=== PATIENT | female | born 1955 | race Caucasian/White ===

== ENCOUNTER → 2018-06-25 | Day surgery (SDC) | payer OTHER ==
--- NOTE | 2018-07-01 14:29 | PATH ---
Cytology Non-Gynecological Report Patient Name: MOHAMUD HYLTON [facility]. Rec. #: [id number] /Age/Gender: 1955 (Age: 62) / F Account: [id number] Location: RADIOLOGY INTER Taken: 06/25/2018 Received: 06/25/2018 Reported: 06/26/2018 Physicians: Casi Bobo M.D. Specimen(s) Received RIGHT THYROID FNA Clinical History Right thyroid nodule, 2.47 x 2.01 x 1.47 cm Final Diagnosis THYROID, RIGHT, FINE NEEDLE ASPIRATION: SATISFACTORY FOR EVALUATION. BETHESDA CLASS II: BENIGN. CYTOLOGIC FINDINGS ARE CONSISTENT WITH A BENIGN FOLLICULAR NODULE. SMALL FOLLICULAR CELLS, COLLOID, RARE MACROPHAGES, AND FEW LYMPHOCYTES PRESENT. Electronically Signed Becky Bone M.D. Gross Description Received are eight direct smears, four of which are air-dried and Diff-Quik stained, and four of which are alcohol fixed and Pap stained. Also received is 20 ml of bloody formalin from which one cellblock is prepared.
== END | disposition home or self-care (01) ==
LOC: JRADIR 08:25
PROVIDERS: ATTEND Internal Medicine
PROC: 0G9H3ZX Drainage of Right Thyroid Gland Lobe, Percutaneous Approach, Diagnostic (ICD-10-PCS; principal; 2018-06-25)
DX: E04.1 Nontoxic single thyroid nodule (principal)
CPT/HCPCS: 76942; 88173; 88305-TC

== ENCOUNTER 2019-02-24 20:39 | Inpatient (IN) | payer OTHER | END 2019-02-27 14:46 | disposition home or self-care (01) | LOC: JERBED 02-25 03:49 → JER 20:39 → J4W 02-25 18:06 ==

== ENCOUNTER 2019-03-01 03:10 | Inpatient (IN) | payer OTHER ==
[2019-03-01] MEDS ORDERED: MAGNESIUM SULF 50% (8.12 MEQ/2 ML-1 GM VIAL) IVPB ONE (03:44)
[2019-03-01] MEDS ORDERED: ALBUTEROL SO4 2.5/IPRATROPIUM 0.5 INH SOL 3 ML VIAL.NEB. NEB ONE ×3 (03:44→08:42)
[2019-03-01] MEDS ORDERED: SODIUM CHLORIDE 1,000 ML IV STA (03:44)
[2019-03-01] MEDS ORDERED: methylPREDNISolone NA SUCC 125 MG/2 ML VIAL IVPB ONE (03:44)
[2019-03-01 03:46] VITALS: BMI 35.5
[2019-03-01] MEDS ORDERED: MAGNESIUM 1GM/D5W - 2 GM/200 ML IVPB IVPB ONE (04:03)
[2019-03-01] MEDS ORDERED: methylPREDNISolone NA SUCC 125 MG/2 ML VIAL ONE (04:03)
--- NOTE | 2019-03-01 04:08 | PDOC ---
History of Present Illness - General Chief Complaint: Shortness of Breath Stated Complaint: SHORTNESS OF BREATH Time Seen by Provider: 03/01/19 03:37 History Source: Patient Exam Limitations: No Limitations - History of Present Illness Initial Comments: 63 yo F w a hx of asthma, bronchitis, thyroid disease presents with SOB stating she believes she is having an asthma attack. The patient was recently discharged from the hospital but says she has not felt right ever since going home. She was initially able to go about her daily activities but she became progressively short of breath to the point where her nebulizers were not working and she was extremely tired, short of breath and started feeling like she is having a bad asthma exacerbation again. She felt like she needed to come back into the hospital because she could not breathe well on her own. The patient also endorses nausea associated with occasional vomiting. She states that when she coughs alot she feels like some blood comes up at the same time. PCP: Dr. Berrios PSH: b/l knee replacements, cardiac cath without stents Social Hx: Former smoker. Denies current toxic habits. Allergies: NKA, NKDA Past History - Past Medical History Allergies/Adverse Reactions: Allergies Allergy/AdvReac Type Severity Reaction Status Date / Time No Known Drug Allergies Allergy Verified 03/01/19 03:44 Home Medications: Ambulatory Orders Albuterol 0.083% Nebulizer Kristyn [Ventolin 0.083% Nebulizer Soln -] 1 neb NEB QID 02/25/19 Budesonide/Formeterol Fumarate [SYMBICORT 80/4.5mcg -] 2 puff IH BID #1 inhaler 02/27/19 Lisinopril [Prinivil] 20 mg PO DAILY #60 tablet 02/27/19 predniSONE [Deltasone -] 20 mg PO ASDIR #17 tablet 02/27/19 Anemia: Yes Asthma: Yes Cancer: No Cardiac Disorders: No CVA: No COPD: No CHF: Yes Dementia: No Diabetes: No GI Disorders: No Disorders: No HTN: Yes Hypercholesterolemia: No Liver Disease: No Seizures: No Thyroid Disease: Yes - Surgical History Abdominal Surgery: No Appendectomy: No Cardiac Surgery: No Cholecystectomy: No Lung Surgery: No Neurologic Surgery: No Orthopedic Surgery: Yes (BILATERAL KNEE ARTHROSCOPY) - Suicide/Smoking/Psychosocial Hx Smoking History: Unknown if ever smoked Have you smoked in the past 12 months: No Number of Cigarettes Smoked Daily: 0 If you are a former smoker, when did you quit?: 40 Information on smoking cessation initiated: No Hx Alcohol Use: No Drug/Substance Use Hx: No Substance Use Type: None, Alcohol Hx Substance Use Treatment: No Review of Systems - Review of Systems Able to Perform ROS?: Yes Comments:: CONSTITUTIONAL: No fever, no chills, + fatigue EYES: No visual changes ENT: No ear pain, no sore throat CARDIOVASCULAR: + chest pain, no palpitations RESPIRATORY: + cough, + SOB GI: No abdominal pain, no nausea, no vomiting, no constipation, no diarrhea GENITOURINARY: No dysuria, no frequency, no hematuria MUSKULOSKELETAL: No backpain, no joint pain, no myalgias SKIN: No rash NEURO: No headache *Physical Exam - Vital Signs Last Vital Signs Temp Pulse Resp BP Pulse Ox 99.7 F H 102 H 22 H 159/80 89 L 03/01/19 03:20 03/01/19 03:20 03/01/19 03:20 03/01/19 03:20 03/01/19 03:20 - Physical Exam Comments: CONSTITUTIONAL: Patient is sitting up in bed struggling to breathe. Moderate distress. HEAD: Normocephalic; atraumatic EYES: PERRL; EOM intact ENMT: External appears normal; normal oropharynx NECK: Supple; non-tender; no cervical lymphadenopathy CARD: Tachycardic rate. Normal S1, S2; no murmurs, rubs, or gallops RESP: The patient is having a hard time getting air in. She has diffuse bilateral wheezes and rhonchi on the right side of her chest. ABD: Soft, non-distended; non-tender; no palpable organomegaly, no palpable hernias EXT: Normal ROM in all four extremities; non-tender to palpation; distal pulses intact SKIN: Warm, dry, no rash NEURO: No focal neurological deficiencies. ED Treatment Course - LABORATORY CBC & Chemistry Diagram: 03/01/19 03:56 03/01/19 03:56 - RADIOLOGY Radiology Studies Ordered: Category Date Time Status CHEST X-RAY PORTABLE* [RAD] Stat Radiology 03/01/19 03:45 Ordered Medical Decision Making - Medical Decision Making 63 yo F w a hx of asthma, bronchitis, thyroid disease presents with SOB stating she believes she is having an asthma attack. The patient was recently discharged from the hospital but says she has not felt right ever since going home. She was initially able to go about her daily activities but she became progressively short of breath to the point where her nebulizers were not working and she was extremely tired, short of breath and started feeling like she is having a bad asthma exacerbation again. She felt like she needed to come back into the hospital because she could not breathe well on her own. The patient also endorses nausea associated with occasional vomiting. She states that when she coughs alot she feels like some blood comes up at the same time. Vital Signs Temp Pulse Resp BP Pulse Ox 99.7 F H 102 H 22 H 159/80 89 L 03/01/19 03:20 03/01/19 03:20 03/01/19 03:20 03/01/19 03:20 03/01/19 03:20 DDx IBNLT: Asthma exacerbation, bronchitis, PNA, electrolyte/metabolic disturbance, CHF, ACS/NV Plan: Labs, ekg, cxr, breathing treatments, steroids, mag, Abx, probable admit. CXR shows right sided infiltrate - Will cover patient with Abx and then admit to the hospital *DC/Admit/Observation/Transfer Diagnosis at time of Disposition: PNA (pneumonia), Asthma exacerbation, Elevated troponin, CHF (congestive heart failure), Bronchitis, Ground glass opacity present on imaging of lung, Obesity, Shortness of breath, Dyspnea - Discharge Dispostion Condition at time of disposition: Stable Decision to Admit order: Yes - Referrals - Patient Instructions - Post Discharge Activity
[2019-03-01 04:11] LABS: VENOUS PC02 44.3 mmHg (41-51); VENOUS PH 7.44 (7.31-7.41)
[2019-03-01 04:12] LABS: BASO % 0.2 % (0-2.0); EOS % 0.1 % (0-4.5); HEMATOCRIT 33.2 % (32.4-45.2); HEMOGLOBIN 10.3 GM/dL (10.7-15.3); LYMPH % 8.4 % (8-40); MCH 23.3 pg (25.7-33.7); MCHC 31.1 g/dl (32.0-36.0); MEAN CELL VOLUME 74.7 fl (80-96); MEAN PLT VOLUME 8.6 fl (7.5-11.1); MONO % 10.2 % (3.8-10.2); NEUT % 81.1 % (42.8-82.8); PLATELET COUNT 286 K/MM3 (134-434); RBC 4.45 M/mm3 (3.60-5.2); RDW 19.1 % (11.6-15.6); WHITE BLOOD COUNT 18.5 K/mm3 (4.0-10.0)
[2019-03-01] MEDS ORDERED: AZITHROMYCIN IVPB 500 MG in DEXTROSE 5%-WATER - 250 ML IVPB ONE (04:42)
[2019-03-01] MEDS ORDERED: CEFTRIAXONE 1 GM in DEXTROSE 5%-WATER - 50 ML IVPB ONE (04:42)
[2019-03-01] MEDS ORDERED: ONDANSETRON 4 MG/2 ML VIAL IVPUSH ONE (04:47)
[2019-03-01 04:51] LABS: N-TERMINAL BNP 5782.2 pg/ml (5-125)
[2019-03-01 04:52] LABS: BILIRUBIN,TOTAL 0.8 mg/dL (0.2-1); BLOOD UREA NITROGEN 18.5 mg/dL (7-18); CALCIUM 8.8 mg/dL (8.5-10.1); CREATININE 0.7 mg/dL (0.55-1.3); POTASSIUM 4.2 mmol/L (3.5-5.1); TOT PROT 7.8 g/dl (6.4-8.2)
[2019-03-01] MEDS ORDERED: AZITHROMYCIN IVPB 500 MG/250 ML BAG IVPB ONE (05:00)
[2019-03-01] MEDS ORDERED: ONDANSETRON 4 MG/2 ML VIAL ONE (05:00)
[2019-03-01] MEDS ORDERED: CEFTRIAXONE 1 GM/50 ML BAG ONE (05:01)
--- NOTE | 2019-03-01 05:01 | PDOC ---
Attending Attestation - Resident Resident Name: Gerson Templeton - ED Attending Attestation I have performed the following: I have examined & evaluated the patient, The case was reviewed & discussed with the resident, I agree w/resident's findings & plan - HPI HPI: 03/01/19 05:43 Pt comes with increased difficulty breathing. - Physicial Exam PE: 03/01/19 05:43 Agree with resident exam. Coarse breath sounds bilat. Right side worse than left - Medical Decision Making 03/01/19 05:36 Right sided consolidation/ large pneumonia forming; not previously seen on the CT scan of the mavis done on Feb 25. 03/01/19 19:33 Pt admitted, as she looks bad, low pulsox, incessant cough and she needs blood cultures, as she never was cultured before, and we need to make sure she improves on current abx regimen before discharging. She returned from a 10 day fabiana in [place], and was in airports, etc, and may have complicated bacterial infection.
[2019-03-01] MEDS ORDERED: FUROSEMIDE 40 MG/4 ML INJECTABLE VIAL IVPUSH ONE (05:45)
[2019-03-01] MEDS ORDERED: FUROSEMIDE 40 MG/4 ML INJECTABLE VIAL ONE ×2 (06:14→08:05)
--- NOTE | 2019-03-01 06:47 | PN ---
Teaching Attending Note Name of Resident: Manasa Alston ATTENDING PHYSICIAN STATEMENT I saw and evaluated the patient. Chart, data, imaging reviewed. I reviewed the resident's note and discussed the case with the resident. I agree with the resident's findings and plan as documented. SUBJECTIVE: 63 yo F w a hx of asthma, bronchitis, cad, thyroid disease discharged on 02/27 after treated for pna, returned c/o shortness of breath right back sharp pain with cough, productive cough with some scanty bloody streaks for the past 2 days. She was sent home on steroid taper. Recent travel to [place]. OBJECTIVE: Last Vital Signs Temp Pulse Resp BP Pulse Ox 98.7 F 97 H 18 129/79 97 03/01/19 06:24 03/01/19 06:24 03/01/19 06:24 03/01/19 06:24 03/01/19 06:24 general- speaks in full sentences, appears ill but nontoxic heent -atraumatic, normocephalic chest - b/l rhonhi and scant expiratory wheezing cor-s1+s2+tachycardia abdomen- soft , nt ext -no pedal edema Abnormal Lab Results 03/01/19 03/01/19 03/01/19 03:56 03:56 03:56 WBC 18.5 H Hgb 10.3 L MCV 74.7 L MCH 23.3 L MCHC 31.1 L RDW 19.1 H Absolute Neuts (auto) 15.0 H VBG pH POC VBG pO2 VBG HCO3 VBG O2 Sat (Jeff) VBG Base Excess Anion Gap 7 L BUN 18.5 H Random Glucose 123 H Troponin I 0.08 H B-Natriuretic Peptide 5782.2 H 03/01/19 03:56 WBC Hgb MCV MCH MCHC RDW Absolute Neuts (auto) VBG pH 7.44 H POC VBG pO2 28.0 L VBG HCO3 29.5 H VBG O2 Sat (Jeff) 46.2 L VBG Base Excess 5.2 H Anion Gap BUN Random Glucose Troponin I B-Natriuretic Peptide cxr reviewed appears to b/l infiltrates r>L ekg -old lbbb ASSESSMENT AND PLAN: #Sepsis secondary to community acquired pneumonia -admit to med/surg -blood cultures -urine legionella ag -sputum cx -pulm f/u -ceftriaxone -azithromycin -supplemental 02 -abg #Asthma exacerbation -methylprednisone 40mg IV q12hrs -duonebs q6hrs -pulm f/u -avoid second hand smoke -home med compliance enforcement #Trop+- may be from demand ischemia. ekg with no acute ischemic changes -trend trop dvt prophylaxis
[2019-03-01] MEDS ORDERED: ALBUTEROL SO4 0.083% IH SOL 2.5 MG/3 ML VIAL.NEB. NEB PRN ×2 (06:50→12:35)
--- NOTE | 2019-03-01 06:53 | HP ---
CHIEF COMPLAINT: SOB x 2-3 days PCP: Dr. Cuenca HISTORY OF PRESENT ILLNESS: 63 y/o F with PMH asthma, bronchitis, thyroid dz (benign nodules previously), hx cath nonobstructive CAD, HTN, who presents to the ED c/o SOB over the past 2- 3 days. As per pt, she was d/c on 02/27/19 and was initially feeling well; was ambulating with ease, breathing well. States that the following day, at 10AM she was getting into her car and noticed that she had increased wheezing , SOB, and a sharp pain in her R side. States that it worsened at noon while she was seated, watching TV and her wheezing continued. Was not relieved by ventolin nebs PRN or symbicort. At this time, she was also nauseated. At 2AM today, pt decided to come in as she could not take the SOB any longer. Endorses subjective fever and chills, and blood-tinged sputum. Does not smoke currently. Exposed to second hand smoke from her job. Recently traveled from [place] on Sunday. On past admission, pt was managed with medrol and d/c on prednisone taper. States she took 20mg day prior to admission without relief. Had a Chest CT done which revealed chronic lung dz, groundglass opacities, atelectasis and nodularity. Denies ever needing home 02. 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 does not smoke actively. +second hand smoke at job. used to smoke "few cigarettes" a day for "many years" Alcohol: social Drugs: denies Family History: denies Allergies No Known Drug Allergies Allergy (Verified 03/01/19 03:44) HOME MEDICATIONS: Home Medications Medication Instructions Recorded Albuterol 0.083% Nebulizer Kristyn 1 neb NEB QID 02/25/19 [Ventolin 0.083% Nebulizer Soln -] Budesonide/Formeterol Fumarate 2 puff IH BID #1 inhaler 02/27/19 [SYMBICORT 80/4.5mcg -] Lisinopril [Prinivil] 20 mg PO DAILY #60 tablet 02/27/19 predniSONE [Deltasone -] 20 mg PO ASDIR #17 tablet 02/27/19 from past admission REVIEW OF SYSTEMS CONSTITUTIONAL: Absent: fever, chills, diaphoresis, generalized weakness, malaise, loss of appetite, weight change HEENT: Absent: rhinorrhea, nasal congestion, throat pain, throat swelling, difficulty swallowing, mouth swelling, ear pain, eye pain, visual changes CARDIOVASCULAR: Absent: chest pain, syncope, palpitations, irregular heart rate, lightheadedness , peripheral edema RESPIRATORY: +cough, SOB, wheezing Absent: cough, shortness of breath, dyspnea with exertion, orthopnea, wheezing, stridor, hemoptysis GASTROINTESTINAL: Absent: abdominal pain, abdominal distension, nausea, vomiting, diarrhea, constipation, melena, hematochezia GENITOURINARY: Absent: dysuria, frequency, urgency, hesitancy, hematuria, flank pain, genital pain MUSCULOSKELETAL: Absent: myalgia, arthralgia, joint swelling, back pain, neck pain SKIN: Absent: rash, itching, pallor HEMATOLOGIC/IMMUNOLOGIC: Absent: easy bleeding, easy bruising, lymphadenopathy, frequent infections ENDOCRINE: Absent: unexplained weight gain, unexplained weight loss, heat intolerance, cold intolerance NEUROLOGIC: Absent: headache, focal weakness or paresthesias, dizziness, unsteady gait, seizure, mental status changes, bladder or bowel incontinence PSYCHIATRIC: Absent: anxiety, depression, suicidal or homicidal ideation, hallucinations. PHYSICAL EXAMINATION Vital Signs - 24 hr 03/01/19 03/01/19 03:20 06:24 Temperature 99.7 F H 98.7 F Pulse Rate 102 H Pulse Rate [ 97 H Radial] Respiratory 22 H 18 Rate Blood Pressure 159/80 Blood Pressure 129/79 [Right Arm] O2 Sat by Pulse 89 L 97 Oximetry (%) GENERAL: Awake, alert, and fully oriented, in no acute distress. on 2L 02 sat 98 HEAD: Normal with no signs of trauma. EYES: Pupils equal, round and reactive to light, extraocular movements intact, sclera anicteric, conjunctiva clear. EARS, NOSE, THROAT: Ears normal, nares patent, oropharynx clear without exudates. Moist mucous membranes. NECK: Normal range of motion, supple LUNGS: +scattered rhonchi. poor air entry. +wheezing HEART: Regular rate and rhythm, normal S1 and S2 without murmur, rub or gallop. ABDOMEN: Soft, obese nontender, not distended, normoactive bowel sounds LOWER EXTREMITIES: 2+ pt pulses, warm, well-perfused. No calf tenderness. No peripheral edema. NEUROLOGICAL: Cranial nerves II-XII intact. PSYCHIATRIC: Cooperative. Good eye contact. . Laboratory Results - last 24 hr 03/01/19 03/01/19 03/01/19 03:56 03:56 03:56 WBC 18.5 H RBC 4.45 Hgb 10.3 L Hct 33.2 MCV 74.7 L MCH 23.3 L MCHC 31.1 L RDW 19.1 H Plt Count 286 D MPV 8.6 Absolute Neuts (auto) 15.0 H Neutrophils % 81.1 Lymphocytes % 8.4 Monocytes % 10.2 Eosinophils % 0.1 D Basophils % 0.2 Nucleated RBC % 0 VBG pH POC VBG pCO2 POC VBG pO2 VBG HCO3 VBG O2 Sat (Jeff) VBG Base Excess Sodium 136 Potassium 4.2 Chloride 100 Carbon Dioxide 29 Anion Gap 7 L BUN 18.5 H Creatinine 0.7 Est GFR (CKD-EPI)AfAm 107.62 Est GFR (CKD-EPI)NonAf 92.86 Random Glucose 123 H Calcium 8.8 Total Bilirubin 0.8 AST 20 ALT 50 Alkaline Phosphatase 90 Troponin I 0.08 H B-Natriuretic Peptide 5782.2 H Total Protein 7.8 Albumin 4.0 VBG 03/01/19 03:56 VBG pH 7.44 H POC VBG pCO2 44.3 POC VBG pO2 28.0 L VBG HCO3 29.5 H VBG O2 Sat (Jeff) 46.2 L VBG Base Excess 5.2 H CXR: +possible RML, RLL infiltrate. await official read EKG: LBBB (has had prevoiously) qtc 469ms ASSESSMENT/PLAN: 63 y/o F with PMH asthma, bronchitis, thyroid dz (benign nodules previously), hx cath nonobstructive CAD, HTN, who presents to the ED c/o SOB over the past 2- 3 days. #SOB likely 2/2 asthma exacerbation w/ CAP #acute bronchitis -recent admission, however from community will tx empirically for CAP -requiring 02 to improve sat. with possible ILD, poor lung compliance and possible obesity hypoventilation synd d/t excess wt -will tx with rocephin, zithro -f/u blood cx, sputum cx, legionella -c/w medrol 40mg IVP BID can adjust accordingly. as on steroids can be immunosuppressed -f/u ABG, peakflow -duonebs RQID, ventolin nebs PRN -for outpt PFTs, sleep study, chest CT f/u, igE testing. avoid second hand smoke -pulm consult: Dr. Moreno; saw previously #tropinemia -likely 2/2 demand; will trend -on past admission, flat trend (~0.12) #HTN -c/w lisinopril; was started on past admission -avoid BB in setting of asthma #F/E/N no IVF req at this time continue to follow lytes na controlled diet #PPX DVT: hep sq GI: protonix as on steroids #Dispo admit to med-surg. # Visit type - Emergency Visit Emergency Visit: Yes ED Registration Date: 03/01/19 Care time: The patient presented to the Emergency Department on the above date and was hospitalized for further evaluation of their emergent condition. - New Patient This patient is new to me today: Yes Date on this admission: 03/01/19 - Critical Care Critical Care patient: No
[2019-03-01] MEDS: HEPARIN NA (PORCINE) 5,000 UNITS/ML 1ML VIAL SQ SCH ×3 (08:00→21:48)
[2019-03-01 08:08] LABS: ARTERIAL BLD GAS O2 SATURATION 90.6 % (95-98); ARTERIAL BLOOD GAS BASE EXCESS 3.5 meq/l (-2-2); ARTERIAL BLOOD GAS PCO2 43.9 mmHg (35-45); ARTERIAL BLOOD GAS PO2 61.3 mmHg (80-105); ARTERIAL BLOOD GAS pH 7.42 (7.35-7.45)
[2019-03-01 08:19] LABS: ALLENS TEST POSITIVE
[2019-03-01] MEDS ORDERED: HEPARIN NA (PORCINE) 5,000 UNITS/ML 1ML VIAL ONE (08:42)
--- NOTE | 2019-03-01 08:50 | PN ---
Progress Note, Physician Chief Complaint: Ms Trevino says she is wheezing and short of breath again. she states she is coughing up a small amount of blood. Pleuritic chest pain and nausea with coughing. - Current Medication List Current Medications: Active Medications Albuterol Sulfate (Ventolin 0.083% Nebulizer Soln -) 1 amp NEB Q4H PRN PRN Reason: SHORT OF BREATH/WHEEZING Albuterol/Ipratropium (Duoneb -) 1 amp NEB RQID IDALIA Heparin Sodium (Porcine) (Heparin -) 5,000 unit SQ TID IDALIA Ceftriaxone Sodium 1 gm/ (Dextrose) 50 mls @ 100 mls/hr IVPB DAILY@0400 IDALIA Azithromycin 500 mg/ Dextrose 250 mls @ 250 mls/hr IVPB DAILY@0400 IDALIA Lisinopril (Prinivil) 20 mg PO DAILY IDALIA Methylprednisolone Sodium Succinate (Solu-Medrol -) 40 mg IVPUSH BID IDALIA Pantoprazole Sodium (Protonix -) 40 mg PO DAILY IDALIA - Objective Vital Signs: Vital Signs Temperature 37.1 C 03/01/19 06:24 Pulse Rate 97 H 03/01/19 06:24 Respiratory Rate 18 03/01/19 06:24 Blood Pressure 129/79 03/01/19 06:24 O2 Sat by Pulse Oximetry (%) 97 03/01/19 06:24 Constitutional: Yes: No Distress, Calm, Obese Cardiovascular: Yes: Regular Rate and Rhythm. No: Gallop, Murmur, Rub Respiratory: Yes: Regular, On Nasal O2, Rhonchi (in all pandey), SOB, Wheezes. No: CTA Bilaterally, Rales Gastrointestinal: Yes: Normal Bowel Sounds, Soft. No: Distention, Tenderness Extremities: Yes: WNL Edema: No Labs: CBC, BMP 03/01/19 03:56 03/01/19 03:56 Problem List - Problems (1) PNA (pneumonia) Assessment/Plan: -chest x-ray read as infiltrative/congestive changes -recent CT scan shows no infiltrate -possible pneumonia -awaiting chest x-ray to be uploaded to review -continue rocephin and zithromax Code(s): J18.9 - PNEUMONIA, UNSPECIFIED ORGANISM (2) Asthma exacerbation Assessment/Plan: -patient with recurrence of exacerbation -continue IV solumedrol -continue bronchodilators -pulmonary consulted -also with minimal hemoptysis, suspect secondary to coughing with abrasion but will d/w pulmonary Code(s): J45.901 - UNSPECIFIED ASTHMA WITH (ACUTE) EXACERBATION Qualifiers: Asthma severity: moderate Asthma persistence: persistent Qualified Code(s ): J45.41 - Moderate persistent asthma with (acute) exacerbation (3) CHF (congestive heart failure) Assessment/Plan: -patient's lung exam more ronchorous than wheezing -suspect aspect of CHF exacerbation this hospital stay -received lasix 40mg IV x1 in the ED -consult cardiology to evaluate Code(s): I50.9 - HEART FAILURE, UNSPECIFIED Qualifiers: (4) Obesity Assessment/Plan: -outpatient weight loss plan Code(s): E66.9 - OBESITY, UNSPECIFIED Qualifiers: (5) HTN (hypertension) Assessment/Plan: -needs improved control -however unsure if running hypertensive acutely because in hospital/steroids/ beta agonist or is poorly controlled -continue to monitor -will d/w cardiology as well Code(s): I10 - ESSENTIAL (PRIMARY) HYPERTENSION
[2019-03-01] MEDS: ALBUTEROL SO4 2.5/IPRATROPIUM 0.5 INH SOL 3 ML VIAL.NEB. NEB SCH ×4 (09:00→19:35)
[2019-03-01 09:42] LABS: BASO % 0.1 % (0-2.0); HEMATOCRIT 33.7 % (32.4-45.2); HEMOGLOBIN 10.9 GM/dL (10.7-15.3); LYMPH % 2.6 % (8-40); MCH 24.4 pg (25.7-33.7); MCHC 32.5 g/dl (32.0-36.0); MEAN CELL VOLUME 75.1 fl (80-96); MEAN PLT VOLUME 8.6 fl (7.5-11.1); MONO % 5.6 % (3.8-10.2); NEUT % 91.7 % (42.8-82.8); RBC 4.48 M/mm3 (3.60-5.2); RDW 18.8 % (11.6-15.6); WHITE BLOOD COUNT 17.1 K/mm3 (4.0-10.0)
[2019-03-01 09:57] LABS: PLATELET COUNT 207 K/MM3 (134-434)
[2019-03-01] MEDS ORDERED: methylPREDNISolone NA SUCC 40 MG/1 ML VIAL IVPUSH SCH (10:00)
[2019-03-01 10:13] LABS: BLOOD UREA NITROGEN 17.3 mg/dL (7-18); CALCIUM 8.6 mg/dL (8.5-10.1); CREATININE 0.9 mg/dL (0.55-1.3); POTASSIUM 3.8 mmol/L (3.5-5.1)
[2019-03-01 10:14] LABS: MAGNESIUM 2.8 mg/dL (1.8-2.4)
[2019-03-01] MEDS: PANTOPRAZOLE 40 MG TABLET (FP) PO SCH (12:02)
[2019-03-01] MEDS: LISINOPRIL 20 MG TABLET (FP) PO SCH (12:03)
--- NOTE | 2019-03-01 12:11 | CON.CARD ---
Cardiology Consult (text) - Consultation Consultation Note: cc: sob hpi: 63 f hx lbbb, systolic chf (NICM), MR, asthma, htn, here with sob. Recently discharged, was treated for asthma exacerbation. After being discharged, felt okay then had worsening dyspnea, pain in R side and R chest. Feels better after getting nebs, lasix. Sees me for cardio. pmh: per hpi psh: knee surgery social: ex tob fam: no premature cad, scd ros: per hpi; all others normal meds: Home Medications Medication Instructions Recorded Albuterol 0.083% Nebulizer Kristyn 1 neb NEB QID 02/25/19 [Ventolin 0.083% Nebulizer Soln -] Budesonide/Formeterol Fumarate 2 puff IH BID #1 inhaler 02/27/19 [SYMBICORT 80/4.5mcg -] Lisinopril [Prinivil] 20 mg PO DAILY #60 tablet 02/27/19 predniSONE [Deltasone -] 20 mg PO ASDIR #17 tablet 02/27/19 pe: Vital Signs Period Temp Pulse Resp BP Sys/Gatica Pulse Ox Last 24 Hr 98.7 F-99.7 F 82-102 18-22 129-159/62-80 89-97 nad + jvd rrr s1s2 no mrg diff bl exp wheeze, rhonchi, nl eff aao3 no le e/c/c abd nt nd pos bs no jaundice diaphoresis pos dp pt no carotid bruits Laboratory Last Values Laboratory Last Values WBC 17.1 K/mm3 (4.0-10.0) H 03/01/19 09:16 RBC 4.48 M/mm3 (3.60-5.2) 03/01/19 09:16 Hgb 10.9 GM/dL (10.7-15.3) 03/01/19 09:16 Hct 33.7 % (32.4-45.2) 03/01/19 09:16 MCV 75.1 fl (80-96) L 03/01/19 09:16 MCH 24.4 pg (25.7-33.7) L 03/01/19 09:16 MCHC 32.5 g/dl (32.0-36.0) 03/01/19 09:16 RDW 18.8 % (11.6-15.6) H 03/01/19 09:16 Plt Count 207 K/MM3 (134-434) D 03/01/19 09:16 MPV 8.6 fl (7.5-11.1) 03/01/19 09:16 Absolute Neuts (auto) 15.7 K/mm3 (1.5-8.0) H 03/01/19 09:16 Neutrophils % 91.7 % (42.8-82.8) H 03/01/19 09:16 Lymphocytes % 2.6 % (8-40) L D 03/01/19 09:16 Monocytes % 5.6 % (3.8-10.2) 03/01/19 09:16 Eosinophils % 0.0 % (0-4.5) D 03/01/19 09:16 Basophils % 0.1 % (0-2.0) 03/01/19 09:16 Nucleated RBC % 0 % (0-0) 03/01/19 09:16 Anticoagulation Therapy No Result Required. 03/01/19 08:00 Puncture Site Right radial 03/01/19 08:00 ABG pH 7.42 (7.35-7.45) 03/01/19 08:00 ABG pCO2 at Pt Temp 43.9 mmHg (35-45) 03/01/19 08:00 ABG pO2 at Pt Temp 61.3 mmHg (80-105) L 03/01/19 08:00 ABG HCO3 27.9 mmol/L (22-27) H 03/01/19 08:00 ABG O2 Sat (Measured) 90.6 % (95-98) L 03/01/19 08:00 ABG O2 Content 12.9 % vol (15-22) L 03/01/19 08:00 ABG Base Excess 3.5 meq/l (-2-2) H 03/01/19 08:00 Cholo Test Positive 03/01/19 08:00 VBG pH 7.44 (7.31-7.41) H 03/01/19 03:56 POC VBG pCO2 44.3 mmHg (41-51) 03/01/19 03:56 POC VBG pO2 28.0 mmHg (30-40) L 03/01/19 03:56 VBG HCO3 29.5 mmol/L (23-29) H 03/01/19 03:56 VBG O2 Sat (Jeff) 46.2 % (70-80) L 03/01/19 03:56 VBG Base Excess 5.2 meq/l (-2-2) H 03/01/19 03:56 O2 Delivery Device No Result Required. 03/01/19 08:00 Oxygen Flow Rate No 03/01/19 08:00 Vent Mode No Result Required. 03/01/19 08:00 Vent Rate No Result Required. 03/01/19 08:00 Mechanical Rate No Result Required. 03/01/19 08:00 Pressure Support Vent No Result Required. 03/01/19 08:00 Sodium 137 mmol/L (136-145) 03/01/19 09:16 Potassium 3.8 mmol/L (3.5-5.1) 03/01/19 09:16 Chloride 99 mmol/L (98-107) 03/01/19 09:16 Carbon Dioxide 31 mmol/L (21-32) 03/01/19 09:16 Anion Gap 7 MMOL/L (8-16) L 03/01/19 09:16 BUN 17.3 mg/dL (7-18) 03/01/19 09:16 Creatinine 0.9 mg/dL (0.55-1.3) 03/01/19 09:16 Est GFR (CKD-EPI)AfAm 79.42 03/01/19 09:16 Est GFR (CKD-EPI)NonAf 68.53 03/01/19 09:16 Random Glucose 243 mg/dL (74-106) H 03/01/19 09:16 Calcium 8.6 mg/dL (8.5-10.1) 03/01/19 09:16 Phosphorus 4.0 mg/dL (2.5-4.9) 03/01/19 09:16 Magnesium 2.8 mg/dL (1.8-2.4) H 03/01/19 09:16 Total Bilirubin 0.8 mg/dL (0.2-1) 03/01/19 03:56 AST 20 U/L (15-37) 03/01/19 03:56 ALT 50 U/L (13-61) 03/01/19 03:56 Alkaline Phosphatase 90 U/L (45-117) 03/01/19 03:56 Troponin I 0.07 ng/ml (0.00-0.05) H 03/01/19 09:16 B-Natriuretic Peptide 5782.2 pg/ml (5-125) H 03/01/19 03:56 Total Protein 7.8 g/dl (6.4-8.2) 03/01/19 03:56 Albumin 4.0 g/dl (3.4-5.0) 03/01/19 03:56 echo 02/2019: mild lve, sev dec lvef, global hk, g2dd, lae, nl rv, mod-sev mr, mild tr CXR: congestive and infiltrative findings ecg: sr, old lbbb a/p: 63 f hx lbbb, systolic chf (NICM), MR, asthma, htn, here with sob. sob, asthma: -current sxs seem related to asthma primarily; congestive findings on CXR and elevated JVD suggest component of CHF - cont lasix 40 mg IV daily, monitor daily weights, Cr, lytes -cont tx per pulm abnl ecg: -pt with chronic lbbb -recent cath with non obs cad chronic syst chf, MR: -pt with known sev dec lvef, NICM thought to be from MR. Had cath 08/2017 showing non obs cad. -vol stable off diuretics -has been noncompliant with cardiac f/u and treatment -cont lisinopril elevated trops: -borderline trop elevation with flat trend and nl ck, not c/w acs htn: -cont lisinopril
[2019-03-01 12:48] LABS: ANISOCYTOSIS 1+; MACROCYTOSIS 0; OVALOCYTE 1+; PLATELET ESTIMATE NORMAL
--- NOTE | 2019-03-01 13:16 | CON.PULM ---
Consult Consult Specialty:: PULMONARY Referred by:: TAVARES Reason for Consultation:: SOB/COUGH/WHEEZE - History of Present Illness Chief Complaint: SOB/COUGH/WHEEZE History of Present Illness: 63 y/o F with PMH asthma, bronchitis, thyroid dz (benign nodules previously), hx cath nonobstructive CAD, HTN, who presents to the ED c/o SOB over the past 2- 3 days. As per pt, she was d/c on 02/27/19 and was initially feeling well; was ambulating with ease, breathing well. States that the following day, at 10AM she was getting into her car and noticed that she had increased wheezing , SOB, and a sharp pain in her R side. Subjective fever and chills, and blood- tinged sputum. Does not smoke currently. Exposed to second hand smoke from her job. Recently traveled from [place] on Sunday. Had recent cta to r/o PE which was negative for PE. - History Source History Provided By: Patient, Friend, Medical Record Limitations to Obtaining History: No Limitations - Past Medical History PARK GUIDE: No: Alzheimer's Cardio/Vascular: Yes: CHF, HTN, Mitral Insufficiency, Other (LVD) Pulmonary: Yes: Asthma, Bronchitis, Pneumonia. No: Cancer, COPD, O2 Dependent, Previously Intubated, Pulmonary Embolus, Pulmonary Fibrosis Gastrointestinal: No: Ascites, Cancer Hepatobiliary: No: Cirrhosis Renal/: No: Renal Failure Reproductive: Yes: Postmenopausal ...: No Heme/Onc: Yes: Anemia Psych: No: Addictions - Past Surgical History Past Surgical History: Yes: Joint Replacement - Alcohol/Substance Use Hx Alcohol Use: No - Smoking History Smoking history: Never smoked Have you smoked in the past 12 months: No Aproximately how many cigarettes per day: 0 If you are a former smoker, when did you quit?: 40 - Social History ADL: Independent History of Recent Travel: Yes Home Medications - Allergies Allergies/Adverse Reactions: Allergies Allergy/AdvReac Type Severity Reaction Status Date / Time No Known Drug Allergies Allergy Verified 03/01/19 03:44 - Home Medications Home Medications: Ambulatory Orders Albuterol 0.083% Nebulizer Kristyn [Ventolin 0.083% Nebulizer Soln -] 1 neb NEB QID 02/25/19 Budesonide/Formeterol Fumarate [SYMBICORT 80/4.5mcg -] 2 puff IH BID #1 inhaler 02/27/19 Lisinopril [Prinivil] 20 mg PO DAILY #60 tablet 02/27/19 predniSONE [Deltasone -] 20 mg PO ASDIR #17 tablet 02/27/19 Family Disease History - Family Disease History Family History: Unremarkable Review of Systems - Review of Systems Constitutional: reports: Fever Eyes: denies: Blurred Vision HENT: denies: Difficult Swallowing Neck: denies: Decreased ROM Cardiovascular: reports: Shortness of Breath. denies: Chest Pain Respiratory: reports: Cough, Exercise Intolerance, Hemoptysis, SOB, SOB on Exertion, Wheezing Gastrointestinal: denies: Abdominal Pain Genitourinary: denies: Burning Physical Exam Vital Sings: Vital Signs Temperature 99 F 03/01/19 12:51 Pulse Rate 80 03/01/19 12:51 Respiratory Rate 20 03/01/19 12:51 Blood Pressure 124/59 L 03/01/19 12:51 O2 Sat by Pulse Oximetry (%) 97 03/01/19 10:16 Constitutional: Yes: Calm Eyes: Yes: EOM Intact HENT: Yes: Normocephalic Neck: Yes: Trachea Midline Cardiovascular: Yes: Tachycardia, S1, S2 Respiratory: Yes: Diminished, Rales, Rhonchi Gastrointestinal: Yes: Soft, Abdomen, Obese Renal/: Yes: WNL Musculoskeletal: Yes: WNL Extremities: Yes: WNL Edema: LLE: Trace, RLE: Trace Neurological: Yes: Alert ...Motor Strength: WNL Psychiatric: Yes: WNL Labs: 03/01/19 09:16 03/01/19 09:16 ABG Results ABG pH 7.42 (7.35-7.45) 03/01/19 08:00 ABG pCO2 at Pt Temp 43.9 mmHg (35-45) 03/01/19 08:00 ABG pO2 at Pt Temp 61.3 mmHg (80-105) L 03/01/19 08:00 ABG HCO3 27.9 mmol/L (22-27) H 03/01/19 08:00 ABG O2 Sat (Measured) 90.6 % (95-98) L 03/01/19 08:00 ABG O2 Content 12.9 % vol (15-22) L 03/01/19 08:00 ABG Base Excess 3.5 meq/l (-2-2) H 03/01/19 08:00 REST REVIEWED Imaging - Results Chest X-ray: Report Reviewed, Image Reviewed Cat Scan: Report Reviewed, Image Reviewed EKG: Report Reviewed, Image Reviewed Problem List - Problems (1) Asthma exacerbation Code(s): J45.901 - UNSPECIFIED ASTHMA WITH (ACUTE) EXACERBATION Qualifiers: Asthma severity: moderate Asthma persistence: persistent Qualified Code(s ): J45.41 - Moderate persistent asthma with (acute) exacerbation (2) CHF (congestive heart failure) Code(s): I50.9 - HEART FAILURE, UNSPECIFIED Qualifiers: (3) Dyspnea Code(s): R06.00 - DYSPNEA, UNSPECIFIED (4) Ground glass opacity present on imaging of lung Code(s): R91.8 - OTHER NONSPECIFIC ABNORMAL FINDING OF LUNG FIELD (5) Obesity Code(s): E66.9 - OBESITY, UNSPECIFIED Qualifiers: (6) HTN (hypertension) Code(s): I10 - ESSENTIAL (PRIMARY) HYPERTENSION Assessment/Plan ACUTE HYPOXEMIC RESP FAILURE LIKELY ON THE BASIS OF ACUTE CHF SUPERIMPOSED UPON COPD AGREE WITH TRIAL OF DIURETICS WILL CONTINUE O2 SUPPLEMENTATION/BRONCHODILATORS/ABS/STEROIDS DAILY WGTS/VTE PROPHYLAXSIS WILL FOLLOW Ross REIS MD
[2019-03-01] MEDS: methylPREDNISolone NA SUCC 40 MG/1 ML VIAL IVPUSH SCH ×2 (17:20→21:49)
[2019-03-02] MEDS ORDERED: ACETAMINOPHEN 325 MG TABLET (FP) PO ONE (01:38)
[2019-03-02] MEDS ORDERED: PT OWN MED DRAWER 7, Y5N ONE ×2 (03:01→03:07)
[2019-03-02] MEDS ORDERED: cefTRIAXone SODIUM 1 GM VIAL ONE (03:01)
[2019-03-02] MEDS ORDERED: DEXTROSE 5%-WATER - 50 ML IVPB ONE (03:01)
[2019-03-02] MEDS: methylPREDNISolone NA SUCC 40 MG/1 ML VIAL IVPUSH SCH ×4 (03:03→21:17)
[2019-03-02] MEDS: CEFTRIAXONE 1 GM in DEXTROSE 5%-WATER - 50 ML IVPB SCH (03:03)
[2019-03-02] MEDS ORDERED: AZITHROMYCIN IVPB 500 MG in DEXTROSE 5%-WATER - 250 ML IVPB SCH (04:00)
[2019-03-02] MEDS: AZITHROMYCIN IVPB 500 MG/250 ML BAG IVPB SCH (04:46)
[2019-03-02] MEDS: HEPARIN NA (PORCINE) 5,000 UNITS/ML 1ML VIAL SQ SCH ×3 (06:14→21:17)
[2019-03-02 07:28] LABS: BLOOD UREA NITROGEN 22.4 mg/dL (7-18); CALCIUM 8.9 mg/dL (8.5-10.1); CREATININE 0.8 mg/dL (0.55-1.3); MAGNESIUM 2.9 mg/dL (1.8-2.4); PHOSPHOROUS 4.2 mg/dL (2.5-4.9); POTASSIUM 4.4 mmol/L (3.5-5.1)
[2019-03-02] MEDS: ALBUTEROL SO4 2.5/IPRATROPIUM 0.5 INH SOL 3 ML VIAL.NEB. NEB SCH ×4 (07:30→19:40)
[2019-03-02 07:38] LABS: HEMATOCRIT 33.1 % (32.4-45.2); HEMOGLOBIN 10.2 GM/dL (10.7-15.3); MCH 23.2 pg (25.7-33.7); MCHC 30.8 g/dl (32.0-36.0); MEAN CELL VOLUME 75.1 fl (80-96); MEAN PLT VOLUME 8.9 fl (7.5-11.1); RDW 19.1 % (11.6-15.6); WHITE BLOOD COUNT 16.4 K/mm3 (4.0-10.0)
[2019-03-02 08:37] LABS: PLATELET COUNT 251 K/MM3 (134-434)
[2019-03-02] MEDS: PANTOPRAZOLE 40 MG TABLET (FP) PO SCH (09:53)
[2019-03-02] MEDS: LISINOPRIL 20 MG TABLET (FP) PO SCH (09:53)
[2019-03-02] MEDS: FUROSEMIDE 40 MG/4 ML INJECTABLE VIAL IVPUSH SCH (09:53)
--- NOTE | 2019-03-02 09:58 | PN ---
Progress Note (short form) - Note Progress Note: PULMONARY SUBJECTIVE IMPROVEMENT Constitutional: Yes: Calm Eyes: Yes: EOM Intact HENT: Yes: Normocephalic Neck: Yes: Trachea Midline Cardiovascular: Yes: Tachycardia, S1, S2 Respiratory: Yes: Diminished, Rales, Rhonchi Gastrointestinal: Yes: Soft, Abdomen, Obese Renal/: Yes: WNL Musculoskeletal: Yes: WNL Extremities: Yes: WNL Edema: LLE: Trace, RLE: Trace Neurological: Yes: Alert ...Motor Strength: WNL Psychiatric: Yes: WNL Labs: NOTED Chest X-ray: Report Reviewed, Image Reviewed Cat Scan: Report Reviewed, Image Reviewed EKG: Report Reviewed, Image Reviewed Problem List - Problems (1) Asthma exacerbation Code(s): J45.901 - UNSPECIFIED ASTHMA WITH (ACUTE) EXACERBATION Qualifiers: Asthma severity: moderate Asthma persistence: persistent Qualified Code(s ): J45.41 - Moderate persistent asthma with (acute) exacerbation (2) CHF (congestive heart failure) Code(s): I50.9 - HEART FAILURE, UNSPECIFIED Qualifiers: (3) Dyspnea Code(s): R06.00 - DYSPNEA, UNSPECIFIED (4) Ground glass opacity present on imaging of lung Code(s): R91.8 - OTHER NONSPECIFIC ABNORMAL FINDING OF LUNG FIELD (5) Obesity Code(s): E66.9 - OBESITY, UNSPECIFIED Qualifiers: (6) HTN (hypertension) Code(s): I10 - ESSENTIAL (PRIMARY) HYPERTENSION Assessment/Plan ACUTE HYPOXEMIC RESP FAILURE LIKELY ON THE BASIS OF ACUTE CHF SUPERIMPOSED UPON COPD TRIAL OF DIURETICS WILL CONTINUE O2 SUPPLEMENTATION/BRONCHODILATORS/ABS/STEROIDS DAILY WGTS/VTE RAY REIS MD Problem List - Problems (1) Asthma exacerbation Code(s): J45.901 - UNSPECIFIED ASTHMA WITH (ACUTE) EXACERBATION Qualifiers: Asthma severity: moderate Asthma persistence: persistent Qualified Code(s ): J45.41 - Moderate persistent asthma with (acute) exacerbation (2) CHF (congestive heart failure) Code(s): I50.9 - HEART FAILURE, UNSPECIFIED Qualifiers: (3) Dyspnea Code(s): R06.00 - DYSPNEA, UNSPECIFIED (4) Ground glass opacity present on imaging of lung Code(s): R91.8 - OTHER NONSPECIFIC ABNORMAL FINDING OF LUNG FIELD (5) Obesity Code(s): E66.9 - OBESITY, UNSPECIFIED Qualifiers: (6) HTN (hypertension) Code(s): I10 - ESSENTIAL (PRIMARY) HYPERTENSION
[2019-03-02 10:28] LABS: ANISOCYTOSIS 1+; MACROCYTOSIS 0; PLATELET ESTIMATE NORMAL
--- NOTE | 2019-03-02 11:03 | PN ---
Progress Note (short form) - Note Progress Note: s: sob improving but still feels tight. no chest pain, palps, dizziness Current Medications Albuterol Sulfate (Ventolin 0.083% Nebulizer Soln -) 1 amp NEB Q1H PRN PRN Reason: SHORT OF BREATH/WHEEZING Albuterol/Ipratropium (Duoneb -) 1 amp NEB RQID [facility] Last Admin: 03/02/19 07:30 Dose: 1 amp Furosemide (Lasix Injection -) 40 mg IVPUSH DAILY [facility] Last Admin: 03/02/19 09:53 Dose: 40 mg Heparin Sodium (Porcine) (Heparin -) 5,000 unit SQ TID [facility] Last Admin: 03/02/19 06:14 Dose: 5,000 unit Ceftriaxone Sodium 1 gm/ (Dextrose) 50 mls @ 100 mls/hr IVPB DAILY@0400 [facility] Last Admin: 03/02/19 03:03 Dose: 100 mls/hr Azithromycin (Zithromax 500mg Ivpb (Pre-Docked)) 500 mg in 250 mls @ 250 mls/ hr IVPB DAILY@0400 [facility] Last Admin: 03/02/19 04:46 Dose: 250 mls/hr Lisinopril (Prinivil) 20 mg PO DAILY [facility] Last Admin: 03/02/19 09:53 Dose: 20 mg Methylprednisolone Sodium Succinate (Solu-Medrol -) 40 mg IVPUSH Q6H-IV [facility] Last Admin: 03/02/19 09:53 Dose: 40 mg Pantoprazole Sodium (Protonix -) 40 mg PO DAILY [facility] Last Admin: 03/02/19 09:53 Dose: 40 mg pe: Vital Signs Period Temp Pulse Resp BP Sys/Gatica Pulse Ox Last 24 Hr 98.4 F-99 F 75-83 20-21 124-151/59-82 nad + jvd rrr s1s2 no mrg diff bl exp wheeze, rhonchi, nl eff aao3 no le e/c/c abd nt nd pos bs no jaundice diaphoresis pos dp pt no carotid bruits echo 02/2019: mild lve, sev dec lvef, global hk, g2dd, lae, nl rv, mod-sev mr, mild tr CXR: congestive and infiltrative findings ecg: sr, old lbbb a/p: 63 f hx lbbb, systolic chf (NICM), MR, asthma, htn, here with sob. sob, asthma: -current sxs seem related to asthma primarily; congestive findings on CXR and elevated JVD suggest component of CHF - cont lasix 40 mg IV daily, monitor daily weights, Cr, lytes -cont tx per pulm abnl ecg: -pt with chronic lbbb -recent cath with non obs cad chronic syst chf, MR: -pt with known sev dec lvef, NICM thought to be from MR. Had cath 08/2017 showing non obs cad. -vol stable off diuretics -has been noncompliant with cardiac f/u and treatment -cont lisinopril elevated trops: -borderline trop elevation with flat trend and nl ck, not c/w acs htn: -cont lisinopril
--- NOTE | 2019-03-02 11:48 | PN ---
Progress Note, Physician Chief Complaint: Ms Trevino says she is not feeling better. Still with shortness of breath and wheezing. No cp or n/v. - Current Medication List Current Medications: Active Medications Albuterol Sulfate (Ventolin 0.083% Nebulizer Soln -) 1 amp NEB Q1H PRN PRN Reason: SHORT OF BREATH/WHEEZING Albuterol/Ipratropium (Duoneb -) 1 amp NEB RQID [facility] Last Admin: 03/02/19 11:19 Dose: 1 amp Furosemide (Lasix Injection -) 40 mg IVPUSH DAILY [facility] Last Admin: 03/02/19 09:53 Dose: 40 mg Heparin Sodium (Porcine) (Heparin -) 5,000 unit SQ TID [facility] Last Admin: 03/02/19 06:14 Dose: 5,000 unit Ceftriaxone Sodium 1 gm/ (Dextrose) 50 mls @ 100 mls/hr IVPB DAILY@0400 [facility] Last Admin: 03/02/19 03:03 Dose: 100 mls/hr Azithromycin (Zithromax 500mg Ivpb (Pre-Docked)) 500 mg in 250 mls @ 250 mls/ hr IVPB DAILY@0400 [facility] Last Admin: 03/02/19 04:46 Dose: 250 mls/hr Lisinopril (Prinivil) 20 mg PO DAILY [facility] Last Admin: 03/02/19 09:53 Dose: 20 mg Methylprednisolone Sodium Succinate (Solu-Medrol -) 40 mg IVPUSH Q6H-IV [facility] Last Admin: 03/02/19 09:53 Dose: 40 mg Pantoprazole Sodium (Protonix -) 40 mg PO DAILY [facility] Last Admin: 03/02/19 09:53 Dose: 40 mg - Objective Vital Signs: Vital Signs Temperature 36.9 C 03/02/19 06:00 Pulse Rate 75 03/02/19 06:00 Respiratory Rate 21 H 03/01/19 19:51 Blood Pressure 141/73 03/02/19 06:00 O2 Sat by Pulse Oximetry (%) 97 03/01/19 10:16 Constitutional: Yes: No Distress, Calm, Obese Cardiovascular: Yes: Regular Rate and Rhythm. No: Gallop, Murmur, Rub Respiratory: Yes: Regular, On Nasal O2, Wheezes (diffuse, loud, coarse). No: CTA Bilaterally, Rales, Rhonchi Gastrointestinal: Yes: Normal Bowel Sounds, Soft. No: Distention, Tenderness Extremities: Yes: WNL Edema: No Labs: CBC, BMP 03/02/19 06:15 03/02/19 06:15 Problem List - Problems (1) PNA (pneumonia) Code(s): J18.9 - PNEUMONIA, UNSPECIFIED ORGANISM (2) Asthma exacerbation Code(s): J45.901 - UNSPECIFIED ASTHMA WITH (ACUTE) EXACERBATION Qualifiers: Asthma severity: moderate Asthma persistence: persistent Qualified Code(s ): J45.41 - Moderate persistent asthma with (acute) exacerbation (3) CHF (congestive heart failure) Code(s): I50.9 - HEART FAILURE, UNSPECIFIED Qualifiers: (4) Obesity Code(s): E66.9 - OBESITY, UNSPECIFIED Qualifiers: (5) HTN (hypertension) Code(s): I10 - ESSENTIAL (PRIMARY) HYPERTENSION Assessment/Plan (1) PNA (pneumonia) Assessment/Plan: -continue rocephin and zithromax day 2 -leukocytosis secondary to steroid use Code(s): J18.9 - PNEUMONIA, UNSPECIFIED ORGANISM (2) Asthma exacerbation Assessment/Plan: -not improved today -continue solumedrol, increased by pulmonary -continue bronchodilators -pulmonary following Code(s): J45.901 - UNSPECIFIED ASTHMA WITH (ACUTE) EXACERBATION Qualifiers: Asthma severity: moderate Asthma persistence: persistent Qualified Code(s ): J45.41 - Moderate persistent asthma with (acute) exacerbation (3) CHF (congestive heart failure) Assessment/Plan: -appreciate cardiology assistance -continue IV lasix Code(s): I50.9 - HEART FAILURE, UNSPECIFIED Qualifiers: (4) Obesity Assessment/Plan: -outpatient weight loss plan Code(s): E66.9 - OBESITY, UNSPECIFIED Qualifiers: (5) HTN (hypertension) Assessment/Plan: -continue lisinopril and lasix Code(s): I10 - ESSENTIAL (PRIMARY) HYPERTENSION
[2019-03-02] MEDS ORDERED: MELATONIN 5 MG TABLETS PO PRN (11:52)
--- NOTE | 2019-03-02 17:06 | EKG ---
Test Reason : Blood Pressure : / mmHG Vent. Rate : 095 BPM Atrial Rate : 095 BPM P-R Int : 170 ms QRS Dur : 152 ms QT Int : 374 ms P-R-T Axes : 072 006 127 degrees QTc Int : 469 ms NORMAL SINUS RHYTHM LEFT BUNDLE BRANCH BLOCK ABNORMAL ECG WHEN COMPARED WITH ECG OF 25-FEB-2019 13:10, NO SIGNIFICANT CHANGE WAS FOUND Confirmed by MD MAYLIN, JUDY ([id number]) on 03/02/2019 5:06:09 PM Referred By: Confirmed By:JUDY CARLISLE MD
[2019-03-02] MEDS: ACETAMINOPHEN 325 MG TABLET (FP) PO PRN (17:44)
[2019-03-02] MEDS ORDERED: DOCUSATE SODIUM 100 MG CAPSULE (FP) PO ONE (21:06)
[2019-03-03] MEDS ORDERED: DEXTROSE 5%-WATER - 50 ML IVPB ONE (01:53)
[2019-03-03] MEDS ORDERED: cefTRIAXone SODIUM 1 GM VIAL ONE (01:53)
[2019-03-03] MEDS: methylPREDNISolone NA SUCC 40 MG/1 ML VIAL IVPUSH SCH ×3 (02:02→17:29)
[2019-03-03] MEDS: guaiFENesin 200 MG/10 ML 10 ML UNIT-DOSE CUPS PO PRN ×3 (02:09→23:05)
[2019-03-03] MEDS: CEFTRIAXONE 1 GM in DEXTROSE 5%-WATER - 50 ML IVPB SCH (03:00)
[2019-03-03] MEDS: AZITHROMYCIN IVPB 500 MG/250 ML BAG IVPB SCH (04:05)
[2019-03-03] MEDS ORDERED: PT OWN MED DRAWER 7, Y5N ONE (04:56)
[2019-03-03] MEDS: HEPARIN NA (PORCINE) 5,000 UNITS/ML 1ML VIAL SQ SCH ×3 (05:34→21:17)
[2019-03-03] MEDS: ALBUTEROL SO4 2.5/IPRATROPIUM 0.5 INH SOL 3 ML VIAL.NEB. NEB SCH ×4 (07:35→21:09)
[2019-03-03 07:58] LABS: BASO % 0.1 % (0-2.0); HEMATOCRIT 33.8 % (32.4-45.2); HEMOGLOBIN 10.6 GM/dL (10.7-15.3); LYMPH % 4.3 % (8-40); MCH 23.3 pg (25.7-33.7); MCHC 31.3 g/dl (32.0-36.0); MEAN CELL VOLUME 74.5 fl (80-96); MEAN PLT VOLUME 8.5 fl (7.5-11.1); NEUT % 90.6 % (42.8-82.8); RBC 4.54 M/mm3 (3.60-5.2); WHITE BLOOD COUNT 17.2 K/mm3 (4.0-10.0)
[2019-03-03 08:26] LABS: BLOOD UREA NITROGEN 20.8 mg/dL (7-18); CALCIUM 9.1 mg/dL (8.5-10.1); CREATININE 0.8 mg/dL (0.55-1.3); MAGNESIUM 2.5 mg/dL (1.8-2.4); PHOSPHOROUS 3.7 mg/dL (2.5-4.9); POTASSIUM 4.6 mmol/L (3.5-5.1)
[2019-03-03] MEDS: PANTOPRAZOLE 40 MG TABLET (FP) PO SCH (09:52)
[2019-03-03] MEDS: FUROSEMIDE 40 MG/4 ML INJECTABLE VIAL IVPUSH SCH (09:52)
[2019-03-03] MEDS: LISINOPRIL 20 MG TABLET (FP) PO SCH (09:52)
--- NOTE | 2019-03-03 10:24 | PN ---
Progress Note, Physician Chief Complaint: sob History of Present Illness: sob much better. still coughing. no cp, no leg swelling - Current Medication List Current Medications: Active Medications Acetaminophen (Tylenol -) 650 mg PO Q6H PRN PRN Reason: PAIN SCALE 5-8 Last Admin: 03/02/19 17:44 Dose: 650 mg Albuterol Sulfate (Ventolin 0.083% Nebulizer Soln -) 1 amp NEB Q1H PRN PRN Reason: SHORT OF BREATH/WHEEZING Albuterol/Ipratropium (Duoneb -) 1 amp NEB RQID [facility] Last Admin: 03/02/19 19:40 Dose: 1 amp Furosemide (Lasix Injection -) 40 mg IVPUSH DAILY [facility] Last Admin: 03/03/19 09:52 Dose: 40 mg Guaifenesin (Robitussin -) 10 ml PO Q8H PRN PRN Reason: COUGH Last Admin: 03/03/19 02:09 Dose: 10 ml Heparin Sodium (Porcine) (Heparin -) 5,000 unit SQ TID [facility] Last Admin: 03/03/19 05:34 Dose: 5,000 unit Ceftriaxone Sodium 1 gm/ (Dextrose) 50 mls @ 100 mls/hr IVPB DAILY@0400 [facility] Last Admin: 03/03/19 03:00 Dose: 100 mls/hr Azithromycin (Zithromax 500mg Ivpb (Pre-Docked)) 500 mg in 250 mls @ 250 mls/ hr IVPB DAILY@0400 [facility] Last Admin: 03/03/19 04:05 Dose: 250 mls/hr Lisinopril (Prinivil) 20 mg PO DAILY [facility] Last Admin: 03/03/19 09:52 Dose: 20 mg Melatonin (Melatonin) 5 mg PO HS PRN PRN Reason: INSOMNIA Methylprednisolone Sodium Succinate (Solu-Medrol -) 40 mg IVPUSH Q6H-IV [facility] Last Admin: 03/03/19 09:52 Dose: 40 mg Pantoprazole Sodium (Protonix -) 40 mg PO DAILY [facility] Last Admin: 03/03/19 09:52 Dose: 40 mg Senna (Senna -) 2 tab PO HS PRN PRN Reason: CONSTIPATION - Objective Vital Signs: Vital Signs Temperature 98.4 F 03/03/19 08:36 Pulse Rate 83 03/03/19 08:36 Respiratory Rate 20 03/03/19 08:36 Blood Pressure 147/75 03/03/19 08:36 O2 Sat by Pulse Oximetry (%) 98 03/02/19 20:49 Constitutional: Yes: Well Nourished, No Distress, Calm Cardiovascular: Yes: Regular Rate and Rhythm, S1, S2. No: Gallop, Murmur Respiratory: Yes: Regular, Wheezes (soft). No: Accessory Muscle Use, Rales Extremities: No: Cold Edema: No Neurological: Yes: Alert, Oriented Psychiatric: No: Agitated Labs: CBC, BMP 03/03/19 07:25 03/03/19 07:25 Assessment/Plan echo 02/2019: mild lve, sev dec lvef, global hk, g2dd, lae, nl rv, mod-sev mr, mild tr CXR: congestive and infiltrative findings ecg: sr, old lbbb a/p: 63 f hx lbbb, systolic chf (NICM), MR, asthma, htn, here with sob. sob, asthma: -current sxs seem related to asthma primarily; congestive findings on CXR and elevated JVD suggest component of CHF -cont lasix 40 mg IV daily while remains on IV steroids -appears euvolemic currently -cont tx per pulm abnl ecg: -pt with chronic lbbb -recent cath with non obs cad chronic syst chf, MR: -pt with known sev dec lvef, NICM thought to be from MR. Had cath 08/2017 showing non obs cad. -vol stable off diuretics as outpatient--treating with iv lasix here, as above -has been noncompliant with cardiac f/u and treatment -cont lisinopril -no BB at present, given active wheezing and unknown severity of bronchospasm sx 's--needs outpt cardio f/u to consider low dose trial once she is stable from asthma standpoint -also ? needs ICD discussion depending on LVEF estimate, once meds are optimized --outpt f/u elevated trops: -borderline trop elevation with flat trend and nl ck, not c/w acs htn: -bp stable -cont lisinopril
--- NOTE | 2019-03-03 11:15 | PN ---
Progress Note (short form) - Note Progress Note: PULMONARY Breathing slightly better but still with chest tightness, nonproductive cough, wheezing. No fevers or chills. Vital Signs Period Temp Pulse Resp BP Sys/Gatica Pulse Ox Last 24 Hr 98.4 F-98.9 F 83-91 20-21 147-148/72-75 98 Gen: NAD at rest Heart: RRR Lung: scattered rhonchi, wheezes, rales Abd: soft, nontender Ext: no edema CBC, BMP 03/03/19 07:25 03/03/19 07:25 Active Medications Acetaminophen (Tylenol -) 650 mg PO Q6H PRN PRN Reason: PAIN SCALE 5-8 Last Admin: 03/02/19 17:44 Dose: 650 mg Albuterol Sulfate (Ventolin 0.083% Nebulizer Soln -) 1 amp NEB Q1H PRN PRN Reason: SHORT OF BREATH/WHEEZING Albuterol/Ipratropium (Duoneb -) 1 amp NEB RQID [facility] Last Admin: 03/02/19 19:40 Dose: 1 amp Furosemide (Lasix Injection -) 40 mg IVPUSH DAILY [facility] Last Admin: 03/03/19 09:52 Dose: 40 mg Guaifenesin (Robitussin -) 10 ml PO Q8H PRN PRN Reason: COUGH Last Admin: 03/03/19 10:59 Dose: 10 ml Heparin Sodium (Porcine) (Heparin -) 5,000 unit SQ TID [facility] Last Admin: 03/03/19 05:34 Dose: 5,000 unit Ceftriaxone Sodium 1 gm/ (Dextrose) 50 mls @ 100 mls/hr IVPB DAILY@0400 [facility] Last Admin: 03/03/19 03:00 Dose: 100 mls/hr Azithromycin (Zithromax 500mg Ivpb (Pre-Docked)) 500 mg in 250 mls @ 250 mls/ hr IVPB DAILY@0400 [facility] Last Admin: 03/03/19 04:05 Dose: 250 mls/hr Lisinopril (Prinivil) 20 mg PO DAILY [facility] Last Admin: 03/03/19 09:52 Dose: 20 mg Melatonin (Melatonin) 5 mg PO HS PRN PRN Reason: INSOMNIA Methylprednisolone Sodium Succinate (Solu-Medrol -) 40 mg IVPUSH Q6H-IV [facility] Last Admin: 03/03/19 09:52 Dose: 40 mg Pantoprazole Sodium (Protonix -) 40 mg PO DAILY [facility] Last Admin: 03/03/19 09:52 Dose: 40 mg Senna (Senna -) 2 tab PO HS PRN PRN Reason: CONSTIPATION A/P Acute Asthma Exacerbation Acute on Chronic Systolic Heart Failure Mitral Regurgitation HTN - will decrease medrol to q8h - inhaled bronchodilators standing and PRN - continue lasix - monitor urine output, creatinine - repeat CXR in AM - DVT prophylaxis
--- NOTE | 2019-03-03 11:29 | PN ---
Progress Note, Physician Chief Complaint: Ms Trevino says she is feeling better today. Still with shortness of breath and coughing but improving. Denies cp and n/v. - Current Medication List Current Medications: Active Medications Acetaminophen (Tylenol -) 650 mg PO Q6H PRN PRN Reason: PAIN SCALE 5-8 Last Admin: 03/02/19 17:44 Dose: 650 mg Albuterol Sulfate (Ventolin 0.083% Nebulizer Soln -) 1 amp NEB Q1H PRN PRN Reason: SHORT OF BREATH/WHEEZING Albuterol/Ipratropium (Duoneb -) 1 amp NEB RQID [facility] Last Admin: 03/03/19 11:24 Dose: 1 amp Furosemide (Lasix Injection -) 40 mg IVPUSH DAILY [facility] Last Admin: 03/03/19 09:52 Dose: 40 mg Guaifenesin (Robitussin -) 10 ml PO Q8H PRN PRN Reason: COUGH Last Admin: 03/03/19 10:59 Dose: 10 ml Heparin Sodium (Porcine) (Heparin -) 5,000 unit SQ TID [facility] Last Admin: 03/03/19 05:34 Dose: 5,000 unit Ceftriaxone Sodium 1 gm/ (Dextrose) 50 mls @ 100 mls/hr IVPB DAILY@0400 [facility] Last Admin: 03/03/19 03:00 Dose: 100 mls/hr Azithromycin (Zithromax 500mg Ivpb (Pre-Docked)) 500 mg in 250 mls @ 250 mls/ hr IVPB DAILY@0400 [facility] Last Admin: 03/03/19 04:05 Dose: 250 mls/hr Lisinopril (Prinivil) 20 mg PO DAILY [facility] Last Admin: 03/03/19 09:52 Dose: 20 mg Melatonin (Melatonin) 5 mg PO HS PRN PRN Reason: INSOMNIA Methylprednisolone Sodium Succinate (Solu-Medrol -) 40 mg IVPUSH Q8H-IV [facility] Pantoprazole Sodium (Protonix -) 40 mg PO DAILY [facility] Last Admin: 03/03/19 09:52 Dose: 40 mg Senna (Senna -) 2 tab PO HS PRN PRN Reason: CONSTIPATION - Objective Vital Signs: Vital Signs Temperature 36.9 C 03/03/19 08:36 Pulse Rate 83 03/03/19 08:36 Respiratory Rate 20 03/03/19 08:36 Blood Pressure 147/75 03/03/19 08:36 O2 Sat by Pulse Oximetry (%) 98 03/02/19 20:49 Constitutional: Yes: No Distress, Calm, Obese Cardiovascular: Yes: Regular Rate and Rhythm. No: Gallop, Murmur, Rub Respiratory: Yes: Regular, Rhonchi, Wheezes. No: CTA Bilaterally, Rales Gastrointestinal: Yes: Normal Bowel Sounds, Soft. No: Distention, Tenderness Extremities: Yes: WNL Edema: No Labs: CBC, BMP 03/03/19 07:25 03/03/19 07:25 Problem List - Problems (1) PNA (pneumonia) Code(s): J18.9 - PNEUMONIA, UNSPECIFIED ORGANISM (2) Asthma exacerbation Code(s): J45.901 - UNSPECIFIED ASTHMA WITH (ACUTE) EXACERBATION Qualifiers: Asthma severity: moderate Asthma persistence: persistent Qualified Code(s ): J45.41 - Moderate persistent asthma with (acute) exacerbation (3) CHF (congestive heart failure) Code(s): I50.9 - HEART FAILURE, UNSPECIFIED Qualifiers: (4) Obesity Code(s): E66.9 - OBESITY, UNSPECIFIED Qualifiers: (5) HTN (hypertension) Code(s): I10 - ESSENTIAL (PRIMARY) HYPERTENSION Assessment/Plan (1) PNA (pneumonia) Assessment/Plan: -continue rocephin and zithromax day 3 -leukocytosis secondary to steroid use Code(s): J18.9 - PNEUMONIA, UNSPECIFIED ORGANISM (2) Asthma exacerbation Assessment/Plan: -much improved today -continue solumedrol, decreased by pulmonary today -continue bronchodilators -pulmonary following and note reviewed Code(s): J45.901 - UNSPECIFIED ASTHMA WITH (ACUTE) EXACERBATION Qualifiers: Asthma severity: moderate Asthma persistence: persistent Qualified Code(s ): J45.41 - Moderate persistent asthma with (acute) exacerbation (3) CHF (congestive heart failure) Assessment/Plan: -appreciate cardiology assistance -continue IV lasix Code(s): I50.9 - HEART FAILURE, UNSPECIFIED Qualifiers: (4) Obesity Assessment/Plan: -outpatient weight loss plan Code(s): E66.9 - OBESITY, UNSPECIFIED Qualifiers: (5) HTN (hypertension) Assessment/Plan: -continue lisinopril and lasix -considering on high dose solumedrol unclear if HTN secondary to steroids/ hospital stay or needs med adjustment -will d/w cardiology since they follow as an outpatient if was controlled prior to admission Code(s): I10 - ESSENTIAL (PRIMARY) HYPERTENSION
[2019-03-03 14:26] LABS: PLATELET COUNT 350 K/MM3 (134-434)
[2019-03-03] MEDS: SENNOSIDES 8.6MG TABLET (FP) PO PRN (18:52)
[2019-03-04] MEDS ORDERED: cefTRIAXone SODIUM 1 GM VIAL ONE (02:28)
[2019-03-04] MEDS ORDERED: DEXTROSE 5%-WATER - 50 ML IVPB ONE (02:29)
[2019-03-04] MEDS: methylPREDNISolone NA SUCC 40 MG/1 ML VIAL IVPUSH SCH ×3 (02:55→17:21)
[2019-03-04] MEDS: CEFTRIAXONE 1 GM in DEXTROSE 5%-WATER - 50 ML IVPB SCH (02:59)
[2019-03-04] MEDS: AZITHROMYCIN IVPB 500 MG/250 ML BAG IVPB SCH (04:00)
[2019-03-04] MEDS: HEPARIN NA (PORCINE) 5,000 UNITS/ML 1ML VIAL SQ SCH ×3 (06:08→22:02)
[2019-03-04] MEDS: ALBUTEROL SO4 2.5/IPRATROPIUM 0.5 INH SOL 3 ML VIAL.NEB. NEB SCH ×4 (07:32→19:10)
[2019-03-04 07:48] LABS: BASO % 0.3 % (0-2.0); HEMATOCRIT 34.6 % (32.4-45.2); HEMOGLOBIN 10.8 GM/dL (10.7-15.3); LYMPH % 4.6 % (8-40); MCH 23.2 pg (25.7-33.7); MCHC 31.1 g/dl (32.0-36.0); MEAN CELL VOLUME 74.7 fl (80-96); MEAN PLT VOLUME 8.5 fl (7.5-11.1); MONO % 6.1 % (3.8-10.2); PLATELET COUNT 324 K/MM3 (134-434); RBC 4.63 M/mm3 (3.60-5.2); RDW 18.6 % (11.6-15.6); WHITE BLOOD COUNT 14.9 K/mm3 (4.0-10.0)
[2019-03-04 08:08] LABS: BLOOD UREA NITROGEN 23.1 mg/dL (7-18); CREATININE 0.8 mg/dL (0.55-1.3); MAGNESIUM 2.5 mg/dL (1.8-2.4); PHOSPHOROUS 3.3 mg/dL (2.5-4.9); POTASSIUM 4.4 mmol/L (3.5-5.1)
[2019-03-04] MEDS: PANTOPRAZOLE 40 MG TABLET (FP) PO SCH (09:34)
[2019-03-04] MEDS: LISINOPRIL 20 MG TABLET (FP) PO SCH (09:35)
[2019-03-04] MEDS: guaiFENesin 200 MG/10 ML 10 ML UNIT-DOSE CUPS PO PRN (09:35)
[2019-03-04] MEDS: FUROSEMIDE 40 MG/4 ML INJECTABLE VIAL IVPUSH SCH (09:35)
--- NOTE | 2019-03-04 11:09 | PN ---
Progress Note (short form) - Note Progress Note: PULMONARY Breathing continues to improve but still with nonproductive cough, wheezing. No fevers or chills. CXR showing improvement, some atelectasis at the bases. Vital Signs Period Temp Pulse Resp BP Sys/Gatica Pulse Ox Last 24 Hr 98.2 F-98.5 F 81-85 20-20 130-150/71-90 96 Gen: NAD at rest Heart: RRR Lung: scattered rhonchi, wheezes Abd: soft, nontender Ext: no edema CBC, BMP 03/04/19 06:17 03/04/19 06:17 Active Medications Acetaminophen (Tylenol -) 650 mg PO Q6H PRN PRN Reason: PAIN SCALE 5-8 Last Admin: 03/02/19 17:44 Dose: 650 mg Albuterol Sulfate (Ventolin 0.083% Nebulizer Soln -) 1 amp NEB Q1H PRN PRN Reason: SHORT OF BREATH/WHEEZING Albuterol/Ipratropium (Duoneb -) 1 amp NEB RQID [facility] Last Admin: 03/04/19 07:32 Dose: 1 amp Furosemide (Lasix Injection -) 40 mg IVPUSH DAILY [facility] Last Admin: 03/04/19 09:35 Dose: 40 mg Guaifenesin (Robitussin -) 10 ml PO Q8H PRN PRN Reason: COUGH Last Admin: 03/04/19 09:35 Dose: 10 ml Heparin Sodium (Porcine) (Heparin -) 5,000 unit SQ TID [facility] Last Admin: 03/04/19 06:08 Dose: 5,000 unit Ceftriaxone Sodium 1 gm/ (Dextrose) 50 mls @ 100 mls/hr IVPB DAILY@0400 [facility] Last Admin: 03/04/19 02:59 Dose: 100 mls/hr Azithromycin (Zithromax 500mg Ivpb (Pre-Docked)) 500 mg in 250 mls @ 250 mls/ hr IVPB DAILY@0400 [facility] Last Admin: 03/04/19 04:00 Dose: 250 mls/hr Lisinopril (Prinivil) 20 mg PO DAILY [facility] Last Admin: 03/04/19 09:35 Dose: 20 mg Melatonin (Melatonin) 5 mg PO HS PRN PRN Reason: INSOMNIA Methylprednisolone Sodium Succinate (Solu-Medrol -) 40 mg IVPUSH Q8H-IV [facility] Last Admin: 03/04/19 09:35 Dose: 40 mg Pantoprazole Sodium (Protonix -) 40 mg PO DAILY [facility] Last Admin: 03/04/19 09:34 Dose: 40 mg Senna (Senna -) 2 tab PO HS PRN PRN Reason: CONSTIPATION Last Admin: 03/03/19 18:52 Dose: 2 tab A/P Acute Asthma Exacerbation Acute on Chronic Systolic Heart Failure Mitral Regurgitation HTN - continue medrol q8h, can likely change steroids to PO prednisone 40mg daily in AM if continues to improve - inhaled bronchodilators standing and PRN - will order incentive spirometry - continue lasix - monitor urine output, creatinine - DVT prophylaxis
--- NOTE | 2019-03-04 11:44 | PN ---
Progress Note, Physician Chief Complaint: Ms Trevino says her breathing is improved. No cp, sob, n/v. - Current Medication List Current Medications: Active Medications Acetaminophen (Tylenol -) 650 mg PO Q6H PRN PRN Reason: PAIN SCALE 5-8 Last Admin: 03/02/19 17:44 Dose: 650 mg Albuterol Sulfate (Ventolin 0.083% Nebulizer Soln -) 1 amp NEB Q1H PRN PRN Reason: SHORT OF BREATH/WHEEZING Albuterol/Ipratropium (Duoneb -) 1 amp NEB RQID [facility] Last Admin: 03/04/19 07:32 Dose: 1 amp Furosemide (Lasix Injection -) 40 mg IVPUSH DAILY [facility] Last Admin: 03/04/19 09:35 Dose: 40 mg Guaifenesin (Robitussin -) 10 ml PO Q8H PRN PRN Reason: COUGH Last Admin: 03/04/19 09:35 Dose: 10 ml Heparin Sodium (Porcine) (Heparin -) 5,000 unit SQ TID [facility] Last Admin: 03/04/19 06:08 Dose: 5,000 unit Ceftriaxone Sodium 1 gm/ (Dextrose) 50 mls @ 100 mls/hr IVPB DAILY@0400 [facility] Last Admin: 03/04/19 02:59 Dose: 100 mls/hr Azithromycin (Zithromax 500mg Ivpb (Pre-Docked)) 500 mg in 250 mls @ 250 mls/ hr IVPB DAILY@0400 [facility] Last Admin: 03/04/19 04:00 Dose: 250 mls/hr Lisinopril (Prinivil) 20 mg PO DAILY [facility] Last Admin: 03/04/19 09:35 Dose: 20 mg Melatonin (Melatonin) 5 mg PO HS PRN PRN Reason: INSOMNIA Methylprednisolone Sodium Succinate (Solu-Medrol -) 40 mg IVPUSH Q8H-IV [facility] Last Admin: 03/04/19 09:35 Dose: 40 mg Pantoprazole Sodium (Protonix -) 40 mg PO DAILY [facility] Last Admin: 03/04/19 09:34 Dose: 40 mg Senna (Senna -) 2 tab PO HS PRN PRN Reason: CONSTIPATION Last Admin: 03/03/19 18:52 Dose: 2 tab - Objective Vital Signs: Vital Signs Temperature 36.9 C 03/04/19 05:50 Pulse Rate 81 03/04/19 05:50 Respiratory Rate 20 03/04/19 05:50 Blood Pressure 150/90 03/04/19 05:50 O2 Sat by Pulse Oximetry (%) 96 03/03/19 21:00 Constitutional: Yes: No Distress, Calm, Obese Cardiovascular: Yes: Regular Rate and Rhythm. No: Gallop, Murmur, Rub Respiratory: Yes: Regular, Wheezes (very slight today). No: CTA Bilaterally, On Nasal O2, Rales, Rhonchi Gastrointestinal: Yes: Normal Bowel Sounds, Soft. No: Distention, Tenderness Extremities: Yes: WNL Edema: No Labs: CBC, BMP 03/04/19 06:17 03/04/19 06:17 Problem List - Problems (1) PNA (pneumonia) Code(s): J18.9 - PNEUMONIA, UNSPECIFIED ORGANISM (2) Asthma exacerbation Code(s): J45.901 - UNSPECIFIED ASTHMA WITH (ACUTE) EXACERBATION Qualifiers: Asthma severity: moderate Asthma persistence: persistent Qualified Code(s ): J45.41 - Moderate persistent asthma with (acute) exacerbation (3) CHF (congestive heart failure) Code(s): I50.9 - HEART FAILURE, UNSPECIFIED Qualifiers: (4) Obesity Code(s): E66.9 - OBESITY, UNSPECIFIED Qualifiers: (5) HTN (hypertension) Code(s): I10 - ESSENTIAL (PRIMARY) HYPERTENSION Assessment/Plan (1) PNA (pneumonia) Assessment/Plan: -continue rocephin and zithromax day 4 -leukocytosis secondary to steroid use and improving Code(s): J18.9 - PNEUMONIA, UNSPECIFIED ORGANISM (2) Asthma exacerbation Assessment/Plan: -continues to improve -lung exam almost normal -case d/w Dr Montgomery, agree with IV steroids today and change to prednisone tomorrow -since failed outpatient therapy first time, will monitor on prednisone for 24 hours prior to discharge Code(s): J45.901 - UNSPECIFIED ASTHMA WITH (ACUTE) EXACERBATION Qualifiers: Asthma severity: moderate Asthma persistence: persistent Qualified Code(s ): J45.41 - Moderate persistent asthma with (acute) exacerbation (3) CHF (congestive heart failure) Assessment/Plan: -appreciate cardiology assistance -continue IV lasix Code(s): I50.9 - HEART FAILURE, UNSPECIFIED Qualifiers: (4) Obesity Assessment/Plan: -outpatient weight loss plan Code(s): E66.9 - OBESITY, UNSPECIFIED Qualifiers: (5) HTN (hypertension) Assessment/Plan: -continue lisinopril and lasix -considering on high dose solumedrol unclear if HTN secondary to steroids/ hospital stay or needs med adjustment -monitor Code(s): I10 - ESSENTIAL (PRIMARY) HYPERTENSION
--- NOTE | 2019-03-04 15:01 | PN ---
Progress Note (short form) - Note Progress Note: s:sob much better. still coughing. no cp, no leg swelling Current Medications Generic Name Dose Route Start Last Admin Trade Name Freq PRN Reason Stop Dose Admin Acetaminophen 650 mg 03/02/19 17:40 03/02/19 17:44 Tylenol - PO 650 mg Q6H PRN Administration PAIN SCALE 5-8 Albuterol Sulfate 1 amp 03/01/19 12:35 03/04/19 13:24 Ventolin 0.083% Nebulizer Soln - NEB 1 amp Q1H PRN Administration SHORT OF BREATH/WHEEZING Albuterol/Ipratropium 1 amp 03/01/19 08:00 03/04/19 11:20 Duoneb - NEB Not Given RQID [facility] Furosemide 40 mg 03/02/19 10:00 03/04/19 09:35 Lasix Injection - IVPUSH 40 mg DAILY [facility] Administration Guaifenesin 10 ml 03/02/19 21:05 03/04/19 09:35 Robitussin - PO 10 ml Q8H PRN Administration COUGH Heparin Sodium (Porcine) 5,000 unit 03/01/19 07:15 03/04/19 13:25 Heparin - SQ Not Given TID [facility] Ceftriaxone Sodium 1 gm/ 50 mls @ 100 mls/hr 03/02/19 04:00 03/04/19 02:59 Dextrose IVPB 100 mls/hr DAILY@0400 [facility] Administration Azithromycin 500 mg in 250 mls @ 250 mls/hr 03/02/19 04:00 03/04/19 04:00 Zithromax 500mg Ivpb (Pre-Docked) IVPB 250 mls/hr DAILY@0400 [facility] Administration Lisinopril 20 mg 03/01/19 10:00 03/04/19 09:35 Prinivil PO 20 mg DAILY [facility] Administration Melatonin 5 mg 03/02/19 11:52 Melatonin PO HS PRN INSOMNIA Methylprednisolone Sodium Succinate 40 mg 03/03/19 18:00 03/04/19 09:35 Solu-Medrol - IVPUSH 40 mg Q8H-IV [facility] Administration Pantoprazole Sodium 40 mg 03/01/19 10:00 03/04/19 09:34 Protonix - PO 40 mg DAILY [facility] Administration Senna 2 tab 03/02/19 21:06 03/03/19 18:52 Senna - PO 2 tab HS PRN Administration CONSTIPATION - Objective Vital Signs: Vital Signs Vital Signs Period Temp Pulse Resp BP Sys/Gatica Pulse Ox Last 24 Hr 97.8 F-98.5 F 81-85 18-20 130-150/62-90 94-96 Constitutional: Yes: Well Nourished, No Distress, Calm Cardiovascular: Yes: Regular Rate and Rhythm, S1, S2. No: Gallop, Murmur Respiratory: Yes: Regular, Wheezes (soft). No: Accessory Muscle Use, Rales Extremities: No: Cold Edema: No Neurological: Yes: Alert, Oriented Psychiatric: No: Agitated no jaundice diaphoresis Labs: Laboratory Last Values WBC 14.9 K/mm3 (4.0-10.0) H 03/04/19 06:17 RBC 4.63 M/mm3 (3.60-5.2) 03/04/19 06:17 Hgb 10.8 GM/dL (10.7-15.3) 03/04/19 06:17 Hct 34.6 % (32.4-45.2) 03/04/19 06:17 MCV 74.7 fl (80-96) L 03/04/19 06:17 MCH 23.2 pg (25.7-33.7) L 03/04/19 06:17 MCHC 31.1 g/dl (32.0-36.0) L 03/04/19 06:17 RDW 18.6 % (11.6-15.6) H 03/04/19 06:17 Plt Count 324 K/MM3 (134-434) 03/04/19 06:17 MPV 8.5 fl (7.5-11.1) 03/04/19 06:17 Absolute Neuts (auto) 13.3 K/mm3 (1.5-8.0) H 03/04/19 06:17 Neutrophils % 89.0 % (42.8-82.8) H 03/04/19 06:17 Neutrophils % (Manual) 90.0 % (42.8-82.8) H 03/02/19 06:15 Band Neutrophils % 0.0 % 03/02/19 06:15 Lymphocytes % 4.6 % (8-40) L 03/04/19 06:17 Lymphocytes % (Manual) 3.0 % (8-40) L D 03/02/19 06:15 Monocytes % 6.1 % (3.8-10.2) 03/04/19 06:17 Monocytes % (Manual) 7 % (3.8-10.2) D 03/02/19 06:15 Eosinophils % 0.0 % (0-4.5) 03/04/19 06:17 Eosinophils % (Manual) 0.0 % (0-4.5) 03/02/19 06:15 Basophils % 0.3 % (0-2.0) 03/04/19 06:17 Basophils % (Manual) 0.0 % (0-2.0) 03/02/19 06:15 Myelocytes % (Man) 0 % (0-2) 03/02/19 06:15 Promyelocytes % (Man) 0 % (0-2) 03/02/19 06:15 Blast Cells % (Manual) 0 % (0-0) 03/02/19 06:15 Nucleated RBC % 0 % (0-0) 03/04/19 06:17 Metamyelocytes 0 % (0-2) 03/02/19 06:15 Hypochromia 0 03/02/19 06:15 Platelet Estimate Normal 03/02/19 06:15 Polychromasia 1+ 03/02/19 06:15 Poikilocytosis 1+ 03/02/19 06:15 Anisocytosis 1+ 03/02/19 06:15 Microcytosis 1+ 03/02/19 06:15 Macrocytosis 0 03/02/19 06:15 Ovalocytes 1+ 03/01/19 09:16 Anticoagulation Therapy No Result Required. 03/01/19 08:00 Puncture Site Right radial 03/01/19 08:00 ABG pH 7.42 (7.35-7.45) 03/01/19 08:00 ABG pCO2 at Pt Temp 43.9 mmHg (35-45) 03/01/19 08:00 ABG pO2 at Pt Temp 61.3 mmHg (80-105) L 03/01/19 08:00 ABG HCO3 27.9 mmol/L (22-27) H 03/01/19 08:00 ABG O2 Sat (Measured) 90.6 % (95-98) L 03/01/19 08:00 ABG O2 Content 12.9 % vol (15-22) L 03/01/19 08:00 ABG Base Excess 3.5 meq/l (-2-2) H 03/01/19 08:00 Cholo Test Positive 03/01/19 08:00 VBG pH 7.44 (7.31-7.41) H 03/01/19 03:56 POC VBG pCO2 44.3 mmHg (41-51) 03/01/19 03:56 POC VBG pO2 28.0 mmHg (30-40) L 03/01/19 03:56 VBG HCO3 29.5 mmol/L (23-29) H 03/01/19 03:56 VBG O2 Sat (Jeff) 46.2 % (70-80) L 03/01/19 03:56 VBG Base Excess 5.2 meq/l (-2-2) H 03/01/19 03:56 O2 Delivery Device No Result Required. 03/01/19 08:00 Oxygen Flow Rate No 03/01/19 08:00 Vent Mode No Result Required. 03/01/19 08:00 Vent Rate No Result Required. 03/01/19 08:00 Mechanical Rate No Result Required. 03/01/19 08:00 Pressure Support Vent No Result Required. 03/01/19 08:00 Sodium 135 mmol/L (136-145) L 03/04/19 06:17 Potassium 4.4 mmol/L (3.5-5.1) 03/04/19 06:17 Chloride 96 mmol/L (98-107) L 03/04/19 06:17 Carbon Dioxide 32 mmol/L (21-32) 03/04/19 06:17 Anion Gap 7 MMOL/L (8-16) L 03/04/19 06:17 BUN 23.1 mg/dL (7-18) H 03/04/19 06:17 Creatinine 0.8 mg/dL (0.55-1.3) 03/04/19 06:17 Est GFR (CKD-EPI)AfAm 91.58 03/04/19 06:17 Est GFR (CKD-EPI)NonAf 79.01 03/04/19 06:17 Random Glucose 276 mg/dL (74-106) H 03/04/19 06:17 Calcium 9.0 mg/dL (8.5-10.1) 03/04/19 06:17 Phosphorus 3.3 mg/dL (2.5-4.9) 03/04/19 06:17 Magnesium 2.5 mg/dL (1.8-2.4) H 03/04/19 06:17 Total Bilirubin 0.8 mg/dL (0.2-1) 03/01/19 03:56 AST 20 U/L (15-37) 03/01/19 03:56 ALT 50 U/L (13-61) 03/01/19 03:56 Alkaline Phosphatase 90 U/L (45-117) 03/01/19 03:56 Troponin I 0.07 ng/ml (0.00-0.05) H 03/01/19 09:16 B-Natriuretic Peptide 5782.2 pg/ml (5-125) H 03/01/19 03:56 Total Protein 7.8 g/dl (6.4-8.2) 03/01/19 03:56 Albumin 4.0 g/dl (3.4-5.0) 03/01/19 03:56 Assessment/Plan echo 02/2019: mild lve, sev dec lvef, global hk, g2dd, lae, nl rv, mod-sev mr, mild tr CXR: congestive and infiltrative findings ecg: sr, old lbbb a/p: 63 f hx lbbb, systolic chf (NICM), MR, asthma, htn, here with sob. sob, asthma: -current sxs seem related to asthma primarily; congestive findings on CXR and elevated JVD suggest component of CHF -cont lasix 40 mg IV daily while remains on IV steroids -appears euvolemic currently -cont tx per pulm abnl ecg: -pt with chronic lbbb -recent cath with non obs cad chronic syst chf, MR: -pt with known sev dec lvef, NICM thought to be from MR. Had cath 08/2017 showing non obs cad. -vol stable off diuretics as outpatient--treating with iv lasix here, as above -has been noncompliant with cardiac f/u and treatment -cont lisinopril -no BB at present, given active wheezing and unknown severity of bronchospasm sx 's--needs outpt cardio f/u to consider low dose trial once she is stable from asthma standpoint -also ? needs ICD discussion depending on LVEF estimate, once meds are optimized --outpt f/u elevated trops: -borderline trop elevation with flat trend and nl ck, not c/w acs htn: -bp stable -cont lisinopril
[2019-03-04] MEDS: SENNOSIDES 8.6MG TABLET (FP) PO PRN (22:02)
[2019-03-05] MEDS: methylPREDNISolone NA SUCC 40 MG/1 ML VIAL IVPUSH SCH ×3 (02:31→18:15)
[2019-03-05] MEDS ORDERED: cefTRIAXone SODIUM 1 GM VIAL ONE (04:02)
[2019-03-05] MEDS ORDERED: DEXTROSE 5%-WATER - 50 ML IVPB ONE (04:02)
[2019-03-05] MEDS: CEFTRIAXONE 1 GM in DEXTROSE 5%-WATER - 50 ML IVPB SCH (04:13)
[2019-03-05] MEDS: AZITHROMYCIN IVPB 500 MG/250 ML BAG IVPB SCH (04:56)
[2019-03-05] MEDS: HEPARIN NA (PORCINE) 5,000 UNITS/ML 1ML VIAL SQ SCH ×3 (06:22→22:42)
[2019-03-05] MEDS: guaiFENesin 200 MG/10 ML 10 ML UNIT-DOSE CUPS PO PRN (06:28)
[2019-03-05] MEDS: ALBUTEROL SO4 2.5/IPRATROPIUM 0.5 INH SOL 3 ML VIAL.NEB. NEB SCH ×4 (07:43→21:07)
[2019-03-05 08:06] LABS: BASO % 0.2 % (0-2.0); HEMATOCRIT 34.4 % (32.4-45.2); HEMOGLOBIN 10.9 GM/dL (10.7-15.3); LYMPH % 5.6 % (8-40); MCH 23.6 pg (25.7-33.7); MCHC 31.8 g/dl (32.0-36.0); MEAN CELL VOLUME 74.1 fl (80-96); MEAN PLT VOLUME 8.2 fl (7.5-11.1); MONO % 7.3 % (3.8-10.2); NEUT % 86.9 % (42.8-82.8); PLATELET COUNT 320 K/MM3 (134-434); RBC 4.64 M/mm3 (3.60-5.2)
[2019-03-05 08:31] LABS: BLOOD UREA NITROGEN 20.4 mg/dL (7-18); CREATININE 0.8 mg/dL (0.55-1.3); MAGNESIUM 2.6 mg/dL (1.8-2.4); PHOSPHOROUS 3.6 mg/dL (2.5-4.9); POTASSIUM 4.3 mmol/L (3.5-5.1)
[2019-03-05] MEDS: LISINOPRIL 20 MG TABLET (FP) PO SCH (09:58)
[2019-03-05] MEDS: PANTOPRAZOLE 40 MG TABLET (FP) PO SCH (09:58)
[2019-03-05] MEDS: FUROSEMIDE 40 MG/4 ML INJECTABLE VIAL IVPUSH SCH (09:58)
--- NOTE | 2019-03-05 11:35 | PN ---
Progress Note, Physician Chief Complaint: Ms Trevino says her breathing continues to improve, says it is harder to cough up mucous. Denies cp or n/v. Complains of constipation today. - Current Medication List Current Medications: Active Medications Acetaminophen (Tylenol -) 650 mg PO Q6H PRN PRN Reason: PAIN SCALE 5-8 Last Admin: 03/02/19 17:44 Dose: 650 mg Albuterol Sulfate (Ventolin 0.083% Nebulizer Soln -) 1 amp NEB Q1H PRN PRN Reason: SHORT OF BREATH/WHEEZING Last Admin: 03/04/19 13:24 Dose: 1 amp Albuterol/Ipratropium (Duoneb -) 1 amp NEB RQID [facility] Last Admin: 03/05/19 11:07 Dose: 1 amp Docusate Sodium (Colace -) 100 mg PO BID [facility] Furosemide (Lasix Injection -) 40 mg IVPUSH DAILY [facility] Last Admin: 03/05/19 09:58 Dose: 40 mg Guaifenesin (Robitussin -) 10 ml PO Q8H PRN PRN Reason: COUGH Last Admin: 03/05/19 06:28 Dose: 10 ml Heparin Sodium (Porcine) (Heparin -) 5,000 unit SQ TID [facility] Last Admin: 03/05/19 06:22 Dose: 5,000 unit Ceftriaxone Sodium 1 gm/ (Dextrose) 50 mls @ 100 mls/hr IVPB DAILY@0400 [facility] Last Admin: 03/05/19 04:13 Dose: 100 mls/hr Lisinopril (Prinivil) 20 mg PO DAILY [facility] Last Admin: 03/05/19 09:58 Dose: 20 mg Melatonin (Melatonin) 5 mg PO HS PRN PRN Reason: INSOMNIA Methylprednisolone Sodium Succinate (Solu-Medrol -) 40 mg IVPUSH Q8H-IV [facility] Last Admin: 03/05/19 09:58 Dose: 40 mg Pantoprazole Sodium (Protonix -) 40 mg PO DAILY [facility] Last Admin: 03/05/19 09:58 Dose: 40 mg Polyethylene Glycol (Miralax (For Daily Use) -) 17 gm PO BID [facility] Senna (Senna -) 2 tab PO HS PRN PRN Reason: CONSTIPATION Last Admin: 03/04/19 22:02 Dose: 2 tab - Objective Vital Signs: Vital Signs Temperature 36.8 C 03/05/19 10:00 Pulse Rate 81 03/05/19 10:00 Respiratory Rate 18 03/05/19 10:00 Blood Pressure 122/61 03/05/19 10:00 O2 Sat by Pulse Oximetry (%) 95 03/05/19 10:23 Constitutional: Yes: No Distress, Calm, Obese Cardiovascular: Yes: Regular Rate and Rhythm. No: Gallop, Murmur, Rub Respiratory: Yes: Regular, Rhonchi (slight), Wheezes (slight). No: CTA Bilaterally, On Nasal O2, Rales Gastrointestinal: Yes: Normal Bowel Sounds, Soft. No: Distention, Tenderness Extremities: Yes: WNL Edema: No Labs: CBC, BMP 03/05/19 07:20 03/05/19 07:20 Problem List - Problems (1) PNA (pneumonia) Code(s): J18.9 - PNEUMONIA, UNSPECIFIED ORGANISM (2) Asthma exacerbation Code(s): J45.901 - UNSPECIFIED ASTHMA WITH (ACUTE) EXACERBATION Qualifiers: Asthma severity: moderate Asthma persistence: persistent Qualified Code(s ): J45.41 - Moderate persistent asthma with (acute) exacerbation (3) CHF (congestive heart failure) Code(s): I50.9 - HEART FAILURE, UNSPECIFIED Qualifiers: (4) Obesity Code(s): E66.9 - OBESITY, UNSPECIFIED Qualifiers: (5) HTN (hypertension) Code(s): I10 - ESSENTIAL (PRIMARY) HYPERTENSION (6) Constipation Code(s): K59.00 - CONSTIPATION, UNSPECIFIED Assessment/Plan (1) PNA (pneumonia) Assessment/Plan: -continue rocephin and zithromax day 5 -stop zithromax today -continue rocephin -on discharge can finish with augmentin Code(s): J18.9 - PNEUMONIA, UNSPECIFIED ORGANISM (2) Asthma exacerbation Assessment/Plan: -continues to improve -lung exam almost normal -received IV solumedrol today -will continue -change to prednisone tomorrow -if tolerates, can discharge on Sunday Code(s): J45.901 - UNSPECIFIED ASTHMA WITH (ACUTE) EXACERBATION Qualifiers: Asthma severity: moderate Asthma persistence: persistent Qualified Code(s ): J45.41 - Moderate persistent asthma with (acute) exacerbation (3) CHF (congestive heart failure) Assessment/Plan: -appreciate cardiology assistance -will change to po tomorrow Code(s): I50.9 - HEART FAILURE, UNSPECIFIED Qualifiers: (4) Obesity Assessment/Plan: -outpatient weight loss plan Code(s): E66.9 - OBESITY, UNSPECIFIED Qualifiers: (5) HTN (hypertension) Assessment/Plan: -continue lisinopril and lasix -considering on high dose solumedrol unclear if HTN secondary to steroids/ hospital stay or needs med adjustment -monitor Code(s): I10 - ESSENTIAL (PRIMARY) HYPERTENSION
[2019-03-05] MEDS: POLYETHYLENE GLYCOL 3350 119 GM BTL PO SCH ×2 (12:09→22:42)
[2019-03-05] MEDS: DOCUSATE SODIUM 100 MG CAPSULE (FP) PO SCH ×2 (12:09→22:42)
--- NOTE | 2019-03-05 12:56 | PN ---
Progress Note, Physician History of Present Illness: pulmonary alert,feeling better,less dyspneic - Current Medication List Current Medications: Active Medications Acetaminophen (Tylenol -) 650 mg PO Q6H PRN PRN Reason: PAIN SCALE 5-8 Last Admin: 03/02/19 17:44 Dose: 650 mg Albuterol Sulfate (Ventolin 0.083% Nebulizer Soln -) 1 amp NEB Q1H PRN PRN Reason: SHORT OF BREATH/WHEEZING Last Admin: 03/04/19 13:24 Dose: 1 amp Albuterol/Ipratropium (Duoneb -) 1 amp NEB RQID [facility] Last Admin: 03/05/19 11:07 Dose: 1 amp Docusate Sodium (Colace -) 100 mg PO BID [facility] Last Admin: 03/05/19 12:09 Dose: 100 mg Guaifenesin (Robitussin -) 10 ml PO Q8H PRN PRN Reason: COUGH Last Admin: 03/05/19 06:28 Dose: 10 ml Heparin Sodium (Porcine) (Heparin -) 5,000 unit SQ TID [facility] Last Admin: 03/05/19 06:22 Dose: 5,000 unit Ceftriaxone Sodium 1 gm/ (Dextrose) 50 mls @ 100 mls/hr IVPB DAILY@0400 [facility] Last Admin: 03/05/19 04:13 Dose: 100 mls/hr Lisinopril (Prinivil) 20 mg PO DAILY [facility] Last Admin: 03/05/19 09:58 Dose: 20 mg Melatonin (Melatonin) 5 mg PO HS PRN PRN Reason: INSOMNIA Methylprednisolone Sodium Succinate (Solu-Medrol -) 40 mg IVPUSH Q8H-IV [facility] Stop: 03/05/19 23:59 Last Admin: 03/05/19 09:58 Dose: 40 mg Pantoprazole Sodium (Protonix -) 40 mg PO DAILY [facility] Last Admin: 03/05/19 09:58 Dose: 40 mg Polyethylene Glycol (Miralax (For Daily Use) -) 17 gm PO BID [facility] Last Admin: 03/05/19 12:09 Dose: 17 gm Prednisone (Deltasone -) 60 mg PO DAILY [facility] Senna (Senna -) 2 tab PO HS PRN PRN Reason: CONSTIPATION Last Admin: 03/04/19 22:02 Dose: 2 tab - Objective Vital Signs: Vital Signs Temperature 98.2 F 03/05/19 10:00 Pulse Rate 81 03/05/19 10:00 Respiratory Rate 18 03/05/19 10:00 Blood Pressure 122/61 03/05/19 10:00 O2 Sat by Pulse Oximetry (%) 95 03/05/19 10:23 Constitutional: Yes: Well Nourished, Calm, Pallor HENT: Yes: WNL Neck: Yes: WNL Cardiovascular: Yes: Regular Rate and Rhythm, S1, S2 Respiratory: Yes: Wheezes (scattered wheezes) Gastrointestinal: Yes: Normal Bowel Sounds, Soft Extremities: Yes: WNL Edema: No Labs: CBC, BMP 03/05/19 07:20 03/05/19 07:20 Problem List - Problems (1) Asthma exacerbation Code(s): J45.901 - UNSPECIFIED ASTHMA WITH (ACUTE) EXACERBATION Qualifiers: Asthma severity: moderate Asthma persistence: persistent Qualified Code(s ): J45.41 - Moderate persistent asthma with (acute) exacerbation (2) CHF (congestive heart failure) Code(s): I50.9 - HEART FAILURE, UNSPECIFIED Qualifiers: (3) Dyspnea Code(s): R06.00 - DYSPNEA, UNSPECIFIED (4) Obesity Code(s): E66.9 - OBESITY, UNSPECIFIED Qualifiers: (5) Shortness of breath Code(s): R06.02 - SHORTNESS OF BREATH (6) Chest tightness Code(s): R07.89 - OTHER CHEST PAIN (7) HTN (hypertension) Code(s): I10 - ESSENTIAL (PRIMARY) HYPERTENSION Assessment/Plan A/P Acute Asthma Exacerbation improving Acute on Chronic Systolic Heart Failure Mitral Regurgitation HTN - prednisone 60mg daily - inhaled bronchodilators standing and PRN - incentive spirometry - lasix - monitor urine output, creatinine - DVT prophylaxis DR CASTILLO
--- NOTE | 2019-03-05 14:21 | PN ---
Progress Note, Physician Chief Complaint: no new complaints Feeling "better" History of Present Illness: PLAN to switch to PO Lasix tomorrow - Current Medication List Current Medications: Active Medications Acetaminophen (Tylenol -) 650 mg PO Q6H PRN PRN Reason: PAIN SCALE 5-8 Last Admin: 03/02/19 17:44 Dose: 650 mg Albuterol Sulfate (Ventolin 0.083% Nebulizer Soln -) 1 amp NEB Q1H PRN PRN Reason: SHORT OF BREATH/WHEEZING Last Admin: 03/04/19 13:24 Dose: 1 amp Albuterol/Ipratropium (Duoneb -) 1 amp NEB RQID [facility] Last Admin: 03/05/19 11:07 Dose: 1 amp Docusate Sodium (Colace -) 100 mg PO BID [facility] Last Admin: 03/05/19 12:09 Dose: 100 mg Guaifenesin (Robitussin -) 10 ml PO Q8H PRN PRN Reason: COUGH Last Admin: 03/05/19 06:28 Dose: 10 ml Heparin Sodium (Porcine) (Heparin -) 5,000 unit SQ TID [facility] Last Admin: 03/05/19 06:22 Dose: 5,000 unit Ceftriaxone Sodium 1 gm/ (Dextrose) 50 mls @ 100 mls/hr IVPB DAILY@0400 [facility] Last Admin: 03/05/19 04:13 Dose: 100 mls/hr Lisinopril (Prinivil) 20 mg PO DAILY [facility] Last Admin: 03/05/19 09:58 Dose: 20 mg Melatonin (Melatonin) 5 mg PO HS PRN PRN Reason: INSOMNIA Methylprednisolone Sodium Succinate (Solu-Medrol -) 40 mg IVPUSH Q8H-IV [facility] Stop: 03/05/19 23:59 Last Admin: 03/05/19 09:58 Dose: 40 mg Pantoprazole Sodium (Protonix -) 40 mg PO DAILY [facility] Last Admin: 03/05/19 09:58 Dose: 40 mg Polyethylene Glycol (Miralax (For Daily Use) -) 17 gm PO BID [facility] Last Admin: 03/05/19 12:09 Dose: 17 gm Prednisone (Deltasone -) 60 mg PO DAILY [facility] Senna (Senna -) 2 tab PO HS PRN PRN Reason: CONSTIPATION Last Admin: 03/04/19 22:02 Dose: 2 tab - Objective Vital Signs: Vital Signs Temperature 98.2 F 03/05/19 10:00 Pulse Rate 81 03/05/19 10:00 Respiratory Rate 18 03/05/19 10:00 Blood Pressure 122/61 03/05/19 10:00 O2 Sat by Pulse Oximetry (%) 95 03/05/19 10:23 Constitutional: Yes: No Distress Cardiovascular: Yes: Regular Rate and Rhythm Respiratory: Yes: Wheezes Gastrointestinal: Yes: Soft, Abdomen, Obese Edema: No (warm, well perfused) Neurological: Yes: Alert, Oriented Labs: CBC, BMP 03/05/19 07:20 03/05/19 07:20 Assessment/Plan Assessment/Plan echo 02/2019: mild lve, sev dec lvef, global hk, g2dd, lae, nl rv, mod-sev mr, mild tr CXR: congestive and infiltrative findings ecg: sr, old lbbb A/P: 63 f hx lbbb, systolic chf (NICM), MR, asthma, htn, here with sob. SOB, asthma: -current sxs seem related to asthma primarily; congestive findings on CXR and elevated JVD suggest component of CHF -received IV Lasix this AM, plan to switch to PO tomorrow -appears euvolemic currently -cont tx per pulm Abnl ecg: -pt with chronic lbbb -recent cath with non obs cad Chronic syst chf, MR: -pt with known sev dec lvef, NICM thought to be from MR. Had cath 08/2017 showing non obs cad. -vol stable off diuretics as outpatient--treated with iv lasix here, as above -has been noncompliant with cardiac f/u and treatment -cont lisinopril -no BB at present, given active wheezing and unknown severity of bronchospasm sx 's--needs outpt cardio f/u to consider low dose trial once she is stable from asthma standpoint -also ? needs ICD discussion depending on LVEF estimate, once meds are optimized --outpt f/u Elevated trops: -borderline trop elevation with flat trend and nl ck, not c/w acs HTN: -bp stable -cont lisinopril
[2019-03-06] MEDS ORDERED: DEXTROSE 5%-WATER - 50 ML IVPB ONE ×2 (04:27→22:14)
[2019-03-06] MEDS ORDERED: cefTRIAXone SODIUM 1 GM VIAL ONE ×2 (04:27→22:14)
[2019-03-06] MEDS: CEFTRIAXONE 1 GM in DEXTROSE 5%-WATER - 50 ML IVPB SCH (04:33)
[2019-03-06] MEDS: HEPARIN NA (PORCINE) 5,000 UNITS/ML 1ML VIAL SQ SCH ×3 (06:28→22:26)
[2019-03-06] MEDS: ACETAMINOPHEN 325 MG TABLET (FP) PO PRN (06:37)
[2019-03-06] MEDS: ALBUTEROL SO4 2.5/IPRATROPIUM 0.5 INH SOL 3 ML VIAL.NEB. NEB SCH ×4 (07:18→19:50)
[2019-03-06 07:47] LABS: BLOOD UREA NITROGEN 22.2 mg/dL (7-18); CALCIUM 8.7 mg/dL (8.5-10.1); CREATININE 0.8 mg/dL (0.55-1.3); MAGNESIUM 2.6 mg/dL (1.8-2.4); PHOSPHOROUS 3.7 mg/dL (2.5-4.9); POTASSIUM 4.3 mmol/L (3.5-5.1)
[2019-03-06 07:56] LABS: BASO % 0.3 % (0-2.0); EOS % 0.3 % (0-4.5); HEMATOCRIT 36.6 % (32.4-45.2); HEMOGLOBIN 11.5 GM/dL (10.7-15.3); LYMPH % 12.5 % (8-40); MCH 23.4 pg (25.7-33.7); MCHC 31.5 g/dl (32.0-36.0); MEAN CELL VOLUME 74.3 fl (80-96); MEAN PLT VOLUME 8.5 fl (7.5-11.1); MONO % 8.1 % (3.8-10.2); NEUT % 78.8 % (42.8-82.8); PLATELET COUNT 321 K/MM3 (134-434); RBC 4.92 M/mm3 (3.60-5.2); RDW 19.1 % (11.6-15.6); WHITE BLOOD COUNT 16.2 K/mm3 (4.0-10.0)
[2019-03-06] MEDS: predniSONE 20 MG TABLET (UD) PO SCH (09:28)
[2019-03-06] MEDS: guaiFENesin 200 MG/10 ML 10 ML UNIT-DOSE CUPS PO PRN ×2 (09:28→22:25)
[2019-03-06] MEDS: LISINOPRIL 20 MG TABLET (FP) PO SCH (09:28)
[2019-03-06] MEDS: DOCUSATE SODIUM 100 MG CAPSULE (FP) PO SCH ×2 (09:29→22:27)
[2019-03-06] MEDS: POLYETHYLENE GLYCOL 3350 119 GM BTL PO SCH ×2 (09:29→22:26)
[2019-03-06] MEDS: PANTOPRAZOLE 40 MG TABLET (FP) PO SCH (09:29)
[2019-03-06 10:48] LABS: ANISOCYTOSIS 2+; MACROCYTOSIS 0; PLATELET ESTIMATE NORMAL; TARGET CELLS 1+
--- NOTE | 2019-03-06 10:59 | PN ---
Progress Note (short form) - Note Progress Note: PULMONARY Breathing continues to improve but still with some dyspnea on exertion. Vital Signs Period Temp Pulse Resp BP Sys/Gatica Pulse Ox Last 24 Hr 98.5 F-99.1 F 72-80 18-18 98-150/62-77 94 Gen: NAD at rest Heart: RRR Lung: scattered rhonchi Abd: soft, nontender Ext: no edema CBC, BMP 03/06/19 06:35 03/06/19 06:35 Active Medications Acetaminophen (Tylenol -) 650 mg PO Q6H PRN PRN Reason: PAIN SCALE 5-8 Last Admin: 03/06/19 06:37 Dose: 650 mg Albuterol Sulfate (Ventolin 0.083% Nebulizer Soln -) 1 amp NEB Q1H PRN PRN Reason: SHORT OF BREATH/WHEEZING Last Admin: 03/04/19 13:24 Dose: 1 amp Albuterol/Ipratropium (Duoneb -) 1 amp NEB RQID [facility] Last Admin: 03/06/19 07:18 Dose: 1 amp Docusate Sodium (Colace -) 100 mg PO BID [facility] Last Admin: 03/06/19 09:29 Dose: 100 mg Guaifenesin (Robitussin -) 10 ml PO Q8H PRN PRN Reason: COUGH Last Admin: 03/06/19 09:28 Dose: 10 ml Heparin Sodium (Porcine) (Heparin -) 5,000 unit SQ TID [facility] Last Admin: 03/06/19 06:28 Dose: 5,000 unit Ceftriaxone Sodium 1 gm/ (Dextrose) 50 mls @ 100 mls/hr IVPB DAILY@0400 [facility] Last Admin: 03/06/19 04:33 Dose: 100 mls/hr Lisinopril (Prinivil) 20 mg PO DAILY [facility] Last Admin: 03/06/19 09:28 Dose: 20 mg Melatonin (Melatonin) 5 mg PO HS PRN PRN Reason: INSOMNIA Pantoprazole Sodium (Protonix -) 40 mg PO DAILY [facility] Last Admin: 03/06/19 09:29 Dose: 40 mg Polyethylene Glycol (Miralax (For Daily Use) -) 17 gm PO BID [facility] Last Admin: 03/06/19 09:29 Dose: 17 gm Prednisone (Deltasone -) 60 mg PO DAILY [facility] Last Admin: 03/06/19 09:28 Dose: 60 mg Senna (Senna -) 2 tab PO HS PRN PRN Reason: CONSTIPATION Last Admin: 03/04/19 22:02 Dose: 2 tab A/P Acute Asthma Exacerbation Acute on Chronic Systolic Heart Failure Mitral Regurgitation HTN - prednisone taper - inhaled bronchodilators standing and PRN - incentive spirometry - lasix per cardiology - monitor urine output, creatinine - DVT prophylaxis
--- NOTE | 2019-03-06 14:19 | PN ---
Progress Note, Physician Chief Complaint: Ms Trevino says her breathing is close to baseline. No cp or n/v. - Current Medication List Current Medications: Active Medications Acetaminophen (Tylenol -) 650 mg PO Q6H PRN PRN Reason: PAIN SCALE 5-8 Last Admin: 03/06/19 06:37 Dose: 650 mg Albuterol Sulfate (Ventolin 0.083% Nebulizer Soln -) 1 amp NEB Q1H PRN PRN Reason: SHORT OF BREATH/WHEEZING Last Admin: 03/04/19 13:24 Dose: 1 amp Albuterol/Ipratropium (Duoneb -) 1 amp NEB RQID [facility] Last Admin: 03/06/19 11:00 Dose: 1 amp Docusate Sodium (Colace -) 100 mg PO BID [facility] Last Admin: 03/06/19 09:29 Dose: 100 mg Guaifenesin (Robitussin -) 10 ml PO Q8H PRN PRN Reason: COUGH Last Admin: 03/06/19 09:28 Dose: 10 ml Heparin Sodium (Porcine) (Heparin -) 5,000 unit SQ TID [facility] Last Admin: 03/06/19 13:25 Dose: 5,000 unit Ceftriaxone Sodium 1 gm/ (Dextrose) 50 mls @ 100 mls/hr IVPB DAILY@0400 [facility] Last Admin: 03/06/19 04:33 Dose: 100 mls/hr Lisinopril (Prinivil) 20 mg PO DAILY [facility] Last Admin: 03/06/19 09:28 Dose: 20 mg Melatonin (Melatonin) 5 mg PO HS PRN PRN Reason: INSOMNIA Pantoprazole Sodium (Protonix -) 40 mg PO DAILY [facility] Last Admin: 03/06/19 09:29 Dose: 40 mg Polyethylene Glycol (Miralax (For Daily Use) -) 17 gm PO BID [facility] Last Admin: 03/06/19 09:29 Dose: 17 gm Prednisone (Deltasone -) 60 mg PO DAILY [facility] Last Admin: 03/06/19 09:28 Dose: 60 mg Senna (Senna -) 2 tab PO HS PRN PRN Reason: CONSTIPATION Last Admin: 03/04/19 22:02 Dose: 2 tab - Objective Vital Signs: Vital Signs Temperature 37.1 C 03/06/19 09:55 Pulse Rate 74 03/06/19 09:55 Respiratory Rate 18 03/06/19 09:55 Blood Pressure 113/65 03/06/19 09:55 O2 Sat by Pulse Oximetry (%) 94 L 03/06/19 09:55 Constitutional: Yes: No Distress, Calm, Obese Cardiovascular: Yes: Regular Rate and Rhythm. No: Gallop, Murmur, Rub Respiratory: Yes: Regular, Wheezes (minimal). No: CTA Bilaterally, On Nasal O2 , Rales, Rhonchi Gastrointestinal: Yes: Normal Bowel Sounds, Soft. No: Distention, Tenderness Extremities: Yes: WNL Edema: No Labs: CBC, BMP 03/06/19 06:35 03/06/19 06:35 Problem List - Problems (1) PNA (pneumonia) Code(s): J18.9 - PNEUMONIA, UNSPECIFIED ORGANISM (2) Asthma exacerbation Code(s): J45.901 - UNSPECIFIED ASTHMA WITH (ACUTE) EXACERBATION Qualifiers: Asthma severity: moderate Asthma persistence: persistent Qualified Code(s ): J45.41 - Moderate persistent asthma with (acute) exacerbation (3) CHF (congestive heart failure) Code(s): I50.9 - HEART FAILURE, UNSPECIFIED Qualifiers: (4) Obesity Code(s): E66.9 - OBESITY, UNSPECIFIED Qualifiers: (5) HTN (hypertension) Code(s): I10 - ESSENTIAL (PRIMARY) HYPERTENSION (6) Constipation Code(s): K59.00 - CONSTIPATION, UNSPECIFIED Assessment/Plan (1) PNA (pneumonia) Assessment/Plan: -continue rocephin day 6 -finished full course of rocephin -continue rocephin -on discharge can finish with augmentin Code(s): J18.9 - PNEUMONIA, UNSPECIFIED ORGANISM (2) Asthma exacerbation Assessment/Plan: -improved -start oral prednisone today -if tolerates, discharge tomorrow Code(s): J45.901 - UNSPECIFIED ASTHMA WITH (ACUTE) EXACERBATION Qualifiers: Asthma severity: moderate Asthma persistence: persistent Qualified Code(s ): J45.41 - Moderate persistent asthma with (acute) exacerbation (3) CHF (congestive heart failure) Assessment/Plan: -appreciate cardiology assistance -po lasix today Code(s): I50.9 - HEART FAILURE, UNSPECIFIED Qualifiers: (4) Obesity Assessment/Plan: -outpatient weight loss plan Code(s): E66.9 - OBESITY, UNSPECIFIED Qualifiers: (5) HTN (hypertension) Assessment/Plan: -continue lisinopril and lasix -considering on high dose solumedrol unclear if HTN secondary to steroids/ hospital stay or needs med adjustment -monitor Code(s): I10 - ESSENTIAL (PRIMARY) HYPERTENSION
--- NOTE | 2019-03-06 15:38 | PN ---
Progress Note (short form) - Note Progress Note: s: sob improving, chest feels less tight. no chest pain, palps, dizziness, lightheadedness Current Medications Acetaminophen (Tylenol -) 650 mg PO Q6H PRN PRN Reason: PAIN SCALE 5-8 Last Admin: 03/06/19 06:37 Dose: 650 mg Albuterol Sulfate (Ventolin 0.083% Nebulizer Soln -) 1 amp NEB Q1H PRN PRN Reason: SHORT OF BREATH/WHEEZING Last Admin: 03/04/19 13:24 Dose: 1 amp Albuterol/Ipratropium (Duoneb -) 1 amp NEB RQID [facility] Last Admin: 03/06/19 11:00 Dose: 1 amp Docusate Sodium (Colace -) 100 mg PO BID [facility] Last Admin: 03/06/19 09:29 Dose: 100 mg Guaifenesin (Robitussin -) 10 ml PO Q8H PRN PRN Reason: COUGH Last Admin: 03/06/19 09:28 Dose: 10 ml Heparin Sodium (Porcine) (Heparin -) 5,000 unit SQ TID [facility] Last Admin: 03/06/19 13:25 Dose: 5,000 unit Ceftriaxone Sodium 1 gm/ (Dextrose) 50 mls @ 100 mls/hr IVPB DAILY@0400 [facility] Last Admin: 03/06/19 04:33 Dose: 100 mls/hr Lisinopril (Prinivil) 20 mg PO DAILY [facility] Last Admin: 03/06/19 09:28 Dose: 20 mg Melatonin (Melatonin) 5 mg PO HS PRN PRN Reason: INSOMNIA Pantoprazole Sodium (Protonix -) 40 mg PO DAILY [facility] Last Admin: 03/06/19 09:29 Dose: 40 mg Polyethylene Glycol (Miralax (For Daily Use) -) 17 gm PO BID [facility] Last Admin: 03/06/19 09:29 Dose: 17 gm Prednisone (Deltasone -) 60 mg PO DAILY [facility] Last Admin: 03/06/19 09:28 Dose: 60 mg Senna (Senna -) 2 tab PO HS PRN PRN Reason: CONSTIPATION Last Admin: 03/04/19 22:02 Dose: 2 tab Vital Signs Period Temp Pulse Resp BP Sys/Gatica Pulse Ox Last 24 Hr 98.5 F-99.1 F 72-80 18-18 113-153/65-77 94 Constitutional: Yes: No Distress Cardiovascular: Yes: Regular Rate and Rhythm Respiratory: Yes: Wheezes Gastrointestinal: Yes: Soft, Abdomen, Obese Edema: No (warm, well perfused) Neurological: Yes: Alert, Oriented no jaundice, diaphoresis not agitated Assessment/Plan echo 02/2019: mild lve, sev dec lvef, global hk, g2dd, lae, nl rv, mod-sev mr, mild tr CXR: congestive and infiltrative findings ecg: sr, old lbbb A/P: 63 f hx lbbb, systolic chf (NICM), MR, asthma, htn, here with sob. SOB, asthma: -current sxs seem related to asthma primarily; congestive findings on CXR and elevated JVD suggest component of CHF - improved with IV lasix -appears euvolemic currently - start lasix 40 mg PO daily -cont tx per pulm Abnl ecg: -pt with chronic lbbb -recent cath with non obs cad Chronic syst chf, MR: -pt with known sev dec lvef, NICM thought to be from MR. Had cath 08/2017 showing non obs cad. -vol stable off diuretics as outpatient--treated with iv lasix here, as above -has been noncompliant with cardiac f/u and treatment -cont lisinopril -no BB at present, given active wheezing and unknown severity of bronchospasm sx 's--needs outpt cardio f/u to consider low dose trial once she is stable from asthma standpoint -also ? needs ICD discussion depending on LVEF estimate, once meds are optimized --outpt f/u Elevated trops: -borderline trop elevation with flat trend and nl ck, not c/w acs HTN: -bp stable -cont lisinopril
[2019-03-07 03:24] VITALS: TEMP 98.1
[2019-03-07] MEDS: CEFTRIAXONE 1 GM in DEXTROSE 5%-WATER - 50 ML IVPB SCH (03:49)
[2019-03-07] MEDS: HEPARIN NA (PORCINE) 5,000 UNITS/ML 1ML VIAL SQ SCH ×2 (06:03→14:33)
[2019-03-07] MEDS: guaiFENesin 200 MG/10 ML 10 ML UNIT-DOSE CUPS PO PRN (06:03)
[2019-03-07] MEDS ORDERED: PT OWN MED DRAWER 7, Y5N ONE (06:12)
[2019-03-07] MEDS: ALBUTEROL SO4 2.5/IPRATROPIUM 0.5 INH SOL 3 ML VIAL.NEB. NEB SCH ×3 (07:25→16:34)
[2019-03-07 07:42] LABS: BLOOD UREA NITROGEN 21.8 mg/dL (7-18); CALCIUM 8.9 mg/dL (8.5-10.1); CREATININE 0.8 mg/dL (0.55-1.3); MAGNESIUM 2.5 mg/dL (1.8-2.4); PHOSPHOROUS 3.5 mg/dL (2.5-4.9); POTASSIUM 4.1 mmol/L (3.5-5.1)
[2019-03-07 07:51] LABS: BASO % 0.3 % (0-2.0); EOS % 1.1 % (0-4.5); HEMATOCRIT 36.2 % (32.4-45.2); HEMOGLOBIN 11.2 GM/dL (10.7-15.3); LYMPH % 23.5 % (8-40); MCHC 30.8 g/dl (32.0-36.0); MEAN CELL VOLUME 74.5 fl (80-96); MONO % 7.3 % (3.8-10.2); NEUT % 67.8 % (42.8-82.8); PLATELET COUNT 285 K/MM3 (134-434); RBC 4.86 M/mm3 (3.60-5.2); RDW 19.1 % (11.6-15.6); WHITE BLOOD COUNT 15.2 K/mm3 (4.0-10.0)
[2019-03-07] MEDS: predniSONE 20 MG TABLET (UD) PO SCH (09:46)
[2019-03-07] MEDS: PANTOPRAZOLE 40 MG TABLET (FP) PO SCH (09:48)
[2019-03-07] MEDS: DOCUSATE SODIUM 100 MG CAPSULE (FP) PO SCH (09:48)
[2019-03-07] MEDS: LISINOPRIL 20 MG TABLET (FP) PO SCH (09:48)
[2019-03-07] MEDS ORDERED: FUROSEMIDE 40 MG TABLET (FP) PO SCH (10:00)
[2019-03-07 11:54] VITALS: BP 141/71; PULSE 65
--- NOTE | 2019-03-07 12:19 | DS ---
Physical Examination Vital Signs: Vital Signs Temperature 36.7 C 03/07/19 10:00 Pulse Rate 65 03/07/19 10:00 Respiratory Rate 20 03/07/19 10:00 Blood Pressure 141/71 03/07/19 10:00 O2 Sat by Pulse Oximetry (%) 94 L 03/07/19 09:00 Constitutional: Yes: No Distress, Calm, Obese Cardiovascular: Yes: Regular Rate and Rhythm. No: Gallop, Murmur, Rub Respiratory: Yes: Regular, CTA Bilaterally. No: Rales, Rhonchi, Wheezes Gastrointestinal: Yes: Normal Bowel Sounds, Soft. No: Distention, Tenderness Extremities: Yes: WNL Edema: No Labs: CBC, BMP 03/07/19 06:30 03/07/19 06:30 Discharge Summary Reason For Visit: EXACERBATION OF ASTHMA, BRONCHITIS,PNEUMONIA Current Active Problems Asthma exacerbation (Acute) Bronchitis (Acute) CHF (congestive heart failure) (Acute) Constipation (Acute) Dyspnea (Acute) Elevated troponin (Acute) Ground glass opacity present on imaging of lung (Acute) Obesity (Acute) PNA (pneumonia) (Acute) Shortness of breath (Acute) Hospital Course: (1) PNA (pneumonia) Code(s): J18.9 - PNEUMONIA, UNSPECIFIED ORGANISM (2) Asthma exacerbation Code(s): J45.901 - UNSPECIFIED ASTHMA WITH (ACUTE) EXACERBATION Qualifiers: Asthma severity: moderate Asthma persistence: persistent Qualified Code(s ): J45.41 - Moderate persistent asthma with (acute) exacerbation (3) CHF (congestive heart failure) Code(s): I50.9 - HEART FAILURE, UNSPECIFIED Qualifiers: (4) Obesity Code(s): E66.9 - OBESITY, UNSPECIFIED Qualifiers: (5) HTN (hypertension) Code(s): I10 - ESSENTIAL (PRIMARY) HYPERTENSION (6) Constipation Code(s): K59.00 - CONSTIPATION, UNSPECIFIED Ms Trevino is a pleasant 63 year old female who came in with asthma exacerbation secondary to pneumonia. She was recently admitted and discharged on 02/27 for asthma exacerbation. On her first admission she had no signs of pneumonia, she received a CT scan that admission and was cleared. She was discharged stating she felt in her normal state of health and remained that way for 24 hours. However after that she began to feel worse again. She developed shortness of breath and coughing. She returned and was found to have asthma exacerbation secondary to pneumonia. She was admitted to the hospital and seen by cardiology for her CHF and pulmonary for her asthma exacerbation. HCAP pneumonia was considered, however it is more likely to be CAP so she was treated with rocephin and zithromax. She was placed on IV solumedrol and bronchodilators. She was also diuresed with IV lasix. She improved significantly. She finished zithromax and was successfully transitioned to prednisone. She was monitored 24 hours on prednisone and continued to improve. She is safe for discharge home. 33 minutes spent in preparation of this discharge Condition: Stable - Instructions Diet, Activity, Other Instructions: resume previous diet and activity Referrals: Luz Marina Shaw MD [Staff Physician] - Becky Berrios MD [Primary Care Provider] - 1 Week Disposition: HOME - Home Medications Comprehensive Discharge Medication List: Ambulatory Orders Albuterol 0.083% Nebulizer Kristyn [Ventolin 0.083% Nebulizer Soln -] 1 neb NEB QID 02/25/19 Budesonide/Formeterol Fumarate [SYMBICORT 80/4.5mcg -] 2 puff IH BID #1 inhaler 02/27/19 Lisinopril [Prinivil] 20 mg PO DAILY #60 tablet 02/27/19 predniSONE [Deltasone -] 20 mg PO ASDIR #17 tablet 02/27/19 Amox-Tr/K Cl [Augmentin - 875Mg Tablet] 1 tab PO BID #6 tablet 03/07/19 Furosemide [Lasix -] 40 mg PO DAILY #30 tablet 03/07/19
[2019-03-07] MEDS: POLYETHYLENE GLYCOL 3350 119 GM BTL PO SCH (14:32)
--- NOTE | 2019-03-07 15:24 | PN ---
Progress Note (short form) - Note Progress Note: s:sob much better. no cp, no leg swelling, dizzy Current Medications Generic Name Dose Route Start Last Admin Trade Name Freq PRN Reason Stop Dose Admin Acetaminophen 650 mg 03/02/19 17:40 03/06/19 06:37 Tylenol - PO 650 mg Q6H PRN Administration PAIN SCALE 5-8 Albuterol Sulfate 1 amp 03/01/19 12:35 03/04/19 13:24 Ventolin 0.083% Nebulizer Soln - NEB 1 amp Q1H PRN Administration SHORT OF BREATH/WHEEZING Albuterol/Ipratropium 1 amp 03/01/19 08:00 03/07/19 11:32 Duoneb - NEB Not Given RQID IDALIA Docusate Sodium 100 mg 03/05/19 11:30 03/07/19 09:48 Colace - PO 100 mg BID IDALIA Administration Furosemide 40 mg 03/07/19 10:00 03/07/19 09:48 Lasix - PO 40 mg DAILY IDALIA Administration Guaifenesin 10 ml 03/02/19 21:05 03/07/19 06:03 Robitussin - PO 10 ml Q8H PRN Administration COUGH Heparin Sodium (Porcine) 5,000 unit 03/01/19 07:15 03/07/19 14:33 Heparin - SQ 5,000 unit TID IDALIA Administration Ceftriaxone Sodium 1 gm/ 50 mls @ 100 mls/hr 03/02/19 04:00 03/07/19 03:49 Dextrose IVPB 100 mls/hr DAILY@0400 IDALIA Administration Lisinopril 20 mg 03/01/19 10:00 03/07/19 09:48 Prinivil PO 20 mg DAILY IDALIA Administration Melatonin 5 mg 03/02/19 11:52 03/06/19 22:25 Melatonin PO 5 mg HS PRN Administration INSOMNIA Pantoprazole Sodium 40 mg 03/01/19 10:00 03/07/19 09:48 Protonix - PO 40 mg DAILY IDALIA Administration Polyethylene Glycol 17 gm 03/05/19 11:30 03/07/19 14:32 Miralax (For Daily Use) - PO 17 gm BID IDALIA Administration Prednisone 60 mg 03/06/19 10:00 03/07/19 09:46 Deltasone - PO 60 mg DAILY IDALIA Administration Senna 2 tab 03/02/19 21:06 03/04/19 22:02 Senna - PO 2 tab HS PRN Administration CONSTIPATION Vital Signs Period Temp Pulse Resp BP Sys/Gatica Pulse Ox Last 24 Hr 97.9 F-98.8 F 65-75 20-20 137-153/62-76 94-94 Constitutional: Yes: Well Nourished, No Distress, Calm Cardiovascular: Yes: Regular Rate and Rhythm, S1, S2. No: Gallop, Murmur Respiratory: cta bl nl eff Extremities: No: Cold Edema: No Neurological: Yes: Alert, Oriented Psychiatric: No: Agitated no jaundice diaphoresis Labs: Laboratory Last Values WBC 15.2 K/mm3 (4.0-10.0) H 03/07/19 06:30 RBC 4.86 M/mm3 (3.60-5.2) 03/07/19 06:30 Hgb 11.2 GM/dL (10.7-15.3) 03/07/19 06:30 Hct 36.2 % (32.4-45.2) 03/07/19 06:30 MCV 74.5 fl (80-96) L 03/07/19 06:30 MCH 23.0 pg (25.7-33.7) L 03/07/19 06:30 MCHC 30.8 g/dl (32.0-36.0) L 03/07/19 06:30 RDW 19.1 % (11.6-15.6) H 03/07/19 06:30 Plt Count 285 K/MM3 (134-434) 03/07/19 06:30 MPV 8.0 fl (7.5-11.1) 03/07/19 06:30 Absolute Neuts (auto) 10.3 K/mm3 (1.5-8.0) H 03/07/19 06:30 Neutrophils % 67.8 % (42.8-82.8) 03/07/19 06:30 Neutrophils % (Manual) 82.7 % (42.8-82.8) 03/06/19 06:35 Band Neutrophils % 0.0 % 03/06/19 06:35 Lymphocytes % 23.5 % (8-40) D 03/07/19 06:30 Lymphocytes % (Manual) 10.6 % (8-40) D 03/06/19 06:35 Monocytes % 7.3 % (3.8-10.2) 03/07/19 06:30 Monocytes % (Manual) 3 % (3.8-10.2) L 03/06/19 06:35 Eosinophils % 1.1 % (0-4.5) D 03/07/19 06:30 Eosinophils % (Manual) 0.0 % (0-4.5) 03/06/19 06:35 Basophils % 0.3 % (0-2.0) 03/07/19 06:30 Basophils % (Manual) 0.0 % (0-2.0) 03/06/19 06:35 Myelocytes % (Man) 2 % (0-2) D 03/06/19 06:35 Promyelocytes % (Man) 0 % (0-2) 03/06/19 06:35 Blast Cells % (Manual) 0 % (0-0) 03/06/19 06:35 Nucleated RBC % 0 % (0-0) 03/07/19 06:30 Metamyelocytes 1 % (0-2) D 03/06/19 06:35 Hypochromia 0 03/06/19 06:35 Platelet Estimate Normal 03/06/19 06:35 Polychromasia 0 03/06/19 06:35 Poikilocytosis 1+ 03/06/19 06:35 Anisocytosis 2+ 03/06/19 06:35 Microcytosis 2+ 03/06/19 06:35 Macrocytosis 0 03/06/19 06:35 Target Cells 1+ 03/06/19 06:35 Ovalocytes 1+ 03/01/19 09:16 Anticoagulation Therapy No Result Required. 03/01/19 08:00 Puncture Site Right radial 03/01/19 08:00 ABG pH 7.42 (7.35-7.45) 03/01/19 08:00 ABG pCO2 at Pt Temp 43.9 mmHg (35-45) 03/01/19 08:00 ABG pO2 at Pt Temp 61.3 mmHg (80-105) L 03/01/19 08:00 ABG HCO3 27.9 mmol/L (22-27) H 03/01/19 08:00 ABG O2 Sat (Measured) 90.6 % (95-98) L 03/01/19 08:00 ABG O2 Content 12.9 % vol (15-22) L 03/01/19 08:00 ABG Base Excess 3.5 meq/l (-2-2) H 03/01/19 08:00 Cholo Test Positive 03/01/19 08:00 VBG pH 7.44 (7.31-7.41) H 03/01/19 03:56 POC VBG pCO2 44.3 mmHg (41-51) 03/01/19 03:56 POC VBG pO2 28.0 mmHg (30-40) L 03/01/19 03:56 VBG HCO3 29.5 mmol/L (23-29) H 03/01/19 03:56 VBG O2 Sat (Jeff) 46.2 % (70-80) L 03/01/19 03:56 VBG Base Excess 5.2 meq/l (-2-2) H 03/01/19 03:56 O2 Delivery Device No Result Required. 03/01/19 08:00 Oxygen Flow Rate No 03/01/19 08:00 Vent Mode No Result Required. 03/01/19 08:00 Vent Rate No Result Required. 03/01/19 08:00 Mechanical Rate No Result Required. 03/01/19 08:00 Pressure Support Vent No Result Required. 03/01/19 08:00 Sodium 137 mmol/L (136-145) 03/07/19 06:30 Potassium 4.1 mmol/L (3.5-5.1) 03/07/19 06:30 Chloride 100 mmol/L (98-107) 03/07/19 06:30 Carbon Dioxide 30 mmol/L (21-32) 03/07/19 06:30 Anion Gap 7 MMOL/L (8-16) L 03/07/19 06:30 BUN 21.8 mg/dL (7-18) H 03/07/19 06:30 Creatinine 0.8 mg/dL (0.55-1.3) 03/07/19 06:30 Est GFR (CKD-EPI)AfAm 91.58 03/07/19 06:30 Est GFR (CKD-EPI)NonAf 79.01 03/07/19 06:30 Random Glucose 116 mg/dL (74-106) H 03/07/19 06:30 Calcium 8.9 mg/dL (8.5-10.1) 03/07/19 06:30 Phosphorus 3.5 mg/dL (2.5-4.9) 03/07/19 06:30 Magnesium 2.5 mg/dL (1.8-2.4) H 03/07/19 06:30 Total Bilirubin 0.8 mg/dL (0.2-1) 03/01/19 03:56 AST 20 U/L (15-37) 03/01/19 03:56 ALT 50 U/L (13-61) 03/01/19 03:56 Alkaline Phosphatase 90 U/L (45-117) 03/01/19 03:56 Troponin I 0.07 ng/ml (0.00-0.05) H 03/01/19 09:16 B-Natriuretic Peptide 5782.2 pg/ml (5-125) H 03/01/19 03:56 Total Protein 7.8 g/dl (6.4-8.2) 03/01/19 03:56 Albumin 4.0 g/dl (3.4-5.0) 03/01/19 03:56 echo 02/2019: mild lve, sev dec lvef, global hk, g2dd, lae, nl rv, mod-sev mr, mild tr CXR: congestive and infiltrative findings ecg: sr, old lbbb a/p: 63 f hx lbbb, systolic chf (NICM), MR, asthma, htn, here with sob. SOB, asthma: -current sxs seem related to asthma primarily; congestive findings on CXR and elevated JVD suggest component of CHF - improved with IV lasix -appears euvolemic currently, cont lasix 40 mg PO daily -cont tx per pulm Abnl ecg: -pt with chronic lbbb -recent cath with non obs cad Chronic syst chf, MR: -pt with known sev dec lvef, NICM thought to be from MR. Had cath 08/2017 showing non obs cad. -vol stable off diuretics as outpatient--treated with iv lasix here, as above -has been noncompliant with cardiac f/u and treatment -cont lisinopril -no BB at present, given active wheezing and unknown severity of bronchospasm sx 's--needs outpt cardio f/u to consider low dose trial once she is stable from asthma standpoint -also ? needs ICD discussion depending on LVEF estimate, once meds are optimized --outpt f/u Elevated trops: -borderline trop elevation with flat trend and nl ck, not c/w acs HTN: -bp stable -cont lisinopril cardiac choe stable
== END 2019-03-07 19:56 | disposition home or self-care (01) | DRG 202 ==
LOC: JER 03:10 → JERBED 05:51 → J6S 09:51
PROVIDERS: ADMIT Internal Medicine; ATTEND Internal Medicine
DX: J45.41 Moderate persistent asthma with (acute) exacerbation (principal); J18.9 Pneumonia, unspecified organism; I42.8 Other cardiomyopathies; I50.22 Chronic systolic (congestive) heart failure; I24.8 Other forms of acute ischemic heart disease; I25.10 Atherosclerotic heart disease of native coronary artery without angina pectoris; I10 Essential (primary) hypertension; I11.0 Hypertensive heart disease with heart failure; E66.9 Obesity, unspecified; Z68.34 Body mass index [BMI] 34.0-34.9, adult; I44.7 Left bundle-branch block, unspecified; I34.0 Nonrheumatic mitral (valve) insufficiency; R06.00 Dyspnea, unspecified; R91.8 Other nonspecific abnormal finding of lung field; R00.0 Tachycardia, unspecified; K59.00 Constipation, unspecified; Z96.653 Presence of artificial knee joint, bilateral; R07.89 Other chest pain; Z91.14 Patient's other noncompliance with medication regimen
CPT/HCPCS: 36415; 36600; 71045-TC-FY; 80048; 80053; 82803; 83735; 83880; 84100; 84484; 85025; 87040; 87899; 93005; 93010; 94640; 99283-25; J1644; J7030

== ENCOUNTER 2019-06-19 15:28 | Inpatient (IN) | payer OTHER ==
[2019-06-19 15:40] VITALS: BMI 33.1
--- NOTE | 2019-06-19 15:41 | PDOC ---
Rapid Medical Evaluation Chief Complaint: Chest Pain Medical Evaluation: Allergies Allergy/AdvReac Type Severity Reaction Status Date / Time No Known Drug Allergies Allergy Verified 03/01/19 03:44 06/19/19 15:37 I have performed a brief in-person evaluation of this patient. The patient presents with a chief complaint of: Chest pain Pertinent physical exam findings: pale, rubbing chest, + Hx of CHF I have ordered the following: CBC, cmp, Pt/iNR, card enzymes, BNP The patient will proceed to the ED for further evaluation. 06/19/19 15:39 Discharge Disposition - Diagnosis Chest tightness - Discharge Dispostion Condition at time of disposition: Stable - Referrals - Patient Instructions - Post Discharge Activity
--- NOTE | 2019-06-19 15:54 | PDOC ---
History of Present Illness - General Chief Complaint: Chest Pain Stated Complaint: CHEST PAIN - History of Present Illness Initial Comments: The pt is a 63F w/ a history of HTN and HF who presents for evaluation for 2-3 hours of substernal chest pain and associated SOB. The pt reports the pain started at rest, does not radiate, is constant, is associated with SOB and nausea, and is not exacerbated or alleviated by anything she can identify. She reports recently having some teeth removed (5d ago), but denies fevers/chills, vision changes, PAZ, vomiting, abdominal pain, dysuria, hematuria, diarrhea, or blood in her stool. 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 placement of an AICD 06/19/19 16:15 Past History - Past Medical History Allergies/Adverse Reactions: Allergies Allergy/AdvReac Type Severity Reaction Status Date / Time Sulfa (Sulfonamide Allergy Verified 06/19/19 15:40 Antibiotics) Home Medications: Ambulatory Orders Albuterol 0.083% Nebulizer Kristyn [Ventolin 0.083% Nebulizer Soln -] 1 neb NEB QID 02/25/19 Budesonide/Formeterol Fumarate [SYMBICORT 80/4.5mcg -] 2 puff IH BID #1 inhaler 02/27/19 Lisinopril [Prinivil] 20 mg PO DAILY #60 tablet 02/27/19 Amox-Tr/K Cl [Augmentin - 875Mg Tablet] 1 tab PO BID #6 tablet 03/07/19 Anemia: Yes Asthma: Yes Cancer: No Cardiac Disorders: Yes (CAD) CVA: No COPD: Yes CHF: Yes Dementia: No Diabetes: No GI Disorders: No Disorders: No HTN: Yes Hypercholesterolemia: No Liver Disease: No Seizures: No Thyroid Disease: Yes - Surgical History Abdominal Surgery: No Appendectomy: No Cardiac Surgery: Yes (cardiac cath) Cholecystectomy: No Lung Surgery: No Neurologic Surgery: No Orthopedic Surgery: Yes (BILATERAL KNEE ARTHROSCOPY) - Immunization History Immunization Up to Date: No - Psycho Social/Smoking Cessation Hx Smoking History: Never smoked Have you smoked in the past 12 months: No Number of Cigarettes Smoked Daily: 0 If you are a former smoker, when did you quit?: 40 Information on smoking cessation initiated: No Hx Alcohol Use: No Drug/Substance Use Hx: No Substance Use Type: None Hx Substance Use Treatment: No Review of Systems - Review of Systems Able to Perform ROS?: Yes Comments:: GENERAL/CONSTITUTIONAL: No fever or chills. No weakness HEAD, EYES, EARS, NOSE AND THROAT: No change in vision. No change in hearing. No sore throat CARDIOVASCULAR: +CP and SOB RESPIRATORY: Denies cough, hemoptysis GASTROINTESTINAL: +nausea; No vomiting, diarrhea or constipation GENITOURINARY: No dysuria, frequency, or change in urination MUSCULOSKELETAL: No joint or muscle swelling or pain. No neck or back pain SKIN: No rash NEUROLOGIC: No headache, vertigo, loss of consciousness, or change in strength/ sensation ENDOCRINE: No increased thirst. No abnormal weight change HEMATOLOGIC/LYMPHATIC: No anemia, easy bleeding, or history of blood clots ALLERGIC/IMMUNOLOGIC: No hives or skin allergy 06/19/19 15:54 Is the patient limited Yoruba proficient: No *Physical Exam - Vital Signs Last Vital Signs Temp Pulse Resp BP Pulse Ox 98.4 F 71 16 163/76 99 06/19/19 15:38 06/19/19 15:38 06/19/19 15:38 06/19/19 15:38 06/19/19 15:38 - Physical Exam Comments: GENERAL: Awake, alert, and oriented to person/place/time, in no acute distress HEAD: No signs of trauma, normocephalic, atraumatic EYES: PERRLA, EOMI, sclera anicteric, conjunctiva clear ENT: Hearing grossly normal, nares patent, oropharynx clear without exudates. No uvular deviation. Moist mucosa LUNGS: No distress, speaks in full sentences, clear to auscultation bilaterally HEART: Regular rate and rhythm, normal S1 and S2, no murmurs appreciated, peripheral pulses normal and equal bilaterally ABDOMEN: Soft, nontender, normoactive bowel sounds. No guarding, no rebound EXTREMITIES: Normal inspection, Normal range of motion, no edema. No clubbing or cyanosis NEUROLOGICAL: Cranial nerves II through XII grossly intact. Normal speech, normal gait, no focal sensorimotor deficits SKIN: Warm, Dry 06/19/19 15:54 ED Treatment Course - LABORATORY CBC & Chemistry Diagram: 06/19/19 15:54 06/19/19 15:54 Medical Decision Making - Medical Decision Making The pt is a 63F w/ a history of HTN and HF who presents for evaluation of 2-3 hours of substernal chest pain w/ associated SOB and nausea Ddx: ACS; HF exacerbation, not likely PNA, PNX, or MSK ED Course Labs Sent ECG CXR ASA 324mg PO once ECG w/ LBBB (seen on old ECG); HR 70; QTc 488; no ischemic changes 06/19/19 16:22 Trop elevated to 0.11 -Pt s/p ASA 324mg PO once -Case discussed w/ Dr. Shaw will trend Trop and will not start a heparin gtt at this time No leukcytosis No anemia Lytes wnl No GARETT LFTs unremarkable BNP 1865 Plan for admission for NSTEMI 06/19/19 16:58 Pt signed out to [facility] Admitting 06/19/19 17:32 Discharge - Discharge Information Problems reviewed: Yes Clinical Impression/Diagnosis: Chest tightness, NSTEMI (non-ST elevated myocardial infarction) HTN (hypertension) Qualifiers: Hypertension type: unspecified Qualified Code(s): I10 - Essential (primary) hypertension Condition: Stable - Admission Yes - Follow up/Referral Referrals: Becky Berrios MD [Primary Care Provider] - - Patient Discharge Instructions - Post Discharge Activity
[2019-06-19] MEDS ORDERED: ASPIRIN 81 MG CHEWABLE TABLETS PO ONE (16:06)
[2019-06-19] MEDS ORDERED: ASPIRIN 81 MG CHEWABLE TABLETS ONE (16:07)
[2019-06-19 16:11] LABS: BASO % 0.9 % (0-2.0); EOS % 5.6 % (0-4.5); HEMATOCRIT 34.8 % (32.4-45.2); HEMOGLOBIN 11.1 GM/dL (10.7-15.3); LYMPH % 25.4 % (8-40); MCH 25.3 pg (25.7-33.7); MCHC 31.8 g/dl (32.0-36.0); MEAN CELL VOLUME 79.4 fl (80-96); MEAN PLT VOLUME 9.2 fl (7.5-11.1); MONO % 9.4 % (3.8-10.2); NEUT % 58.7 % (42.8-82.8); PLATELET COUNT 201 K/MM3 (134-434); RBC 4.38 M/mm3 (3.60-5.2); WHITE BLOOD COUNT 6.8 K/mm3 (4.0-10.0)
--- NOTE | 2019-06-19 16:16 | PDOC ---
Attending Attestation - Resident Resident Name: Anival Grant - ED Attending Attestation I have performed the following: I have examined & evaluated the patient, The case was reviewed & discussed with the resident, I agree w/resident's findings & plan - HPI HPI: 06/19/19 16:57 63F w/ a history of HTN and HF who presents for evaluation for 2-3 hours of substernal chest pain and associated SOB. The pt reports the pain started at rest, does not radiate, is constant, is associated with SOB and nausea, and is not exacerbated or alleviated by anything she can identify. She reports recently having some teeth removed (5d ago), but denies fevers/chills, vision changes, PAZ, vomiting, abdominal pain, dysuria, hematuria, diarrhea, or blood in her stool. 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 NAD, well appearing, EOMI, PERRL, MMM, nl conjunctiva, anicteric; neck supple. lungs clear, RRR, no murmur, abdomen soft nontender. Back nontender. [place] x4, no focal neuro deficits. No peripheral edema. normal color for ethnicity, WWP. - Medical Decision Making 06/19/19 16:58 See HPI for details. Prior notes reviewed, including admissions, discharges and consultations. Vital signs reviewed, mildly hypertensive. Vital Signs Temp Pulse Resp BP Pulse Ox 98.4 F 71 16 163/76 99 06/19/19 15:38 06/19/19 15:38 06/19/19 15:38 06/19/19 15:38 06/19/19 15:38 DDx chest pain: ACS, coronary vasospasm, NSTEMI, arrhythmia, unstable angina, PE , dissection, PUD, esophageal spasm, GERD, gastritis, costochondritis, pneumonia , pleurisy, pericarditis/myocarditis. dehydration, electrolyte/metabolic derangements. laboratory results and imaging reviewed, basic labs and lytes wnl, CXR_no acute chest pathology Cardiac panel_positive trop 0.11, similar to prior peaks. bnp elevated >1000 chronically, much less than prior levels when trended. EKG sinus rhythm at 70 bpm no interval abnormalities, wide QRS, ST and T wave segments and morphology normal. Nonspecific T wave abnormalities - appropriate discordance, no concordance In V1-3, neg for Sgarbossa's criteria to signify IL. ED course -interventions: ASA given. no cp here - consults and recommendations: cards Dr Shaw, agree with plan, trend trops. Admit for NSTEMI. Discussed results and management plan with pt and family member at bedside, agree with impression, treatment indications, recommendations and plan. 06/19/19 17:20 06/19/19 17:21 Heart Score/ECG Review #1 ECG reviewed & interpreted by me at: 15:35 General ECG Interpretation: Sinus Rhythm, Normal Rate Compared to previous ECG there are: No significant change 06/19/19 16:59 EKG sinus rhythm at 70 bpm no interval abnormalities, wide QRS, ST and T wave segments and morphology normal. Nonspecific T wave abnormalities - appropriate discordance, no concordance In V1-3, neg for Sgarbossa's criteria to signify IL.
[2019-06-19 16:28] LABS: INR 1.05 (0.83-1.09); PROTHROMBIN TIME (PATIENT) 12.4 SEC (9.7-13.0)
[2019-06-19 16:35] LABS: ALBUMIN 4.1 g/dl (3.4-5.0); BILIRUBIN,TOTAL 0.4 mg/dL (0.2-1); CALCIUM 8.9 mg/dL (8.5-10.1); CREATININE 0.9 mg/dL (0.55-1.3); N-TERMINAL BNP 1866.7 pg/ml (5-125); TOT PROT 7.5 g/dl (6.4-8.2)
--- NOTE | 2019-06-19 17:32 | HP ---
CHIEF COMPLAINT: chest pain and shortness of breath PCP: Dr. Becky Berrios, PCP Dr. Shaw (manager ecommerce) HISTORY OF PRESENT ILLNESS: Patient is a 63 year old female that comes to [facility] for c/o of chest pain accompanied with shortness of breath. She reports that she was in her usual state of health yesterday and today up until 2pm. She was sitting at her desk when she suddenly "felt off". She could not focus and could not concentrate on her work. She felt chest pressure that did not radiate, no jaw pain but did have nausea and shortness of breath associated with the chest pain. She did not have any palpitations. She reports recently having 3 teeth removed last sunday but was given Augmentin one hour prior to the procedure. She remains on the Amoxicillin every 8 hours for 5 more days. She denies fevers/chills, vision changes, PAZ, vomiting, abdominal pain, dysuria, hematuria, diarrhea, or blood in her stool. Her reported EF is 30-35% and states her manager ecommerce is discussing placement of an AICD. She takes furosemide intermittently when she feels like she has weight gain. In the ED she is awake, alert and in no acute distress. Chest pain now feels dull and intermittent. She states she complies with all her cardiac medications. ER course was notable for: (1) trop 0.11 (2) bnp elevated 1800s (3) ekg lbbb, qtc 488, NSR 70s Recent Travel: denies PAST MEDICAL HISTORY: Her past medical history includes hypertension, chf, bronchitis, thyroid dz (benign nodules previously), hx cath nonobstructive CAD, Social History: Smoking: n/a Alcohol: n/a Drugs: n/a Allergies Sulfa (Sulfonamide Antibiotics) Allergy (Verified 06/19/19 15:40) HOME MEDICATIONS: Home Medications Medication Instructions Recorded Albuterol 0.083% Nebulizer Kristyn 1 neb NEB QID 02/25/19 [Ventolin 0.083% Nebulizer Soln -] Budesonide/Formeterol Fumarate 2 puff IH BID #1 inhaler 02/27/19 [SYMBICORT 80/4.5mcg -] Lisinopril [Prinivil] 20 mg PO DAILY #60 tablet 02/27/19 Amox-Tr/K Cl [Augmentin - 875Mg 1 tab PO BID #6 tablet 03/07/19 Tablet] PHYSICAL EXAMINATION Vital Signs - 24 hr 06/19/19 15:38 Temperature 98.4 F Pulse Rate 71 Respiratory 16 Rate Blood Pressure 163/76 O2 Sat by Pulse 99 Oximetry (%) GENERAL: Awake, alert, and fully oriented, in no acute distress. HEAD: Normal with no signs of trauma. EYES: Pupils equal, round and reactive to light, extraocular movements intact, sclera anicteric, conjunctiva clear. No lid lag. EARS, NOSE, THROAT: Ears normal, nares patent, oropharynx clear without exudates. Moist mucous membranes. NECK: Normal range of motion, supple without lymphadenopathy, JVD, or masses. LUNGS: Breath sounds equal, clear to auscultation bilaterally. No wheezes, and no crackles. No accessory muscle use. HEART: Regular rate and rhythm ABDOMEN: Soft, nontender, not distended, normoactive bowel sounds, no guarding, no rebound, no masses. No hepatomegaly or splenomegaly. MUSCULOSKELETAL: Normal range of motion at all joints. No bony deformities or tenderness. No CVA tenderness. UPPER EXTREMITIES: 2+ pulses, warm, well-perfused. No cyanosis. No clubbing. No peripheral edema. LOWER EXTREMITIES: 2+ pulses, warm, well-perfused. No calf tenderness. No peripheral edema. NEUROLOGICAL: Normal speech. Normal gait. PSYCHIATRIC: Cooperative. Good eye contact. Appropriate mood and affect. SKIN: Warm, dry, normal turgor, no rashes or lesions noted, normal capillary refill. Laboratory Results - last 24 hr 06/19/19 06/19/19 06/19/19 15:54 15:54 15:54 WBC 6.8 RBC 4.38 Hgb 11.1 Hct 34.8 MCV 79.4 L MCH 25.3 L MCHC 31.8 L RDW 17.0 H Plt Count 201 MPV 9.2 Absolute Neuts (auto) 4.0 Neutrophils % 58.7 Lymphocytes % 25.4 Monocytes % 9.4 Eosinophils % 5.6 H D Basophils % 0.9 Nucleated RBC % 0 PT with INR INR Sodium 142 Potassium 4.0 Chloride 106 Carbon Dioxide 31 Anion Gap 6 L BUN 11.0 Creatinine 0.9 Est GFR (CKD-EPI)AfAm 79.42 Est GFR (CKD-EPI)NonAf 68.53 Random Glucose 113 H Calcium 8.9 Total Bilirubin 0.4 AST 14 L ALT 21 Alkaline Phosphatase 103 Creatine Kinase 58 Troponin I 0.11 H B-Natriuretic Peptide 1866.7 H Total Protein 7.5 Albumin 4.1 06/19/19 15:54 WBC RBC Hgb Hct MCV MCH MCHC RDW Plt Count MPV Absolute Neuts (auto) Neutrophils % Lymphocytes % Monocytes % Eosinophils % Basophils % Nucleated RBC % PT with INR 12.40 INR 1.05 Sodium Potassium Chloride Carbon Dioxide Anion Gap BUN Creatinine Est GFR (CKD-EPI)AfAm Est GFR (CKD-EPI)NonAf Random Glucose Calcium Total Bilirubin AST ALT Alkaline Phosphatase Creatine Kinase Troponin I B-Natriuretic Peptide Total Protein Albumin ASSESSMENT/PLAN: Problem List - Problem (1) NSTEMI (non-ST elevated myocardial infarction) Assessment/Plan: trop 0.11 initially, trend 2 more monitor on tele given asa 325 in ed continue with asa 81mg continue metoprolol 25 and lisinopril cardiology consulted and notified of admission no a/c per cardiology Code(s): I21.4 - NON-ST ELEVATION (NSTEMI) MYOCARDIAL INFARCTION (2) CHF (congestive heart failure) Assessment/Plan: per previous admission, had cath 08/2017 showing non obs cad. on furosemide prn per patient. on lisinopril and metoprolol monitor daily weights bnp 1800 Code(s): I50.9 - HEART FAILURE, UNSPECIFIED (3) Chest tightness Assessment/Plan: trop 0.11 initially, trend 2 more monitor on tele given asa 325 in ed continue with asa 81mg continue metoprolol 25 and lisinopril cardiology consulted and notified of admission Code(s): R07.89 - OTHER CHEST PAIN (4) HTN (hypertension) Assessment/Plan: elevated. on lisinopril and metoprolol Code(s): I10 - ESSENTIAL (PRIMARY) HYPERTENSION Qualifiers: Hypertension type: unspecified Qualified Code(s): I10 - Essential (primary ) hypertension (5) Asthma Assessment/Plan: not in exacerbation. continue home inhalers stable on room air. Code(s): J45.909 - UNSPECIFIED ASTHMA, UNCOMPLICATED (6) Prophylactic measure Assessment/Plan: fen cardiac diet heparin bid Code(s): Z29.9 - ENCOUNTER FOR PROPHYLACTIC MEASURES, UNSPECIFIED Visit type - Emergency Visit Emergency Visit: Yes ED Registration Date: 06/19/19 Care time: The patient presented to the Emergency Department on the above date and was hospitalized for further evaluation of their emergent condition. - New Patient This patient is new to me today: Yes Date on this admission: 06/19/19 - Critical Care Critical Care patient: No
[2019-06-19] MEDS ORDERED: AMOX TR/POT CLAV 500MG/125MG TABLETS (FP) ONE (20:19)
[2019-06-19] MEDS: AMOX TR/POT CLAV 500MG/125MG TABLETS (FP) PO SCH (20:23)
[2019-06-19] MEDS: metoPROLOL SUCCINATE 25 MG TAB.SR.24H (FP) PO SCH (20:23)
[2019-06-19] MEDS ORDERED: INSULIN (NOVOLOG) ASPART 100 UNITS/ML 10ML VIAL ONE (21:05)
[2019-06-19] MEDS: HEPARIN NA (PORCINE) 5,000 UNITS/ML 1ML VIAL SQ SCH (22:30)
[2019-06-19] MEDS: BUDESONIDE/FORMETEROL FUMARATE 80/4.5 mcg INHALER IH SCH (23:01)
[2019-06-20] MEDS ORDERED: PNEUMOC 13-VAL CONJ-DIP CRM/PF 0.5 ML DISP.SYRIN IM ONE (00:30)
--- NOTE | 2019-06-20 07:11 | CON.CARD ---
Consult Consult Specialty:: Cardiology Referred by:: Dr. Vines Reason for Consultation:: Chest pain and SOB - History of Present Illness Chief Complaint: Chest pain /SOB History of Present Illness: 63F with asthma, mod-severe MR, NICM (non-obstx CAD on cath 2016), chronic systolic CHF, chronically borderline elevated TnI admitted with sensation of "changed surroundings" - chest heaviness and mild SOB. No fever, chills, cough. Chest tightness different than usual asthma sx. No edema, PND, orthopnea. Denies wheezing. O2 97 RA Elevated BNP. Borderline TnI (similar to previous admissions), flat trend Normal CK. CXR congestive changes. ECG: LBBB, chronic. Echo in February 2019 here: severely reduced EF, moderate to severe MR - History Source History Provided By: Patient - Past Medical History Cardio/Vascular: Yes: CHF, HTN, Mitral Insufficiency, Other (LVD) Pulmonary: Yes: Asthma, Bronchitis, Pneumonia. No: Cancer, COPD, O2 Dependent, Previously Intubated, Pulmonary Embolus, Pulmonary Fibrosis Heme/Onc: No: Anemia, B12 Deficiency, Bleeding Disorder, Cancer, Current Chemotherapy, Current Radiation Therapy, Hemochromatosis, Hypercoaguable State, Myeloproliferative Synd, Sickle Cell Disease, Sickle Cell Trait, Thrombocytopenia, Other Infectious Disease: No: AIDS, C-Diff, Herpes Zoster, HIV, MRSA, STD's, Tuberculosis, VREF, Other Psych: No: Addictions, Anxiety, Bipolar, Depression, Panic, Psychosis, Schizophrenia, Other Musculoskeletal: No: Bursitis, Chronic low back pain, Hemiparesis, Hemiplegia, Osteoarthritis, Paraplegia, Other Rheumatology: No: Fibromyalgia, Gout, Lupus, Rheumatoid Arthritis, Sarcoidosis, Vasculitis, Other ENT: No: Allergic Rhinitis, Sinusitis, Other Endocrine: No: Starke's Disease, Eugene's Disease, Diabetes Insipidus, Diabetes Mellitus, Hyperparathyroidism, Hyperthyroidism, Hypothyroidism, Osteopenia, SIADH, Other Dermatology: No: Basal Cell, Cellulitis, Eczema, Melanoma, Psoriasis, Squamous Cell, Other - Past Surgical History Past Surgical History: Yes: Joint Replacement - Alcohol/Substance Use Hx Alcohol Use: No - Smoking History Smoking history: Former smoker Have you smoked in the past 12 months: No Aproximately how many cigarettes per day: 0 If you are a former smoker, when did you quit?: 40 - Social History ADL: Independent History of Recent Travel: Yes Home Medications - Allergies Allergies/Adverse Reactions: Allergies Allergy/AdvReac Type Severity Reaction Status Date / Time Sulfa (Sulfonamide Allergy Verified 06/19/19 15:40 Antibiotics) - Home Medications Home Medications: Ambulatory Orders Albuterol 0.083% Nebulizer Kristyn [Ventolin 0.083% Nebulizer Soln -] 1 neb NEB QID 02/25/19 Budesonide/Formeterol Fumarate [SYMBICORT 80/4.5mcg -] 2 puff IH BID #1 inhaler 02/27/19 Lisinopril [Prinivil] 20 mg PO DAILY #60 tablet 02/27/19 Amox-Tr/K Cl [Augmentin - 875Mg Tablet] 1 tab PO BID #6 tablet 03/07/19 Family Medical History Family History: Unremarkable Review of Systems - Review of Systems Constitutional: reports: No Symptoms Eyes: reports: No Symptoms HENT: reports: No Symptoms Neck: reports: No Symptoms Cardiovascular: reports: Chest Pain, Shortness of Breath Respiratory: reports: Exercise Intolerance, SOB Gastrointestinal: denies: No Symptoms, Abdominal Pain, Bloating, Constipation, Diarrhea, Dysphagia, Indigestion, Melena, Nausea, Rectal Bleeding, Vomiting, Vomiting Blood, Other Genitourinary: denies: No Symptoms, Burning, Discharge, Dysuria, Flank Pain, Frequency, Hematuria, Incontinence, Lesions, Menses, Pain, Testicular Mass, Testicular Pain, Testicular Swelling, Urgency, Vaginal Bleeding, Other Breasts: denies: No Symptoms Reported, See HPI, Breast Implants, Discharge from Nipple, Lumps, Pain, Skin Changes, Other Musculoskeletal: denies: No Symptoms, Back Pain, Crepitus, Decreased ROM, Extremity Pain, Joint Pain, Joint Swelling, Muscle Pain, Muscle Cramps, Muscle Weakness, Other Integumentary: denies: No Symptoms, Blister, Bruising, Change in Color, Eczema, Erythema, Incision, Lesions, Lump, Pallor, Pruritis, Rash, Wound, Other Neurological: denies: No Symptoms, Change in LOC, Change in Speech, Confusion, Dizziness, Headache, Incoordination, Numbness, Parasthesia, Pre-Existing Deficit , Seizure, Syncope, Tremors, Unsteady Gait, Weakness, Other Endocrine: denies: No Symptoms, Excessive Sweating, Flushing, Increased Hunger, Increased Thirst, Intolerance to Cold, Intolerance to Heat, Unexplained Weight Gain, Unexplained Weight Loss, Other Hematology/Lymphatic: denies: No Symptoms, Easily Bruised, Excessive Bleeding, Swollen Glands, Other Psychiatric: denies: No Symptoms, Altered Sleep Pattern, Anxiety, Depression, Hallucinations, Panic, Paranoia, Suicidal, Other - Risk Factors Known Risk Factors: Yes: Smoking Vital Signs: Vital Signs Temperature 98.6 F 06/20/19 06:00 Pulse Rate 61 06/20/19 06:00 Respiratory Rate 18 06/20/19 06:00 Blood Pressure 125/56 L 06/20/19 06:00 O2 Sat by Pulse Oximetry (%) 97 06/20/19 00:23 Constitutional: Yes: Calm Eyes: Yes: Conjunctiva Clear, EOM Intact Neck: Yes: Trachea Midline Respiratory: Yes: CTA Bilaterally (no rales or wheezing) Gastrointestinal: Yes: Soft, Abdomen, Obese Cardiovascular: Yes: Regular Rate and Rhythm JVD: No Carotid Bruit: No Heart Sounds: Yes: S1, S2 (rrr, 2/6 CHRISTOPHER apex) Musculoskeletal: Yes: WNL Extremities: Yes: WNL Edema: Yes Edema: LLE: 1+, RLE: 1+ Peripheral Pulses WNL: Yes Neurological: Yes: Alert, Oriented ...Motor Strength: WNL Psychiatric: No: Suicidal Ideation - Other Data Labs, Other Data: CBC, BMP 06/19/19 15:54 06/19/19 15:54 INR, PTT INR 1.05 (0.83-1.09) 06/19/19 15:54 Troponin, BNP 06/19/19 06/19/19 06/19/19 15:54 15:54 19:39 Troponin I 0.11 H 0.10 H B-Natriuretic Peptide 1866.7 H 06/20/19 03:00 Troponin I 0.10 H B-Natriuretic Peptide Troponin, BNP 06/19/19 06/19/19 06/19/19 15:54 15:54 19:39 Troponin I 0.11 H 0.10 H B-Natriuretic Peptide 1866.7 H 06/20/19 03:00 Troponin I 0.10 H B-Natriuretic Peptide Laboratory Tests 06/19/19 06/19/19 06/19/19 15:54 15:54 19:39 WBC Hgb Plt Count Sodium Potassium Creatinine Troponin I 0.11 H 0.10 H B-Natriuretic Peptide 1866.7 H TSH 06/20/19 06/20/19 06/20/19 03:00 08:18 08:18 WBC 5.2 Hgb 10.4 L Plt Count 187 Sodium 141 Potassium 4.0 Creatinine 0.7 Troponin I 0.10 H B-Natriuretic Peptide TSH 4.26 H NSR LBBB Echo: Pending Ejection Fraction %: LVEF < 40 % Imaging - Results Chest X-ray: Image Reviewed EKG: Image Reviewed Assessment/Plan IMP: Acute on chronic systolic CHF Non-ischemic CM with known severely reduced LVEF Moderate to severe MR Chronic Asthma Equivocal TnI, flat trend most likely c/w chronic CHF Atypical CP REC: 1. Telemetry for IV Lasix, daily weights and BMP to follow renal fx 2. Repeat echo to reassess MR 3. Borderline/equivocal TnI with flat trend likely due to mild acute on chronic systolic CHF; do not suspect ACS. 4. Continue BB, [id number] 5. Cont tele and assess clinical response to diuresis. 6. Outpt eval for ICD, although compliance/adherence to med regimen has been a limiting factor. 7. DVT prophylaxis
[2019-06-20 08:39] LABS: BASO % 0.4 % (0-2.0); EOS % 6.5 % (0-4.5); HEMOGLOBIN 10.4 GM/dL (10.7-15.3); LYMPH % 23.2 % (8-40); MCH 25.6 pg (25.7-33.7); MCHC 32.4 g/dl (32.0-36.0); MEAN PLT VOLUME 8.8 fl (7.5-11.1); MONO % 9.6 % (3.8-10.2); NEUT % 60.3 % (42.8-82.8); PLATELET COUNT 187 K/MM3 (134-434); RBC 4.05 M/mm3 (3.60-5.2); WHITE BLOOD COUNT 5.2 K/mm3 (4.0-10.0)
[2019-06-20 09:09] LABS: ALBUMIN 3.8 g/dl (3.4-5.0); BILIRUBIN,TOTAL 0.5 mg/dL (0.2-1); BLOOD UREA NITROGEN 10.2 mg/dL (7-18); CALCIUM 8.7 mg/dL (8.5-10.1); CREATININE 0.7 mg/dL (0.55-1.3); TOT PROT 6.7 g/dl (6.4-8.2)
[2019-06-20] MEDS ORDERED: PT OWN MED DRAWER 7, Y5N ONE ×3 (09:17→17:18)
[2019-06-20] MEDS: FUROSEMIDE 40 MG/4 ML INJECTABLE VIAL IVPUSH SCH (09:37)
[2019-06-20] MEDS: metoPROLOL SUCCINATE 25 MG TAB.SR.24H (FP) PO SCH (09:38)
[2019-06-20] MEDS: HEPARIN NA (PORCINE) 5,000 UNITS/ML 1ML VIAL SQ SCH ×2 (09:38→21:35)
[2019-06-20] MEDS: AMOX TR/POT CLAV 500MG/125MG TABLETS (FP) PO SCH ×3 (09:38→17:19)
[2019-06-20] MEDS: LISINOPRIL 20 MG TABLET (FP) PO SCH (09:38)
[2019-06-20] MEDS: ASPIRIN COATED 81 MG TABLET.EC PO SCH (09:38)
[2019-06-20] MEDS: BUDESONIDE/FORMETEROL FUMARATE 80/4.5 mcg INHALER IH SCH ×2 (09:51→21:35)
[2019-06-20] MEDS ORDERED: PNEUMOCOCCAL 23 VACCINE 0.5 ML VIAL IM ONE (10:00)
--- NOTE | 2019-06-20 10:57 | ECHO ---
Name: MOHAMUD HYLTON Exam:Adult Echocardiogram Study Date: 06/20/2019 08:11 AM Age: 63 yrs Reason For Study: severe mr,chf Height: 66 in Weight: 220 lb BSA: 2.1 m2 MMode/2D Measurements & Calculations IVSd: 0.84 cm Ao root diam: 3.7 cm LVIDd: 6.8 cm LA dimension: 5.3 cm LVIDs: 5.0 cm ACS: 1.3 cm LVPWd: 0.99 cm IVSs: 1.1 cm LVPWs: 1.3 cm EDV(Teich): 243.1 ml ESV(Teich): 116.9 ml EPSS: 1.4 cm LVOT diam: 2.0 cm Doppler Measurements & Calculations MV E max diogo: 104.4 cm/sec Ao V2 max: 205.7 cm/sec MV A max diogo: 84.9 cm/sec Ao max P.9 mmHg MV E/A: 1.2 Ao V2 mean: 144.4 cm/sec Ao mean P.3 mmHg Ao V2 VTI: 46.2 cm HANDY(I,D): 1.4 cm2 HANDY(V,D): 1.5 cm2 LV V1 max P.9 mmHg MR max diogo: 520.7 cm/sec LV V1 mean P.2 mmHg MR max P.5 mmHg LV V1 max: 99.2 cm/sec LV V1 mean: 70.1 cm/sec LV V1 VTI: 21.6 cm SV(LVOT): 65.9 ml TR max diogo: 286.9 cm/sec TR max P.2 mmHg Med Peak E' Diogo: 5.7 cm/sec Med E/e': 18.3 Lat Peak E' Diogo: 6.6 cm/sec Lat E/e': 15.9 Left Ventricle The left ventricle is moderately dilated. Ejection Fraction = 30-35%. There is severe global hypokine sis of the left ventricle. Right Ventricle The right ventricle is grossly normal size. The right ventricular systolic function is grossly normal . Atria The left atrium is moderately dilated. Right atrial size is normal. Mitral Valve The mitral valve is grossly normal. There is no mitral valve stenosis. There is moderate to severe mi tral regurgitation. Tricuspid Valve The tricuspid valve is not well visualized, but is grossly normal. There is moderate tricuspid regurg itation. Right ventricular systolic pressure is elevated at 30-40mmHg. Aortic Valve There is mild aortic sclerosis.;. No hemodynamically significant valvular aortic stenosis. No aortic regurgitation is present. Pulmonic Valve The pulmonic valve is not well seen, but is grossly normal. Mild pulmonic valvular regurgitation. Great Vessels The aortic root is normal size. Pericardium/Pleura There is no pericardial effusion. Interpretation Summary The left ventricle is moderately dilated. Ejection Fraction = 30-35%. There is severe global hypokinesis of the left ventricle. The left atrium is moderately dilated. There is moderate to severe mitral regurgitation. There is moderate tricuspid regurgitation. Right ventricular systolic pressure is elevated at 30-40mmHg. There is mild aortic sclerosis.; There is no pericardial effusion. MD Packer *Cristina 06/20/2019 10:56 AM
--- NOTE | 2019-06-20 12:22 | EKG ---
Test Reason : Blood Pressure : / mmHG Vent. Rate : 070 BPM Atrial Rate : 070 BPM P-R Int : 204 ms QRS Dur : 164 ms QT Int : 452 ms P-R-T Axes : 060 011 162 degrees QTc Int : 488 ms NORMAL SINUS RHYTHM POSSIBLE LEFT ATRIAL ENLARGEMENT LEFT BUNDLE BRANCH BLOCK ABNORMAL ECG WHEN COMPARED WITH ECG OF 01-MAR-2019 04:48, NO SIGNIFICANT CHANGE WAS FOUND Confirmed by ANDRADE HARO MD ([id number]) on 06/20/2019 12:22:12 PM Referred By: Confirmed By:ANDRADE HARO MD
--- NOTE | 2019-06-20 13:51 | PN ---
Physical Exam: SUBJECTIVE: Patient seen and examined at the bedside. denies shortness of breath, denies chest pain. OBJECTIVE: started on iv lasix troponins remained flat Vital Signs Period Temp Pulse Resp BP Sys/Gatica Pulse Ox Last 24 Hr 97.7 F-98.8 F 58-71 16-18 125-163/53-80 94-99 GENERAL: The patient is awake, alert, and fully oriented, in no acute distress. HEAD: Normal with no signs of trauma. EYES: PERRL, extraocular movements intact, sclera anicteric, conjunctiva clear. No ptosis. ENT: Ears normal, nares patent, oropharynx clear without exudates, moist mucous membranes. NECK: Trachea midline, full range of motion, supple. LUNGS: Breath sounds equal, clear to auscultation bilaterally, no wheezes, no crackles, no accessory muscle use. HEART: Regular rate and rhythm, S1, S2 without murmur, rub or gallop. ABDOMEN: Soft, nontender, nondistended, normoactive bowel sounds, no guarding, no rebound, no hepatosplenomegaly, no masses. EXTREMITIES: 2+ pulses, warm, well-perfused, no edema. NEUROLOGICAL: Normal speech, gait not observed. PSYCH: Normal mood, normal affect. SKIN: Warm, dry, normal turgor, no rashes or lesions noted Laboratory Results - last 24 hr 06/19/19 06/19/19 06/19/19 15:54 15:54 15:54 WBC 6.8 RBC 4.38 Hgb 11.1 Hct 34.8 MCV 79.4 L MCH 25.3 L MCHC 31.8 L RDW 17.0 H Plt Count 201 MPV 9.2 Absolute Neuts (auto) 4.0 Neutrophils % 58.7 Lymphocytes % 25.4 Monocytes % 9.4 Eosinophils % 5.6 H D Basophils % 0.9 Nucleated RBC % 0 PT with INR INR Sodium 142 Potassium 4.0 Chloride 106 Carbon Dioxide 31 Anion Gap 6 L BUN 11.0 Creatinine 0.9 Est GFR (CKD-EPI)AfAm 79.42 Est GFR (CKD-EPI)NonAf 68.53 Random Glucose 113 H Hemoglobin A1c % Calcium 8.9 Magnesium Total Bilirubin 0.4 AST 14 L ALT 21 Alkaline Phosphatase 103 Creatine Kinase 58 Troponin I 0.11 H B-Natriuretic Peptide 1866.7 H Total Protein 7.5 Albumin 4.1 Triglycerides Cholesterol Total LDL Cholesterol HDL Cholesterol TSH Free T4 06/19/19 06/19/19 06/20/19 15:54 19:39 03:00 WBC RBC Hgb Hct MCV MCH MCHC RDW Plt Count MPV Absolute Neuts (auto) Neutrophils % Lymphocytes % Monocytes % Eosinophils % Basophils % Nucleated RBC % PT with INR 12.40 INR 1.05 Sodium Potassium Chloride Carbon Dioxide Anion Gap BUN Creatinine Est GFR (CKD-EPI)AfAm Est GFR (CKD-EPI)NonAf Random Glucose Hemoglobin A1c % Calcium Magnesium Total Bilirubin AST ALT Alkaline Phosphatase Creatine Kinase Troponin I 0.10 H 0.10 H B-Natriuretic Peptide Total Protein Albumin Triglycerides Cholesterol Total LDL Cholesterol HDL Cholesterol TSH Free T4 0.85 06/20/19 06/20/19 06/20/19 08:18 08:18 08:18 WBC 5.2 RBC 4.05 Hgb 10.4 L Hct 32.0 L MCV 79.0 L MCH 25.6 L MCHC 32.4 RDW 17.0 H Plt Count 187 MPV 8.8 Absolute Neuts (auto) 3.1 Neutrophils % 60.3 Lymphocytes % 23.2 Monocytes % 9.6 Eosinophils % 6.5 H Basophils % 0.4 Nucleated RBC % 0 PT with INR INR Sodium 141 Potassium 4.0 Chloride 105 Carbon Dioxide 30 Anion Gap 6 L BUN 10.2 Creatinine 0.7 Est GFR (CKD-EPI)AfAm 107.62 Est GFR (CKD-EPI)NonAf 92.86 Random Glucose 97 Hemoglobin A1c % 5.8 Calcium 8.7 Magnesium 2.0 Total Bilirubin 0.5 AST 12 L ALT 18 Alkaline Phosphatase 96 Creatine Kinase Troponin I B-Natriuretic Peptide Total Protein 6.7 Albumin 3.8 Triglycerides 58 Cholesterol 144 Total LDL Cholesterol 85 HDL Cholesterol 47 TSH 4.26 H Free T4 Active Medications Generic Name Dose Route Start Last Admin Trade Name Freq PRN Reason Stop Dose Admin Amoxicillin/Clavulanate Potassium 1 tab 06/19/19 20:00 06/20/19 12:52 Augmentin - 500mg Tablet PO 1 tab TIDCM IDALIA Administration Aspirin 81 mg 06/20/19 10:00 06/20/19 09:38 Ecotrin - PO 81 mg DAILY IDALIA Administration Budesonide/Formoterol Fumarate 2 puff 06/19/19 22:00 06/20/19 09:51 Symbicort 80/4.5mcg - IH Not Given BID IDALIA Furosemide 40 mg 06/20/19 10:00 06/20/19 09:37 Lasix Injection - IVPUSH 40 mg DAILY IDALIA Administration Heparin Sodium (Porcine) 5,000 unit 06/19/19 22:00 06/20/19 09:38 Heparin - SQ 5,000 unit BID IDALIA Administration Lisinopril 20 mg 06/20/19 10:00 06/20/19 09:38 Prinivil PO 20 mg DAILY IDALIA Administration Metoprolol Succinate 25 mg 06/19/19 18:45 06/20/19 09:38 Toprol Xl - PO 25 mg DAILY IDALIA Administration ASSESSMENT/PLAN: Problem List - Problems (1) CHF (congestive heart failure) Assessment/Plan: per previous admission, had cath 08/2017 showing non obs cad. on lisinopril and metoprolol monitor daily weights started on lasix iv daily patient consuming large amts of salt per significant other dietary teaching ordered bnp 1800 Code(s): I50.9 - HEART FAILURE, UNSPECIFIED (2) Chest tightness Assessment/Plan: trop 0.11, 0.10,0.10 monitor on tele continue with asa 81mg continue metoprolol 25 and lisinopril cardiology consulted and following Code(s): R07.89 - OTHER CHEST PAIN (3) HTN (hypertension) Assessment/Plan: better controlled on lisinopril and metoprolol Code(s): I10 - ESSENTIAL (PRIMARY) HYPERTENSION Qualifiers: Hypertension type: unspecified Qualified Code(s): I10 - Essential (primary ) hypertension (4) Asthma Assessment/Plan: not in exacerbation. continue home inhalers stable on room air. Code(s): J45.909 - UNSPECIFIED ASTHMA, UNCOMPLICATED (5) Obesity Assessment/Plan: bmi 33.5 with heart disease weight loss encouraged dietary consult Code(s): E66.9 - OBESITY, UNSPECIFIED (6) Prophylactic measure Assessment/Plan: fen cardiac diet heparin bid Code(s): Z29.9 - ENCOUNTER FOR PROPHYLACTIC MEASURES, UNSPECIFIED Visit type - Emergency Visit Emergency Visit: Yes ED Registration Date: 06/19/19 Care time: The patient presented to the Emergency Department on the above date and was hospitalized for further evaluation of their emergent condition. - New Patient This patient is new to me today: No - Critical Care Critical Care patient: No - Discharge Referral Referred to [facility] No
--- NOTE | 2019-06-21 06:49 | PN ---
Progress Note, Physician Chief Complaint: feeling better Denies CP Ambulating No SOB this AM TELE: NSR, LBBB, no arrhythmias. - Current Medication List Current Medications: Active Medications Amoxicillin/Clavulanate Potassium (Augmentin - 500mg Tablet) 1 tab PO TIDCM [facility] Last Admin: 06/20/19 17:19 Dose: 1 tab Aspirin (Ecotrin -) 81 mg PO DAILY [facility] Last Admin: 06/20/19 09:38 Dose: 81 mg Budesonide/Formoterol Fumarate (Symbicort 80/4.5mcg -) 2 puff IH BID [facility] Last Admin: 06/20/19 21:35 Dose: Not Given Furosemide (Lasix Injection -) 40 mg IVPUSH DAILY [facility] Last Admin: 06/20/19 09:37 Dose: 40 mg Heparin Sodium (Porcine) (Heparin -) 5,000 unit SQ BID [facility] Last Admin: 06/20/19 21:35 Dose: 5,000 unit Lisinopril (Prinivil) 20 mg PO DAILY [facility] Last Admin: 06/20/19 09:38 Dose: 20 mg Metoprolol Succinate (Toprol Xl -) 25 mg PO DAILY [facility] Last Admin: 06/20/19 09:38 Dose: 25 mg - Objective Vital Signs: Vital Signs Temperature 98.1 F 06/21/19 06:00 Pulse Rate 57 L 06/21/19 06:00 Respiratory Rate 18 06/21/19 06:00 Blood Pressure 124/66 06/21/19 06:00 O2 Sat by Pulse Oximetry (%) 95 06/20/19 21:00 Constitutional: Yes: No Distress, Calm Cardiovascular: Yes: Regular Rate and Rhythm Respiratory: Yes: CTA Bilaterally Gastrointestinal: Yes: Soft, Abdomen, Obese Edema: No Neurological: Yes: Alert, Oriented ...Motor Strength: WNL Labs: CBC, BMP 06/20/19 08:18 06/20/19 08:18 INR, PTT INR 1.05 (0.83-1.09) 06/19/19 15:54 Laboratory Tests 06/19/19 06/19/19 06/20/19 15:54 19:39 03:00 WBC Hgb Plt Count Sodium Potassium BUN Creatinine Troponin I 0.11 H 0.10 H 0.10 H TSH 06/20/19 06/20/19 08:18 08:18 WBC 5.2 Hgb 10.4 L Plt Count 187 Sodium 141 Potassium 4.0 BUN 10.2 Creatinine 0.7 Troponin I TSH 4.26 H - ....Imaging EKG: Image Reviewed Assessment/Plan IMP: Acute on chronic systolic CHF, improved. Non-ischemic CM with known severely reduced LVEF, LBBB (no sig CAD cath 2016) Moderate to severe MR on echo (mild to mod on cMRI) Chronic Asthma Equivocal TnI, flat trend most likely c/w chronic CHF; do not suspect ACS Atypical CP REC: 1. All presenting sx resolved with IV lasix indicating that all was most likely secondary to mild acute on chronic systolic CHF/increased EDP. She had been taking Lasix only intermittently at home. 2. Continue Toprol and Lisinopril. 3. Planned for outpatient [facility]V ICD at [facility]. 4. Plan to convert to PO Lasix 06/22 and for tentative d/c Sunday evening vs Sunday AM w/ outpt cards f/u.
--- NOTE | 2019-06-21 08:23 | PN ---
Physical Exam: SUBJECTIVE: Patient seen and examined. Patient denies chest pain or shortness of breath. OBJECTIVE: monitor technician: SB 57 Period Temp Pulse Resp BP Sys/Gatica Pulse Ox Last 24 Hr 97.7 F-99.2 F 57-65 18-18 122-140/59-80 94-95 GENERAL: The patient is awake, alert, and fully oriented, in no acute distress. HEAD: Normal with no signs of trauma. EYES: PERRL, extraocular movements intact, sclera anicteric, conjunctiva clear. No ptosis. ENT: Ears normal, nares patent, oropharynx clear without exudates, moist mucous membranes. NECK: Trachea midline, full range of motion, supple. LUNGS: no accessory muscle use. HEART: Regular rate and rhythm, S1, S2 without murmur, rub or gallop. ABDOMEN: Soft, nontender, nondistended, normoactive bowel sounds, no guarding, no rebound, no hepatosplenomegaly, no masses. EXTREMITIES: 2+ pulses, warm, well-perfused, no edema. NEUROLOGICAL: Normal speech, gait not observed. PSYCH: Normal mood, normal affect. SKIN: Warm, dry, normal turgor, no rashes or lesions noted Laboratory Results - last 24 hr 06/20/19 06/20/19 06/20/19 03:00 08:18 08:18 WBC 5.2 RBC 4.05 Hgb 10.4 L Hct 32.0 L MCV 79.0 L MCH 25.6 L MCHC 32.4 RDW 17.0 H Plt Count 187 MPV 8.8 Absolute Neuts (auto) 3.1 Neutrophils % 60.3 Lymphocytes % 23.2 Monocytes % 9.6 Eosinophils % 6.5 H Basophils % 0.4 Nucleated RBC % 0 Sodium 141 Potassium 4.0 Chloride 105 Carbon Dioxide 30 Anion Gap 6 L BUN 10.2 Creatinine 0.7 Est GFR (CKD-EPI)AfAm 107.62 Est GFR (CKD-EPI)NonAf 92.86 Random Glucose 97 Hemoglobin A1c % Calcium 8.7 Magnesium 2.0 Total Bilirubin 0.5 AST 12 L ALT 18 Alkaline Phosphatase 96 Troponin I 0.10 H Total Protein 6.7 Albumin 3.8 Triglycerides 58 Cholesterol 144 Total LDL Cholesterol 85 HDL Cholesterol 47 TSH 4.26 H Free T4 0.85 06/20/19 08:18 WBC RBC Hgb Hct MCV MCH MCHC RDW Plt Count MPV Absolute Neuts (auto) Neutrophils % Lymphocytes % Monocytes % Eosinophils % Basophils % Nucleated RBC % Sodium Potassium Chloride Carbon Dioxide Anion Gap BUN Creatinine Est GFR (CKD-EPI)AfAm Est GFR (CKD-EPI)NonAf Random Glucose Hemoglobin A1c % 5.8 Calcium Magnesium Total Bilirubin AST ALT Alkaline Phosphatase Troponin I Total Protein Albumin Triglycerides Cholesterol Total LDL Cholesterol HDL Cholesterol TSH Free T4 Active Medications Generic Name Dose Route Start Last Admin Trade Name Freq PRN Reason Stop Dose Admin Amoxicillin/Clavulanate Potassium 1 tab 06/19/19 20:00 06/20/19 17:19 Augmentin - 500mg Tablet PO 1 tab TIDCM IDALIA Administration Aspirin 81 mg 06/20/19 10:00 06/20/19 09:38 Ecotrin - PO 81 mg DAILY IDALIA Administration Budesonide/Formoterol Fumarate 2 puff 06/19/19 22:00 06/20/19 21:35 Symbicort 80/4.5mcg - IH Not Given BID DIALIA Furosemide 40 mg 06/20/19 10:00 06/20/19 09:37 Lasix Injection - IVPUSH 40 mg DAILY IDALIA Administration Heparin Sodium (Porcine) 5,000 unit 06/19/19 22:00 06/20/19 21:35 Heparin - SQ 5,000 unit BID IDALIA Administration Lisinopril 20 mg 06/20/19 10:00 06/20/19 09:38 Prinivil PO 20 mg DAILY IDALIA Administration Metoprolol Succinate 25 mg 06/19/19 18:45 06/20/19 09:38 Toprol Xl - PO 25 mg DAILY IDALIA Administration ASSESSMENT/PLAN: Problem List - Problems (1) CHF (congestive heart failure) Assessment/Plan: per previous admission, had cath 08/2017 showing non obs cad. on lisinopril and metoprolol monitor daily weights started on lasix iv daily, cardiology to convert to PO on d/c patient consuming large amts of salt per significant other dietary teaching ordered bnp 1800 Code(s): I50.9 - HEART FAILURE, UNSPECIFIED (2) Chest tightness Assessment/Plan: resolved trop 0.11, 0.10,0.10 monitor on tele no chest pain, no shortness of breath, comfortable continue with asa 81mg continue metoprolol 25 and lisinopril cardiology consulted and following Code(s): R07.89 - OTHER CHEST PAIN (3) HTN (hypertension) Assessment/Plan: better controlled on lisinopril and metoprolol Code(s): I10 - ESSENTIAL (PRIMARY) HYPERTENSION Qualifiers: Hypertension type: unspecified Qualified Code(s): I10 - Essential (primary ) hypertension (4) Asthma Assessment/Plan: not in exacerbation. continue home inhalers stable on room air. Code(s): J45.909 - UNSPECIFIED ASTHMA, UNCOMPLICATED (5) Obesity Assessment/Plan: bmi 33.5 with heart disease weight loss encouraged dietary consult Code(s): E66.9 - OBESITY, UNSPECIFIED (6) Prophylactic measure Assessment/Plan: fen cardiac diet heparin bid Code(s): Z29.9 - ENCOUNTER FOR PROPHYLACTIC MEASURES, UNSPECIFIED Visit type - Emergency Visit Emergency Visit: Yes ED Registration Date: 06/19/19 Care time: The patient presented to the Emergency Department on the above date and was hospitalized for further evaluation of their emergent condition. - New Patient This patient is new to me today: No - Critical Care Critical Care patient: No - Discharge Referral Referred to [facility] No
[2019-06-21 09:23] LABS: BASO % 0.5 % (0-2.0); EOS % 5.3 % (0-4.5); HEMATOCRIT 34.1 % (32.4-45.2); LYMPH % 23.8 % (8-40); MCH 25.8 pg (25.7-33.7); MCHC 32.2 g/dl (32.0-36.0); MEAN PLT VOLUME 9.3 fl (7.5-11.1); MONO % 10.1 % (3.8-10.2); NEUT % 60.3 % (42.8-82.8); PLATELET COUNT 208 K/MM3 (134-434); RBC 4.26 M/mm3 (3.60-5.2); RDW 16.9 % (11.6-15.6); WHITE BLOOD COUNT 5.5 K/mm3 (4.0-10.0)
[2019-06-21 09:49] LABS: BILIRUBIN,TOTAL 0.7 mg/dL (0.2-1); BLOOD UREA NITROGEN 12.1 mg/dL (7-18); CALCIUM 8.9 mg/dL (8.5-10.1); CREATININE 0.7 mg/dL (0.55-1.3); MAGNESIUM 2.2 mg/dL (1.8-2.4); POTASSIUM 4.1 mmol/L (3.5-5.1); TOT PROT 7.1 g/dl (6.4-8.2)
[2019-06-21] MEDS: LISINOPRIL 20 MG TABLET (FP) PO SCH (10:07)
[2019-06-21] MEDS: metoPROLOL SUCCINATE 25 MG TAB.SR.24H (FP) PO SCH (10:07)
[2019-06-21] MEDS: ASPIRIN COATED 81 MG TABLET.EC PO SCH (10:07)
[2019-06-21] MEDS: FUROSEMIDE 40 MG/4 ML INJECTABLE VIAL IVPUSH SCH (10:17)
[2019-06-21] MEDS: HEPARIN NA (PORCINE) 5,000 UNITS/ML 1ML VIAL SQ SCH ×2 (10:17→21:19)
[2019-06-21] MEDS ORDERED: PT OWN MED DRAWER 7, Y5N ONE ×3 (10:20→18:41)
[2019-06-21] MEDS: AMOX TR/POT CLAV 500MG/125MG TABLETS (FP) PO SCH ×3 (10:21→17:31)
[2019-06-21] MEDS: BUDESONIDE/FORMETEROL FUMARATE 80/4.5 mcg INHALER IH SCH ×2 (10:48→21:19)
[2019-06-21] MEDS ORDERED: POLYETHYLENE GLYCOL 3350 119 GM BTL PO ONE (15:19)
[2019-06-21] MEDS: DOCUSATE SODIUM 100 MG CAPSULE (FP) PO SCH ×2 (15:37→21:19)
[2019-06-22] MEDS: DOCUSATE SODIUM 100 MG CAPSULE (FP) PO SCH (05:43)
[2019-06-22 06:28] LABS: ALBUMIN 3.7 g/dl (3.4-5.0); BILIRUBIN,TOTAL 0.5 mg/dL (0.2-1); BLOOD UREA NITROGEN 12.3 mg/dL (7-18); CALCIUM 8.6 mg/dL (8.5-10.1); CREATININE 0.7 mg/dL (0.55-1.3); MAGNESIUM 2.1 mg/dL (1.8-2.4); POTASSIUM 4.2 mmol/L (3.5-5.1); TOT PROT 6.7 g/dl (6.4-8.2)
[2019-06-22 06:33] LABS: BASO % 0.4 % (0-2.0); EOS % 4.2 % (0-4.5); HEMATOCRIT 33.6 % (32.4-45.2); HEMOGLOBIN 10.9 GM/dL (10.7-15.3); LYMPH % 23.4 % (8-40); MCH 25.8 pg (25.7-33.7); MCHC 32.5 g/dl (32.0-36.0); MEAN CELL VOLUME 79.3 fl (80-96); MEAN PLT VOLUME 8.8 fl (7.5-11.1); MONO % 10.3 % (3.8-10.2); NEUT % 61.7 % (42.8-82.8); PLATELET COUNT 187 K/MM3 (134-434); RBC 4.24 M/mm3 (3.60-5.2); RDW 16.6 % (11.6-15.6)
--- NOTE | 2019-06-22 08:28 | PN ---
Progress Note, Physician Chief Complaint: feeling "much better" Walking around room, no chest pain > 48 hours TELE: NSR, LBBB, no sig arrhythmias - Current Medication List Current Medications: Active Medications Amoxicillin/Clavulanate Potassium (Augmentin - 500mg Tablet) 1 tab PO TIDCM [facility] Last Admin: 06/21/19 17:31 Dose: 1 tab Aspirin (Ecotrin -) 81 mg PO DAILY [facility] Last Admin: 06/21/19 10:07 Dose: 81 mg Budesonide/Formoterol Fumarate (Symbicort 80/4.5mcg -) 2 puff IH BID [facility] Last Admin: 06/21/19 21:19 Dose: Not Given Docusate Sodium (Colace -) 100 mg PO TID [facility] Last Admin: 06/22/19 05:43 Dose: 100 mg Furosemide (Lasix Injection -) 40 mg IVPUSH DAILY [facility] Last Admin: 06/21/19 10:17 Dose: 40 mg Heparin Sodium (Porcine) (Heparin -) 5,000 unit SQ BID [facility] Last Admin: 06/21/19 21:19 Dose: 5,000 unit Lisinopril (Prinivil) 20 mg PO DAILY [facility] Last Admin: 06/21/19 10:07 Dose: 20 mg Metoprolol Succinate (Toprol Xl -) 25 mg PO DAILY [facility] Last Admin: 06/21/19 10:07 Dose: 25 mg - Objective Vital Signs: Vital Signs Temperature 98.3 F 06/22/19 06:00 Pulse Rate 64 06/22/19 06:00 Respiratory Rate 18 06/22/19 06:00 Blood Pressure 111/68 06/22/19 06:00 O2 Sat by Pulse Oximetry (%) 98 06/21/19 21:00 Constitutional: Yes: No Distress, Calm Eyes: Yes: Conjunctiva Clear Cardiovascular: Yes: Regular Rate and Rhythm Respiratory: Yes: CTA Bilaterally Gastrointestinal: Yes: Soft, Abdomen, Obese Edema: No Peripheral Pulses WNL: Yes Neurological: Yes: Alert, Oriented Labs: CBC, BMP 06/22/19 05:24 06/22/19 05:24 INR, PTT INR 1.05 (0.83-1.09) 06/19/19 15:54 - ....Imaging EKG: Image Reviewed Assessment/Plan IMP: Acute on chronic systolic CHF, improved. Non-ischemic CM with known severely reduced LVEF, LBBB (no sig CAD cath 2016) Moderate to severe MR on echo (mild to mod on cMRI) Chronic Asthma Equivocal TnI, flat trend most likely c/w chronic CHF; do not suspect ACS Atypical CP REC: 1. All presenting sx resolved with IV lasix indicating that this was most likely secondary to mild acute on chronic systolic CHF/increased EDP. She had been taking Lasix only intermittently at home. 2. Continue Toprol and Lisinopril. 3. Planned for outpatient biV ICD at [facility]. 4. Switch to PO Lasix; lytes are WNL; no arrhythmias. May d/c tele. Discharge planning for later today if remains stable/asx or early AM. Outpt f/u w/ Dr. Shaw 1 week/ plan to f/u w/ Dr. Todd (EP) as outlined.
[2019-06-22] MEDS ORDERED: PT OWN MED DRAWER 7, Y5N ONE ×2 (08:49→09:04)
[2019-06-22] MEDS: ASPIRIN COATED 81 MG TABLET.EC PO SCH (09:13)
[2019-06-22] MEDS: AMOX TR/POT CLAV 500MG/125MG TABLETS (FP) PO SCH ×2 (09:13→13:03)
[2019-06-22] MEDS: LISINOPRIL 20 MG TABLET (FP) PO SCH (09:13)
[2019-06-22] MEDS: metoPROLOL SUCCINATE 25 MG TAB.SR.24H (FP) PO SCH (09:13)
[2019-06-22] MEDS: FUROSEMIDE 40 MG/4 ML INJECTABLE VIAL IVPUSH SCH (09:14)
[2019-06-22] MEDS: HEPARIN NA (PORCINE) 5,000 UNITS/ML 1ML VIAL SQ SCH (09:14)
[2019-06-22] MEDS: BUDESONIDE/FORMETEROL FUMARATE 80/4.5 mcg INHALER IH SCH (09:14)
--- NOTE | 2019-06-22 13:05 | DS ---
Physical Exam: SUBJECTIVE: Patient seen and examined at the bedside. ambulating around room, in no acute distress. no shortness of breath. wants to go home. she will f/u up outpatient with Dr. Shaw regarding ICD placement. OBJECTIVE: Patient is a 63 year old female with a significant past medical history of asthma, mod-severe MR, NICM (non-obstx CAD on cath 2016), chronic systolic CHF who came to [facility] on 06/19/2019 with c/o of chest pain accompanied with shortness of breath. During hospital stay, her troponins were mildly elevated and she was monitored on cardiac unit. She has been seen and evaluated by a commercial loan reviewer and diagnosed with acute on chronic systolic diastolic heart failure. She has been maintained on her home metoprolol and lisinopril and IV lasix was started. She will be converted to lasix 40mg PO once per day with close cardiology follow up. Vital Signs Period Temp Pulse Resp BP Sys/Gatica Pulse Ox Last 24 Hr 98.0 F-99.4 F 58-68 16-20 110-129/45-69 98 PHYSICAL EXAM GENERAL: The patient is awake, alert, and fully oriented, in no acute distress. HEAD: Normal with no signs of trauma. EYES: PERRL, extraocular movements intact, sclera anicteric, conjunctiva clear. No ptosis. ENT: Ears normal, nares patent, oropharynx clear without exudates, moist mucous membranes. NECK: Trachea midline, full range of motion, supple. LUNGS: no accessory muscle use. HEART: Regular rate and rhythm, S1, S2 without murmur, rub or gallop. ABDOMEN: Soft, nontender, nondistended, normoactive bowel sounds, no guarding, no rebound, no hepatosplenomegaly, no masses. EXTREMITIES: 2+ pulses, warm, well-perfused, no edema. NEUROLOGICAL: Normal speech, gait not observed. PSYCH: Normal mood, normal affect. SKIN: Warm, dry, normal turgor, no rashes or lesions noted LABS Laboratory Results - last 24 hr 06/22/19 06/22/19 05:24 05:24 WBC 6.0 RBC 4.24 Hgb 10.9 Hct 33.6 MCV 79.3 L MCH 25.8 MCHC 32.5 RDW 16.6 H Plt Count 187 MPV 8.8 Absolute Neuts (auto) 3.7 Neutrophils % 61.7 Lymphocytes % 23.4 Monocytes % 10.3 H Eosinophils % 4.2 Basophils % 0.4 Nucleated RBC % 0 Sodium 141 Potassium 4.2 Chloride 104 Carbon Dioxide 30 Anion Gap 8 BUN 12.3 Creatinine 0.7 Est GFR (CKD-EPI)AfAm 107.62 Est GFR (CKD-EPI)NonAf 92.86 Random Glucose 121 H Calcium 8.6 Magnesium 2.1 Total Bilirubin 0.5 AST 11 L ALT 18 Alkaline Phosphatase 94 Total Protein 6.7 Albumin 3.7 HOSPITAL COURSE: Date of Admission:06/19/19 Date of Discharge: 06/22/19 Minutes to complete discharge: 45 Discharge Summary Problems reviewed: Yes Reason For Visit: CHF Current Active Problems Asthma (Acute) Chest tightness (Acute) HTN (hypertension) (Acute) NSTEMI (non-ST elevated myocardial infarction) (Acute) Prophylactic measure (Acute) Condition: Stable - Instructions Diet, Activity, Other Instructions: Mrs Trevino: You were admitted for acute on chronic congestive heart failure. What is acute on chronic congestive heart failure? heart failure is the inability of the heart to pump enough blood to serve the body's needs. Chronic heart failure develops slowly. The term "acute" is used to mean a rapid onset and "chronic" refers to a long duration. Heart failure occurs when the amount of blood being pumped out of the heart is less than the body needs. A reduced ejection fraction can happen because the left ventricle is enlarged and cannot pump normally. How is heart failure treated? Continue taking the Lasix 40mg daily, Metoprolol 25mg daily and the Lisinopril. You will need to follow up with Dr. Shaw in 1 week to plan outpatient follow up with Dr. Todd as you may need a biventricular ICD. A biventricular pacemaker with and ICD is a small device that helps your heart pump normally and helps you from dangerous heart rhythms. New medications: Start to take Lasix 40mg ONCE per day. This medication is a diuretic and helps your body remove more water and salt from your body. I have called in 90 pills to your pharmacy, please obtain refills from your PCP. You will need to have your blood work repeated to make sure that your electrolytes remains stable as lasix can deplete your potassium in your blood as well as magnesium. Take Aspirin 81mg daily Thank you for allowing us to care for you. If you have any questions about your hospitalization. Please call me. Heather Vines Turner [employer] [phone] [facility] Referrals: Luz Marina Shaw MD [Staff Physician] - Disposition: HOME - Home Medications Comprehensive Discharge Medication List: Ambulatory Orders Albuterol 0.083% Nebulizer Kristyn [Ventolin 0.083% Nebulizer Soln -] 1 neb NEB QID 02/25/19 Budesonide/Formeterol Fumarate [SYMBICORT 80/4.5mcg -] 2 puff IH BID #1 inhaler 02/27/19 Lisinopril [Prinivil] 20 mg PO DAILY #60 tablet 02/27/19 Amox-Tr/K Cl [Augmentin 875-125mg Tablet -] 1 tab PO BID #6 tablet 03/07/19 Amox-Tr/K Cl [Augmentin 500-125mg Tablet -] 1 tab PO TIDCM tablet 06/22/19 Aspirin Coated [Ecotrin -] 81 mg PO DAILY tablet.ec 06/22/19 Furosemide [Lasix -] 40 mg PO DAILY #90 tablet 06/22/19 Metoprolol Succinate [Toprol XL -] 25 mg PO DAILY tab.sr.24h 06/22/19 Problem List - Problems (1) CHF (congestive heart failure) Assessment/Plan: per previous admission, had cath 08/2017 showing non obs cad. on lisinopril 20, metoprolol 25 and lasix 40 PO once daily patient to f/o up with Dr. Shaw and Dr. Todd for possible ICD placement. Code(s): I50.9 - HEART FAILURE, UNSPECIFIED (2) Chest tightness Assessment/Plan: resolved, tolerating trop 0.11, 0.10,0.10 monitor on tele no chest pain, no shortness of breath, comfortable on room air, no dyspnea with ambulation. continue with asa 81mg, continue metoprolol 25 and lisinopril cardiology consulted and following Code(s): R07.89 - OTHER CHEST PAIN (3) HTN (hypertension) Assessment/Plan: better controlled on lisinopril and metoprolol Code(s): I10 - ESSENTIAL (PRIMARY) HYPERTENSION Qualifiers: Hypertension type: unspecified Qualified Code(s): I10 - Essential (primary ) hypertension (4) Asthma Assessment/Plan: not in exacerbation. continue home inhalers stable on room air. Code(s): J45.909 - UNSPECIFIED ASTHMA, UNCOMPLICATED (5) Obesity Assessment/Plan: bmi 33.5 with heart disease weight loss encouraged dietary consult Code(s): E66.9 - OBESITY, UNSPECIFIED (6) Prophylactic measure Assessment/Plan: discharge home Code(s): Z29.9 - ENCOUNTER FOR PROPHYLACTIC MEASURES, UNSPECIFIED This patient is new to me today: No Emergency Visit: Yes ED Registration Date: 06/19/19 Care time: The patient presented to the Emergency Department on the above date and was hospitalized for further evaluation of their emergent condition. Critical Care patient: No - Discharge Referral Referred to [facility] Med P.C.: No
[2019-06-22 13:54] VITALS: BP 127/63; PULSE 60; TEMP 98
[2019-06-23] MEDS ORDERED: FUROSEMIDE 40 MG TABLET (FP) PO SCH (10:00)
== END 2019-06-22 14:58 | disposition home or self-care (01) | DRG 282 ==
LOC: JER 15:28 → JERBED 16:58 → J4S 20:40
PROVIDERS: ADMIT Internal Medicine; ATTEND Nurse Practitioner Family
DX: I11.0 Hypertensive heart disease with heart failure (principal); I21.4 Non-ST elevation (NSTEMI) myocardial infarction; I50.33 Acute on chronic diastolic (congestive) heart failure; I42.8 Other cardiomyopathies; I25.10 Atherosclerotic heart disease of native coronary artery without angina pectoris; D64.9 Anemia, unspecified; J44.9 Chronic obstructive pulmonary disease, unspecified; J45.909 Unspecified asthma, uncomplicated; I34.0 Nonrheumatic mitral (valve) insufficiency; I44.7 Left bundle-branch block, unspecified; E66.9 Obesity, unspecified; Z68.33 Body mass index [BMI] 33.0-33.9, adult; Z29.9 Encounter for prophylactic measures, unspecified; Z95.5 Presence of coronary angioplasty implant and graft
CPT/HCPCS: 36415; 71045-TC-FY; 80053; 80061; 82550; 83036; 83721; 83735; 83880; 84439; 84443; 84484; 85025; 85610; 90732; 93005; 93010; 93306-TC; 99284-25; G0009; J1644

== ENCOUNTER 2019-07-23 11:01 | Observation (INO) | payer OTHER ==
[2019-07-23 11:13] VITALS: BMI 35.2
--- NOTE | 2019-07-23 11:40 | EKG ---
Test Reason : Blood Pressure : / mmHG Vent. Rate : 066 BPM Atrial Rate : 066 BPM P-R Int : 208 ms QRS Dur : 162 ms QT Int : 428 ms P-R-T Axes : 062 019 229 degrees QTc Int : 448 ms NORMAL SINUS RHYTHM POSSIBLE LEFT ATRIAL ENLARGEMENT LEFT BUNDLE BRANCH BLOCK ABNORMAL ECG WHEN COMPARED WITH ECG OF 19-JUN-2019 15:35, NO SIGNIFICANT CHANGE WAS FOUND Confirmed by ANNAMARIE BEVERLY, AB ([id number]) on 07/23/2019 11:39:43 AM Referred By: Confirmed By:AB DE LUNA MD
[2019-07-23] MEDS ORDERED: ASPIRIN 325 MG TABLET PO ONE (13:00)
[2019-07-23 13:13] LABS: BASO % 0.9 % (0-2.0); EOS % 3.3 % (0-4.5); HEMATOCRIT 37.6 % (32.4-45.2); LYMPH % 25.2 % (8-40); MCH 25.4 pg (25.7-33.7); MCHC 31.9 g/dl (32.0-36.0); MEAN CELL VOLUME 79.6 fl (80-96); MEAN PLT VOLUME 9.7 fl (7.5-11.1); MONO % 9.5 % (3.8-10.2); NEUT % 61.1 % (42.8-82.8); PLATELET COUNT 240 K/MM3 (134-434); RBC 4.72 M/mm3 (3.60-5.2); RDW 16.7 % (11.6-15.6); WHITE BLOOD COUNT 7.2 K/mm3 (4.0-10.0)
[2019-07-23] MEDS ORDERED: ASPIRIN 325 MG ENTERIC COATED TABLET (FP) ONE (13:13)
--- NOTE | 2019-07-23 13:20 | PDOC ---
Documentation entered by Bud Quinteros SCRIBE, acting as scribe for Kaylee Ward MD. Kaylee Ward MD: This documentation has been prepared by the sarabjiteAldair Elijah, SCRIBE, under my direction and personally reviewed by me in its entirety. I confirm that the documentation accurately reflects all work, treatment, procedures, and medical decision making performed by me. History of Present Illness - General Chief Complaint: Chest Pain Stated Complaint: SOB/ CHF History Source: Patient Exam Limitations: No Limitations - History of Present Illness Initial Comments: 07/23/19 12:59 Patient is a 65 year old female with a significant PMH of Non-Ischemic Heart Failure (Heart rate at 30%) who presents today with worsening SOB/Fatigue and intermittent Chest Pain described as tightness that began yesterday. Patient reports that she was sitting at her desk when her symptoms occurred and she began to feel increasingly Lightheaded almost to the point of "passing out." Patient associates cough and nausea. Of note patient will have her pacemaker placed next Sunday. Denies Vomiting. Allergies: Sulfa PCP: Dr. Berrios Cardiologists: Dr. Tolentino Past History - Past Medical History Allergies/Adverse Reactions: Allergies Allergy/AdvReac Type Severity Reaction Status Date / Time Sulfa (Sulfonamide Allergy Verified 07/23/19 11:13 Antibiotics) Home Medications: Ambulatory Orders Albuterol 0.083% Nebulizer Kristyn [Ventolin 0.083% Nebulizer Soln -] 1 neb NEB QID 02/25/19 Budesonide/Formeterol Fumarate [SYMBICORT 80/4.5mcg -] 2 puff IH BID #1 inhaler 02/27/19 Furosemide [Lasix -] 40 mg PO DAILY #90 tablet 06/22/19 Lisinopril [Prinivil] 40 mg PO DAILY 07/23/19 Metoprolol Succinate [Toprol XL -] 50 mg PO DAILY 07/23/19 Anemia: Yes Asthma: Yes Cancer: No Cardiac Disorders: Yes (CAD) CVA: No COPD: Yes CHF: Yes Dementia: No Diabetes: No GI Disorders: No Disorders: No HTN: Yes Hypercholesterolemia: No Liver Disease: No Seizures: No Thyroid Disease: Yes - Surgical History Abdominal Surgery: No Appendectomy: No Cardiac Surgery: Yes (cardiac cath) Cholecystectomy: No Lung Surgery: No Neurologic Surgery: No Orthopedic Surgery: Yes (BILATERAL KNEE ARTHROSCOPY) - Immunization History Immunization Up to Date: No - Psycho Social/Smoking Cessation Hx Smoking History: Never smoked Have you smoked in the past 12 months: No Number of Cigarettes Smoked Daily: 0 If you are a former smoker, when did you quit?: 40 Information on smoking cessation initiated: No Hx Alcohol Use: No Drug/Substance Use Hx: No Substance Use Type: None Hx Substance Use Treatment: No Review of Systems - Review of Systems Comments:: 07/23/19 13:05 GENERAL/CONSTITUTIONAL: +Lightheadedness +Fatigue No fever or chills. HEAD, EYES, EARS, NOSE AND THROAT: No change in vision. No ear pain or discharge. No sore throat. CARDIOVASCULAR: +chest pain +shortness of breath. RESPIRATORY: No cough, wheezing, or hemoptysis. GASTROINTESTINAL: +nausea No vomiting, diarrhea or constipation. GENITOURINARY: No dysuria, frequency, or change in urination. MUSCULOSKELETAL: No joint or muscle swelling or pain. No neck or back pain. SKIN: No rash NEUROLOGIC: No headache, vertigo, loss of consciousness, or change in strength/ sensation. ENDOCRINE: No increased thirst. No abnormal weight change. HEMATOLOGIC/LYMPHATIC: No anemia, easy bleeding, or history of blood clots. ALLERGIC/IMMUNOLOGIC: No hives or skin allergy. *Physical Exam - Vital Signs Last Vital Signs Temp Pulse Resp BP Pulse Ox 97.8 F 60 16 140/62 98 07/23/19 11:10 07/23/19 11:15 07/23/19 11:15 07/23/19 11:15 07/23/19 11:15 - Physical Exam Comments: 07/23/19 13:34 no awake alert no acute distress lungs are with fine crackles at bilateral bases heart is regular there is noted to be a systolic murmur 2 out of 6 no rubs no gallops regular rhythm abdomen is soft nontender extremities are warm well perfused there is nonpitting edema noted 2+ DP PT pulses. Neurologically patient is awake alert and oriented x3 moving all 4 extremities Heart Score/ECG Review #1 ECG reviewed & interpreted by me at: 13:35 General ECG Interpretation: Sinus Rhythm, Normal Rate, Normal Intervals, No acute ischemic changes Compared to previous ECG there are: Other (TWi I, AVL, TWI V4 - V6, wide qrs lbb , left axis. no change comparison 06/19/19) ED Treatment Course - LABORATORY CBC & Chemistry Diagram: 07/23/19 13:00 07/23/19 13:00 - RADIOLOGY Radiology Studies Ordered: Category Date Time Status CHEST PA & LAT [RAD] Stat Radiology 07/23/19 12:29 Ordered - Medications Given in the ED: ED Medications Discontinued Medications Generic Name Dose Route Start Last Admin Trade Name John PRN Reason Stop Dose Admin Aspirin 325 mg 07/23/19 13:00 07/23/19 13:15 Asa - PO 07/23/19 13:01 325 mg ONCE ONE Administration Medical Decision Making - Medical Decision Making 07/23/19 13:29 63 yo F with h/o CHF , nonischemic ( EF 30%, ) scheduled for BI-V pacemaker later this month, here today with complaints of worsening sob, chest pain and peripheral edema. pt states can only walk a block , can lye flat but wakes up short of breath. chest pain described as pressure., no radiation. mild cough, nausea, no vomiting. no fever, did have leg swelling yesterday,, took her lasix which she takes intermittently based on sxs, and has had mild improvement to her swelling. no h/o pe / dvt. no other complaints. was at work, sitting in a chair felt sob. on my exam, pt with fine crackles at bases, heart systolic murmur, no rubs gallops. legs mild nonpitting edema. nuero alert oriented x 3. plan tele, cxr ekg labs bnp trop cbc cmp. will aman require admission to telemetry to r/o ACS d/w dr tolentino, will see pt in hospital. 07/23/19 14:59 pt with mildly positive troponin, per chart review at [facility]. bnp elevated, but at its peak. given lasix 40 mg ivp, asa. pt admitted to tele. d/w admiting resident. accepted admission. Discharge - Discharge Information Problems reviewed: Yes Clinical Impression/Diagnosis: Chest pain - Admission Yes - Follow up/Referral Referrals: Becky Berrios MD [Primary Care Provider] - - Patient Discharge Instructions - Post Discharge Activity
[2019-07-23 13:37] LABS: INR 1.03 (0.83-1.09); PROTHROMBIN TIME (PATIENT) 12.2 SEC (9.7-13.0)
[2019-07-23 13:42] LABS: PLATELET ESTIMATE ADEQUATE
[2019-07-23 14:00] LABS: BILIRUBIN,TOTAL 0.4 mg/dL (0.2-1); BLOOD UREA NITROGEN 17.6 mg/dL (7-18); CALCIUM 9.1 mg/dL (8.5-10.1); CREATININE 0.9 mg/dL (0.55-1.3); N-TERMINAL BNP 1417.6 pg/ml (5-125); POTASSIUM 4.2 mmol/L (3.5-5.1); TOT PROT 7.4 g/dl (6.4-8.2)
[2019-07-23] MEDS ORDERED: FUROSEMIDE 40 MG/4 ML INJECTABLE VIAL IVPUSH ONE ×2 (14:14→22:00)
[2019-07-23] MEDS ORDERED: FUROSEMIDE 40 MG/4 ML INJECTABLE VIAL ONE ×2 (14:40→22:37)
--- NOTE | 2019-07-23 15:40 | HP ---
CHIEF COMPLAINT: chest pain/sob PCP: Dr. Berrios Cardio: Dr. Shaw HISTORY OF PRESENT ILLNESS: 63F w/ pmhx of asthma, systolic CHF (06/20/19- EF 30-35%), mod-sev MR, non- ischemic cardiomyopathy presents in the ED for complaints of chest pain and sob. States her chest pain started while she was at work sitting at her desk. States it started in the mid-sternum and radiated to the L side of her chest, but denies radiation to the neck, back or L arm. Reports that her chest pain is worsened upon exertion and is not exacerbated with eating food. Chest pain is dull and aching, intermittently every 15-20 min. She associated sob with her chest pain however she has been having ongoing sob even prior to his episode. For months she has been feeling fatigued and it has been progressively difficult to her climb stairs due to sob. States she sleeps in a recliner at home. Of note, she was recently seen in the hospital for the same exact symptoms, admitted for CHF exacerbation and discharged on 06/22/19. She follows up with Dr. Shaw, her display associate, and recently saw her 2 weeks ago as an outpatient. Pt reports that she has a scheduled appt at [facility] this upcoming Sunday for pacemaker placement. Denies f/c, n/v, cardenas/d, vision changes, abd pain, changes in urinary/bowel habits. Admits to mild leg swelling. ER course was notable for: (1) Trop 0.10 (baseline since 03/05), BNP 1400s (improved from previous labs). VS stable (2) EKG unchanged from previously; NSR, LBBB, HR 66 (3) IV Lasix 40, ASA 325 given Recent Travel: Denies PAST MEDICAL HISTORY: As per HPI PAST SURGICAL HISTORY: b/l knee replacement cardiac cath (09/02) Social History: Smoking: Former smoker; quit in her 20s, used to smoke 1 PPW since age 17 Alcohol: Denies Drugs: Denies Works as receptionist telephone operator at desk job No children Allergies Sulfa (Sulfonamide Antibiotics) Allergy (Verified 07/23/19 11:13) HOME MEDICATIONS: Home Medications Medication Instructions Recorded Albuterol 0.083% Nebulizer Kristyn 1 neb NEB QID 02/25/19 [Ventolin 0.083% Nebulizer Soln -] Budesonide/Formeterol Fumarate 2 puff IH BID #1 inhaler 02/27/19 [SYMBICORT 80/4.5mcg -] Furosemide [Lasix -] 40 mg PO DAILY #90 tablet 06/22/19 Lisinopril [Prinivil] 40 mg PO DAILY 07/23/19 Metoprolol Succinate [Toprol XL -] 50 mg PO DAILY 07/23/19 REVIEW OF SYSTEMS CONSTITUTIONAL: +generalized weakness, malaise Absent: fever, chills, diaphoresis, loss of appetite, weight change HEENT: Absent: rhinorrhea, nasal congestion, throat pain, throat swelling, difficulty swallowing, mouth swelling, ear pain, eye pain, visual changes CARDIOVASCULAR: +chest pain, chest pressure, b/l leg swelling Absent: , syncope, palpitations, irregular heart rate, lightheadedness, peripheral edema RESPIRATORY: +shortness of breath, dyspnea with exertion, orthopnea Absent: cough, wheezing, stridor, hemoptysis GASTROINTESTINAL: +constipation Absent: abdominal pain, abdominal distension, nausea, vomiting, diarrhea, melena , hematochezia GENITOURINARY: Absent: dysuria, frequency, urgency, hesitancy, hematuria, flank pain, genital pain MUSCULOSKELETAL: Absent: myalgia, arthralgia, joint swelling, back pain, neck pain SKIN: Absent: rash, itching, pallor HEMATOLOGIC/IMMUNOLOGIC: Absent: easy bleeding, easy bruising, lymphadenopathy, frequent infections ENDOCRINE: Absent: unexplained weight gain, unexplained weight loss, heat intolerance, cold intolerance NEUROLOGIC: Absent: headache, focal weakness or paresthesias, dizziness, unsteady gait, seizure, mental status changes, bladder or bowel incontinence PSYCHIATRIC: Absent: anxiety, depression, suicidal or homicidal ideation, hallucinations. PHYSICAL EXAMINATION Vital Signs - 24 hr 07/23/19 07/23/19 07/23/19 11:10 11:15 14:54 Temperature 97.8 F Pulse Rate 62 Pulse Rate [ 60 60 Apical] Respiratory 19 16 20 Rate Blood Pressure 140/51 L Blood Pressure 140/62 155/54 L [Right Arm] O2 Sat by Pulse 98 98 98 Oximetry (%) GENERAL: Pleasant, well-appearing female, NAD. AAOx3. HEENT: AT/NC. EOMI. MMM. Facial symmetry intact. Pale palpebral conjunctiva. NECK: Normal range of motion, supple without lymphadenopathy, JVD, or masses. LUNGS: CTA B/L. No wheezes, rhonchi, rales noted. Speaks in complete sentences. No use of accessory muscles. HEART: Regular rate and rhythm, normal S1 and S2 without murmur, rub or gallop. ABDOMEN: Soft, NT/ND. Normoactive bowel sounds. No masses/deformities noted. MUSCULOSKELETAL: Normal range of motion at all joints. No bony deformities or tenderness. No CVA tenderness. UPPER EXTREMITIES: 2+ pulses, warm, well-perfused. No cyanosis. No clubbing. No peripheral edema. LOWER EXTREMITIES: 2+ pulses, warm, well-perfused. No calf tenderness. No peripheral edema. NEUROLOGICAL: Cranial nerves II-XII intact. Normal speech. SKIN: Warm, dry, normal turgor, no rashes or lesions noted, normal capillary refill. Laboratory Results - last 24 hr 07/23/19 07/23/19 07/23/19 13:00 13:00 13:00 WBC 7.2 RBC 4.72 Hgb 12.0 Hct 37.6 MCV 79.6 L MCH 25.4 L MCHC 31.9 L RDW 16.7 H Plt Count 240 D MPV 9.7 D Absolute Neuts (auto) 4.4 Neutrophils % 61.1 Lymphocytes % 25.2 Monocytes % 9.5 Eosinophils % 3.3 Basophils % 0.9 Nucleated RBC % 0 Platelet Estimate Adequate Platelet Comment PT with INR 12.20 INR 1.03 Sodium Potassium Chloride Carbon Dioxide Anion Gap BUN Creatinine Est GFR (CKD-EPI)AfAm Est GFR (CKD-EPI)NonAf Random Glucose Calcium Total Bilirubin AST ALT Alkaline Phosphatase Creatine Kinase 149 Troponin I 0.10 H B-Natriuretic Peptide Total Protein Albumin 07/23/19 13:00 WBC RBC Hgb Hct MCV MCH MCHC RDW Plt Count MPV Absolute Neuts (auto) Neutrophils % Lymphocytes % Monocytes % Eosinophils % Basophils % Nucleated RBC % Platelet Estimate Platelet Comment PT with INR INR Sodium 139 Potassium 4.2 Chloride 104 Carbon Dioxide 31 Anion Gap 4 L BUN 17.6 Creatinine 0.9 Est GFR (CKD-EPI)AfAm 79.42 Est GFR (CKD-EPI)NonAf 68.53 Random Glucose 101 Calcium 9.1 Total Bilirubin 0.4 AST 14 L ALT 19 Alkaline Phosphatase 102 Creatine Kinase Troponin I B-Natriuretic Peptide 1417.6 H Total Protein 7.4 Albumin 4.0 ASSESSMENT/PLAN: 63F w/ pmhx of asthma, systolic CHF (06/20/19- EF 30-35%), mod-sev MR, non- ischemic cardiomyopathy presents in the ED for complaints of chest pain and sob. #Acute on Chronic Systolic CHF; Pt has symptoms of chest pain/sob with significant systolic CHF hx, will r/o ACS as well. -IV Lasix given x1 in ED; will continue with IV Lasix 40 AM, and 20 once at night. Will hold PO Lasix -Most recent echo (06/20/19) remarkable for EF 30-35%, severe global hypokinesis of LV, mod to sev MR, mod TR -CXR pending -Daily weights, I/Os -EKG showed NSR, LBBB, HR 66; unchanged from previous. Trops 0.10, unchanged from previous admissions, but will cont to trend -Cardio consulted Cont home meds: Lisinopril 40 QD, Toprol XL 50 QD #Hx of Asthma; stable. Albuterol nebs PRN. #Obesity; BMI 35 -Diet/weight loss counseling #Prophylaxis DVT: Lovenox FEN -PO hydration -recheck lytes in AM -Sodium-controlled diet Dispo -admit to tele obs Visit type - Emergency Visit Emergency Visit: Yes ED Registration Date: 07/23/19 Care time: The patient presented to the Emergency Department on the above date and was hospitalized for further evaluation of their emergent condition. - New Patient This patient is new to me today: No Date on this admission: 07/23/19 - Critical Care Critical Care patient: No ATTENDING PHYSICIAN STATEMENT I saw and evaluated the patient. I reviewed the resident's note and discussed the case with the resident. I agree with the resident's findings and plan as documented. SUBJECTIVE: OBJECTIVE: ASSESSMENT AND PLAN:
[2019-07-23] MEDS ORDERED: LISINOPRIL 20 MG TABLET (FP) ONE (16:27)
[2019-07-23] MEDS: LISINOPRIL 20 MG TABLET (FP) PO SCH (16:34)
[2019-07-23] MEDS ORDERED: ALBUTEROL SO4 0.083% IH SOL 2.5 MG/3 ML VIAL.NEB. NEB PRN (16:37)
--- NOTE | 2019-07-23 16:52 | CON.CARD ---
Cardiology Consult (text) - Consultation Consultation Note: Chief Complaint: SOB History of Present Illness: 63F with asthma, mod-severe MR, NICM (non-obstx CAD on cath 2017), chronic systolic CHF, chronically borderline elevated TnI here with sob. Admitted here recently for sob/chf. She was diuresed and felt better initially but then sob/ jolley gradually returned. Also with some occasional chest tightness, also similar to last admit for chf that resolved with iv lasix. No loc, pnd, orthopnea. Mild le edema. Sees dr tolentino for cardio. - History Source History Provided By: Patient - Past Medical History Cardio/Vascular: Yes: CHF, HTN, Mitral Insufficiency, Other (LVD) Pulmonary: Yes: Asthma, Bronchitis, Pneumonia. No: Cancer, COPD, O2 Dependent, Previously Intubated, Pulmonary Embolus, Pulmonary Fibrosis Heme/Onc: No: Anemia, B12 Deficiency, Bleeding Disorder, Cancer, Current Chemotherapy, Current Radiation Therapy, Hemochromatosis, Hypercoaguable State, Myeloproliferative Synd, Sickle Cell Disease, Sickle Cell Trait, Thrombocytopenia, Other Infectious Disease: No: AIDS, C-Diff, Herpes Zoster, HIV, MRSA, STD's, Tuberculosis, VREF, Other Psych: No: Addictions, Anxiety, Bipolar, Depression, Panic, Psychosis, Schizophrenia, Other Musculoskeletal: No: Bursitis, Chronic low back pain, Hemiparesis, Hemiplegia, Osteoarthritis, Paraplegia, Other Rheumatology: No: Fibromyalgia, Gout, Lupus, Rheumatoid Arthritis, Sarcoidosis, Vasculitis, Other ENT: No: Allergic Rhinitis, Sinusitis, Other Endocrine: No: Corona's Disease, [place]'s Disease, Diabetes Insipidus, Diabetes Mellitus, Hyperparathyroidism, Hyperthyroidism, Hypothyroidism, Osteopenia, SIADH, Other Dermatology: No: Basal Cell, Cellulitis, Eczema, Melanoma, Psoriasis, Squamous Cell, Other - Past Surgical History Past Surgical History: Yes: Joint Replacement - Alcohol/Substance Use Hx Alcohol Use: No - Smoking History Smoking history: Former smoker Have you smoked in the past 12 months: No Aproximately how many cigarettes per day: 0 If you are a former smoker, when did you quit?: 40 - Social History ADL: Independent History of Recent Travel: Yes Home Medications - Allergies Allergies/Adverse Reactions: Allergies Allergy/AdvReac Type Severity Reaction Status Date / Time Sulfa (Sulfonamide Allergy Verified 11/06/19 11:13 Antibiotics) - Home Medications Home Medications Medication Instructions Recorded Albuterol 0.083% Nebulizer Kristyn 1 neb NEB QID 02/25/19 [Ventolin 0.083% Nebulizer Soln -] Budesonide/Formeterol Fumarate 2 puff IH BID #1 inhaler 02/27/19 [SYMBICORT 80/4.5mcg -] Furosemide [Lasix -] 40 mg PO DAILY #90 tablet 06/22/19 Lisinopril [Prinivil] 40 mg PO DAILY 07/23/19 Metoprolol Succinate [Toprol XL -] 50 mg PO DAILY 07/23/19 Family Medical History Family History: Unremarkable Review of Systems - Review of Systems Constitutional: reports: No Symptoms Eyes: reports: No Symptoms HENT: reports: No Symptoms Neck: reports: No Symptoms Cardiovascular: reports: Chest Pain, Shortness of Breath Respiratory: reports: Exercise Intolerance, SOB Gastrointestinal: denies: No Symptoms, Abdominal Pain, Bloating, Constipation, Diarrhea, Dysphagia, Indigestion, Melena, Nausea, Rectal Bleeding, Vomiting, Vomiting Blood, Other Genitourinary: denies: No Symptoms, Burning, Discharge, Dysuria, Flank Pain, Frequency, Hematuria, Incontinence, Lesions, Menses, Pain, Testicular Mass, Testicular Pain, Testicular Swelling, Urgency, Vaginal Bleeding, Other Breasts: denies: No Symptoms Reported, See HPI, Breast Implants, Discharge from Nipple, Lumps, Pain, Skin Changes, Other Musculoskeletal: denies: No Symptoms, Back Pain, Crepitus, Decreased ROM, Extremity Pain, Joint Pain, Joint Swelling, Muscle Pain, Muscle Cramps, Muscle Weakness, Other Integumentary: denies: No Symptoms, Blister, Bruising, Change in Color, Eczema, Erythema, Incision, Lesions, Lump, Pallor, Pruritis, Rash, Wound, Other Neurological: denies: No Symptoms, Change in LOC, Change in Speech, Confusion, Dizziness, Headache, Incoordination, Numbness, Parasthesia, Pre-Existing Deficit , Seizure, Syncope, Tremors, Unsteady Gait, Weakness, Other Endocrine: denies: No Symptoms, Excessive Sweating, Flushing, Increased Hunger, Increased Thirst, Intolerance to Cold, Intolerance to Heat, Unexplained Weight Gain, Unexplained Weight Loss, Other Hematology/Lymphatic: denies: No Symptoms, Easily Bruised, Excessive Bleeding, Swollen Glands, Other Psychiatric: denies: No Symptoms, Altered Sleep Pattern, Anxiety, Depression, Hallucinations, Panic, Paranoia, Suicidal, Other - Risk Factors Known Risk Factors: Yes: Smoking Vital Signs: Vital Signs Period Temp Pulse Resp BP Sys/Gatica Pulse Ox Last 24 Hr 97.8 F 60-62 16-20 137-155/51-68 97-98 Constitutional: Yes: Calm Eyes: Yes: Conjunctiva Clear, EOM Intact Neck: Yes: Trachea Midline Respiratory: Yes: CTA Bilaterally (no rales or wheezing) Gastrointestinal: Yes: Soft, Abdomen, Obese Cardiovascular: Yes: Regular Rate and Rhythm JVD: No Carotid Bruit: No Heart Sounds: Yes: S1, S2 (rrr, 2/6 CHRSITOPHER apex) Musculoskeletal: Yes: WNL Extremities: Yes: WNL Edema: Yes Edema: LLE: 1+, RLE: 1+ Peripheral Pulses WNL: Yes Neurological: Yes: Alert, Oriented ...Motor Strength: WNL no jaundice diaphoresis Laboratory Last Values WBC 7.2 K/mm3 (4.0-10.0) 07/23/19 13:00 RBC 4.72 M/mm3 (3.60-5.2) 07/23/19 13:00 Hgb 12.0 GM/dL (10.7-15.3) 07/23/19 13:00 Hct 37.6 % (32.4-45.2) 07/23/19 13:00 MCV 79.6 fl (80-96) L 07/23/19 13:00 MCH 25.4 pg (25.7-33.7) L 07/23/19 13:00 MCHC 31.9 g/dl (32.0-36.0) L 07/23/19 13:00 RDW 16.7 % (11.6-15.6) H 07/23/19 13:00 Plt Count 240 K/MM3 (134-434) D 07/23/19 13:00 MPV 9.7 fl (7.5-11.1) D 07/23/19 13:00 Absolute Neuts (auto) 4.4 K/mm3 (1.5-8.0) 07/23/19 13:00 Neutrophils % 61.1 % (42.8-82.8) 07/23/19 13:00 Lymphocytes % 25.2 % (8-40) 07/23/19 13:00 Monocytes % 9.5 % (3.8-10.2) 07/23/19 13:00 Eosinophils % 3.3 % (0-4.5) 07/23/19 13:00 Basophils % 0.9 % (0-2.0) 07/23/19 13:00 Nucleated RBC % 0 % (0-0) 07/23/19 13:00 Platelet Estimate Adequate 07/23/19 13:00 Platelet Comment 07/23/19 13:00 PT with INR 12.20 SEC (9.7-13.0) 07/23/19 13:00 INR 1.03 (0.83-1.09) 07/23/19 13:00 Sodium 139 mmol/L (136-145) 07/23/19 13:00 Potassium 4.2 mmol/L (3.5-5.1) 07/23/19 13:00 Chloride 104 mmol/L (98-107) 07/23/19 13:00 Carbon Dioxide 31 mmol/L (21-32) 07/23/19 13:00 Anion Gap 4 MMOL/L (8-16) L 07/23/19 13:00 BUN 17.6 mg/dL (7-18) 07/23/19 13:00 Creatinine 0.9 mg/dL (0.55-1.3) 07/23/19 13:00 Est GFR (CKD-EPI)AfAm 79.42 07/23/19 13:00 Est GFR (CKD-EPI)NonAf 68.53 07/23/19 13:00 Random Glucose 101 mg/dL (74-106) 07/23/19 13:00 Calcium 9.1 mg/dL (8.5-10.1) 07/23/19 13:00 Total Bilirubin 0.4 mg/dL (0.2-1) 07/23/19 13:00 AST 14 U/L (15-37) L 07/23/19 13:00 ALT 19 U/L (13-61) 07/23/19 13:00 Alkaline Phosphatase 102 U/L (45-117) 07/23/19 13:00 Creatine Kinase 149 U/L (26-192) 07/23/19 13:00 Troponin I 0.10 ng/ml (0.00-0.05) H 07/23/19 13:00 B-Natriuretic Peptide 1417.6 pg/ml (5-125) H 07/23/19 13:00 Total Protein 7.4 g/dl (6.4-8.2) 07/23/19 13:00 Albumin 4.0 g/dl (3.4-5.0) 07/23/19 13:00 ecg: sr, old lbbb Echo in February 2019 here: severely reduced EF, moderate to severe MR echo 06/2019: lve, lvef 30-35, global hk, lae, mod-sev mr, mod tr, rvsp 30-40 IMP: Acute on chronic systolic CHF Non-ischemic CM with known severely reduced LVEF Moderate to severe MR Equivocal TnI, most likely c/w chronic CHF Atypical CP REC: 1. Telemetry for IV Lasix, daily weights and BMP to follow renal fx 2. Borderline/equivocal TnI with nl ck and similar to prior baseline values, likely due to mild acute on chronic systolic CHF, do not suspect ACS. Continue to trend ce's. 3. Continue BB, RAIMUNDO-I 4. Cont tele and assess clinical response to diuresis. 5. Planned for outpt ICD placement on sunday at [facility].
--- NOTE | 2019-07-23 18:46 | PN ---
Teaching Attending Note Name of Resident: Rosemary Vásquez ATTENDING PHYSICIAN STATEMENT I saw and evaluated the patient. I reviewed the resident's note and discussed the case with the resident. I agree with the resident's findings and plan as documented. SUBJECTIVE: Patient is a 63yo female with PMhx of Asthma/CHF, presented to ED. with shortness of breath. family at bed side. OBJECTIVE: Vital Signs Temperature 97.8 F 07/23/19 11:10 Pulse Rate 62 07/23/19 16:34 Respiratory Rate 20 07/23/19 16:34 Blood Pressure 137/68 07/23/19 16:34 O2 Sat by Pulse Oximetry (%) 97 07/23/19 16:34 GENERAL: The patient is awake, alert, and fully oriented, in no acute distress. HEAD: Normal with no signs of trauma. EYES: PERRL, extraocular movements intact, sclera anicteric, conjunctiva clear. ENT: Ears normal, oropharynx clear without exudates, moist mucous membranes. NECK: Trachea midline, full range of motion, supple. LUNGS:decreased Breath sounds BL , no wheezes, no crackles, no accessory muscle use. HEART: Regular rate and rhythm, S1, S2 without murmur, rub or gallop. ABDOMEN: Soft, nontender, nondistended, normoactive bowel sounds, no guarding, no rebound, no hepatosplenomegaly, no masses. EXTREMITIES: 2+ pulses, warm, well-perfused, no edema. NEUROLOGICAL: Cranial nerves II through XII grossly intact. Normal speech, gait not observed. PSYCH: Normal mood, normal affect. SKIN: Warm, dry, normal turgor, no rashes or lesions noted CBCD WBC 7.2 K/mm3 (4.0-10.0) 07/23/19 13:00 RBC 4.72 M/mm3 (3.60-5.2) 07/23/19 13:00 Hgb 12.0 GM/dL (10.7-15.3) 07/23/19 13:00 Hct 37.6 % (32.4-45.2) 07/23/19 13:00 MCV 79.6 fl (80-96) L 07/23/19 13:00 MCHC 31.9 g/dl (32.0-36.0) L 07/23/19 13:00 RDW 16.7 % (11.6-15.6) H 07/23/19 13:00 Plt Count 240 K/MM3 (134-434) D 07/23/19 13:00 MPV 9.7 fl (7.5-11.1) D 07/23/19 13:00 CMP Sodium 139 mmol/L (136-145) 07/23/19 13:00 Potassium 4.2 mmol/L (3.5-5.1) 07/23/19 13:00 Chloride 104 mmol/L (98-107) 07/23/19 13:00 Carbon Dioxide 31 mmol/L (21-32) 07/23/19 13:00 Anion Gap 4 MMOL/L (8-16) L 07/23/19 13:00 BUN 17.6 mg/dL (7-18) 07/23/19 13:00 Creatinine 0.9 mg/dL (0.55-1.3) 07/23/19 13:00 Random Glucose 101 mg/dL (74-106) 07/23/19 13:00 Calcium 9.1 mg/dL (8.5-10.1) 07/23/19 13:00 Total Bilirubin 0.4 mg/dL (0.2-1) 07/23/19 13:00 AST 14 U/L (15-37) L 07/23/19 13:00 ALT 19 U/L (13-61) 07/23/19 13:00 Alkaline Phosphatase 102 U/L (45-117) 07/23/19 13:00 Total Protein 7.4 g/dl (6.4-8.2) 07/23/19 13:00 Albumin 4.0 g/dl (3.4-5.0) 07/23/19 13:00 CARDIAC ENZYMES Creatine Kinase 149 U/L (26-192) 07/23/19 13:00 Troponin I 0.10 ng/ml (0.00-0.05) H 07/23/19 13:00 echo (06/20/19) remarkable for EF 30-35%, severe global hypokinesis of LV, mod to sev MR, mod TR EKG showed NSR, LBBB, HR 66; unchanged from previous. ASSESSMENT AND PLAN: Patient is a 63F with pmhx of asthma, systolic CHF (06/20/19- EF 30-35%), mod- sev MR, non-ischemic cardiomyopathy presents in the ED for complaints of chest pain and sob. #Acute on Chronic Systolic CHF r/o ACS as well. lasix Bid , cardio consult , CXR , Daily weights, I/Os, ekg, 1st set of trop 0.10, unchanged from previous admissions, but will continue to trend, continue home meds: Lisinopril 40 QD, Toprol XL 50 QD #Hx of Asthma; stable. Albuterol nebs PRN. #Obesity with BMI 35: Diet/weight loss counseling #Dvt Px: Lovenox admit to tele obs
[2019-07-24 06:43] LABS: HEMATOCRIT 35.1 % (32.4-45.2); HEMOGLOBIN 11.4 GM/dL (10.7-15.3); MCH 25.5 pg (25.7-33.7); MCHC 32.5 g/dl (32.0-36.0); MEAN CELL VOLUME 78.3 fl (80-96); MEAN PLT VOLUME 8.9 fl (7.5-11.1); PLATELET COUNT 198 K/MM3 (134-434); RBC 4.48 M/mm3 (3.60-5.2); RDW 16.2 % (11.6-15.6); WHITE BLOOD COUNT 5.6 K/mm3 (4.0-10.0)
[2019-07-24 07:07] LABS: BLOOD UREA NITROGEN 24.7 mg/dL (7-18); CREATININE 0.9 mg/dL (0.55-1.3); MAGNESIUM 2.2 mg/dL (1.8-2.4); POTASSIUM 4.1 mmol/L (3.5-5.1)
[2019-07-24] MEDS ORDERED: ENOXAPARIN NA (PORCINE) 40 MG/0.4 ML DISP.SYRIN SQ SCH (10:00)
[2019-07-24] MEDS ORDERED: FUROSEMIDE 40 MG/4 ML INJECTABLE VIAL IVPUSH SCH (10:00)
[2019-07-24] MEDS: LISINOPRIL 20 MG TABLET (FP) PO SCH (10:11)
--- NOTE | 2019-07-24 11:43 | PN ---
Progress Note (short form) - Note Progress Note: s: no cp palps dizzy; sob improved after iv lasix Current Medications Generic Name Dose Route Start Last Admin Trade Name John PRN Reason Stop Dose Admin Albuterol Sulfate 1 amp 07/23/19 16:37 Ventolin 0.083% Nebulizer Soln - NEB RQID PRN SHORTNESS OF BREATH Enoxaparin Sodium 40 mg 07/24/19 10:00 07/24/19 10:11 Lovenox - SQ 40 mg DAILY IDALIA Administration Furosemide 40 mg 07/24/19 10:00 07/24/19 10:11 Lasix Injection - IVPUSH 40 mg DAILY IDALIA Administration Lisinopril 40 mg 07/23/19 16:00 07/24/19 10:11 Prinivil PO 40 mg DAILY IDALIA Administration Metoprolol Succinate 50 mg 07/23/19 16:00 07/24/19 10:11 Toprol Xl - PO 50 mg DAILY IDALIA Administration Vital Signs Period Temp Pulse Resp BP Sys/Gatica Pulse Ox Last 24 Hr 98.1 F-98.6 F 53-62 10-20 111-155/54-73 95-98 Constitutional: Yes: Calm Neck: Yes: Trachea Midline Respiratory: Yes: CTA Bilaterally (no rales or wheezing) Gastrointestinal: Yes: Soft, Abdomen, Obese Cardiovascular: Yes: Regular Rate and Rhythm JVD: No Carotid Bruit: No Heart Sounds: Yes: S1, S2 (rrr, 2/6 CHRISTOPHER apex) Musculoskeletal: Yes: WNL Extremities: Yes: WNL Edema: trace le edema bl Peripheral Pulses WNL: Yes Neurological: Yes: Alert, Oriented ...Motor Strength: WNL no jaundice diaphoresis Laboratory Last Values WBC 5.6 K/mm3 (4.0-10.0) 07/24/19 06:18 RBC 4.48 M/mm3 (3.60-5.2) 07/24/19 06:18 Hgb 11.4 GM/dL (10.7-15.3) 07/24/19 06:18 Hct 35.1 % (32.4-45.2) 07/24/19 06:18 MCV 78.3 fl (80-96) L 07/24/19 06:18 MCH 25.5 pg (25.7-33.7) L 07/24/19 06:18 MCHC 32.5 g/dl (32.0-36.0) 07/24/19 06:18 RDW 16.2 % (11.6-15.6) H 07/24/19 06:18 Plt Count 198 K/MM3 (134-434) 07/24/19 06:18 MPV 8.9 fl (7.5-11.1) 07/24/19 06:18 Absolute Neuts (auto) 4.4 K/mm3 (1.5-8.0) 07/23/19 13:00 Neutrophils % 61.1 % (42.8-82.8) 07/23/19 13:00 Lymphocytes % 25.2 % (8-40) 07/23/19 13:00 Monocytes % 9.5 % (3.8-10.2) 07/23/19 13:00 Eosinophils % 3.3 % (0-4.5) 07/23/19 13:00 Basophils % 0.9 % (0-2.0) 07/23/19 13:00 Nucleated RBC % 0 % (0-0) 07/23/19 13:00 Platelet Estimate Adequate 07/23/19 13:00 Platelet Comment 07/23/19 13:00 PT with INR 12.20 SEC (9.7-13.0) 07/23/19 13:00 INR 1.03 (0.83-1.09) 07/23/19 13:00 Sodium 138 mmol/L (136-145) 07/24/19 06:18 Potassium 4.1 mmol/L (3.5-5.1) 07/24/19 06:18 Chloride 102 mmol/L (98-107) 07/24/19 06:18 Carbon Dioxide 33 mmol/L (21-32) H 07/24/19 06:18 Anion Gap 4 MMOL/L (8-16) L 07/24/19 06:18 BUN 24.7 mg/dL (7-18) H 07/24/19 06:18 Creatinine 0.9 mg/dL (0.55-1.3) 07/24/19 06:18 Est GFR (CKD-EPI)AfAm 79.42 07/24/19 06:18 Est GFR (CKD-EPI)NonAf 68.53 07/24/19 06:18 Random Glucose 111 mg/dL (74-106) H 07/24/19 06:18 Calcium 9.0 mg/dL (8.5-10.1) 07/24/19 06:18 Phosphorus 5.0 mg/dL (2.5-4.9) H 07/24/19 06:18 Magnesium 2.2 mg/dL (1.8-2.4) 07/24/19 06:18 Total Bilirubin 0.4 mg/dL (0.2-1) 07/23/19 13:00 AST 14 U/L (15-37) L 07/23/19 13:00 ALT 19 U/L (13-61) 07/23/19 13:00 Alkaline Phosphatase 102 U/L (45-117) 07/23/19 13:00 Creatine Kinase 149 U/L (26-192) 07/23/19 13:00 Troponin I 0.09 ng/ml (0.00-0.05) H 07/23/19 18:00 B-Natriuretic Peptide 1417.6 pg/ml (5-125) H 07/23/19 13:00 Total Protein 7.4 g/dl (6.4-8.2) 07/23/19 13:00 Albumin 4.0 g/dl (3.4-5.0) 07/23/19 13:00 ecg: sr, old lbbb Echo in February 2019 here: severely reduced EF, moderate to severe MR echo 06/2019: lve, lvef 30-35, global hk, lae, mod-sev mr, mod tr, rvsp 30-40 IMP: Acute on chronic systolic CHF Non-ischemic CM with known severely reduced LVEF Moderate to severe MR Equivocal TnI, most likely c/w chronic CHF Atypical CP REC: 1. Volume status and symptoms improving with iv lasix, continue, daily weights and BMP to follow renal fx. Pt was taking lasix 40 prn as outpt, will likely need to make 40 qd standing on dc to avoid volume build up. 2. Borderline/equivocal TnI with flat trend and nl ck and similar to prior baseline values, likely due to mild acute on chronic systolic CHF, do not suspect ACS. dc tele. 3. Continue BB, RAIMUNDO-I 4. Planned for outpt ICD placement on sunday at [facility].
[2019-07-24] MEDS ORDERED: ALBUTEROL SO4 0.083% IH SOL 2.5 MG/3 ML VIAL.NEB. NEB PRN (13:25)
--- NOTE | 2019-07-24 14:34 | PN ---
Physical Exam: SUBJECTIVE: Patient seen and examined 63 y/o F, w/ pmh of asthma, systolic CHF (06/20/19- EF 30-35%), mod-sev MR, non- ischemic cardiomyopathy, presents w/ sob and nonradiating, localized dull, parasternal chest pain of 2 days duration is admitted for CHF exacerbation. Pt' s symptoms improved after administration of lasixs. Currently, pt is asymptomatic, afebrile, without any further c/o or issues. Pt is breathing well , no longer is experiencing any chest pain. No overnight events. Denies f/c/n/v/ d, sob, abdominal pain. OBJECTIVE: Last Vital Signs Temp Pulse Resp BP Pulse Ox 98.6 F 58 L 20 139/73 98 07/24/19 08:00 07/24/19 10:12 07/24/19 10:12 07/24/19 10:12 07/24/19 10:12 GENERAL: The patient is awake, alert, and fully oriented, in no acute distress. EYES: PERRL, extraocular movements intact ENT: moist mucous membranes. NECK: full range of motion, supple. LUNGS: Breath sounds equal, clear to auscultation bilaterally, no wheezes, no crackles, HEART: Regular rate and rhythm, S1, S2 without murmur, rub or gallop. ABDOMEN: Soft, nontender, nondistended, normoactive bowel sounds, no guarding, EXTREMITIES: 2+ pulses, warm, well-perfused, mild edema b/l LE NEUROLOGICAL: Cranial nerves II through XII grossly intact. PSYCH: Normal mood, normal affect. Laboratory Results - last 24 hr CBC,CMP WBC 5.6 K/mm3 (4.0-10.0) 07/24/19 06:18 RBC 4.48 M/mm3 (3.60-5.2) 07/24/19 06:18 Hgb 11.4 GM/dL (10.7-15.3) 07/24/19 06:18 Hct 35.1 % (32.4-45.2) 07/24/19 06:18 MCV 78.3 fl (80-96) L 07/24/19 06:18 MCH 25.5 pg (25.7-33.7) L 07/24/19 06:18 MCHC 32.5 g/dl (32.0-36.0) 07/24/19 06:18 RDW 16.2 % (11.6-15.6) H 07/24/19 06:18 Plt Count 198 K/MM3 (134-434) 07/24/19 06:18 MPV 8.9 fl (7.5-11.1) 07/24/19 06:18 Absolute Neuts (auto) 4.4 K/mm3 (1.5-8.0) 07/23/19 13:00 Neutrophils % 61.1 % (42.8-82.8) 07/23/19 13:00 Lymphocytes % 25.2 % (8-40) 07/23/19 13:00 Monocytes % 9.5 % (3.8-10.2) 07/23/19 13:00 Eosinophils % 3.3 % (0-4.5) 07/23/19 13:00 Basophils % 0.9 % (0-2.0) 07/23/19 13:00 Nucleated RBC % 0 % (0-0) 07/23/19 13:00 Platelet Estimate Adequate 07/23/19 13:00 Platelet Comment 07/23/19 13:00 Sodium 138 mmol/L (136-145) 07/24/19 06:18 Potassium 4.1 mmol/L (3.5-5.1) 07/24/19 06:18 Chloride 102 mmol/L (98-107) 07/24/19 06:18 Carbon Dioxide 33 mmol/L (21-32) H 07/24/19 06:18 Anion Gap 4 MMOL/L (8-16) L 07/24/19 06:18 BUN 24.7 mg/dL (7-18) H 07/24/19 06:18 Creatinine 0.9 mg/dL (0.55-1.3) 07/24/19 06:18 Est GFR (CKD-EPI)AfAm 79.42 07/24/19 06:18 Est GFR (CKD-EPI)NonAf 68.53 07/24/19 06:18 Random Glucose 111 mg/dL (74-106) H 07/24/19 06:18 Calcium 9.0 mg/dL (8.5-10.1) 07/24/19 06:18 Phosphorus 5.0 mg/dL (2.5-4.9) H 07/24/19 06:18 Magnesium 2.2 mg/dL (1.8-2.4) 07/24/19 06:18 Total Bilirubin 0.4 mg/dL (0.2-1) 07/23/19 13:00 AST 14 U/L (15-37) L 07/23/19 13:00 ALT 19 U/L (13-61) 07/23/19 13:00 Alkaline Phosphatase 102 U/L (45-117) 07/23/19 13:00 Creatine Kinase 149 U/L (26-192) 07/23/19 13:00 Troponin I 0.09 ng/ml (0.00-0.05) H 07/23/19 18:00 B-Natriuretic Peptide 1417.6 pg/ml (5-125) H 07/23/19 13:00 Total Protein 7.4 g/dl (6.4-8.2) 07/23/19 13:00 Albumin 4.0 g/dl (3.4-5.0) 07/23/19 13:00 Active Medications Current Medications Albuterol Sulfate (Ventolin 0.083% Nebulizer Soln -) 1 amp NEB RQID PRN PRN Reason: SHORTNESS OF BREATH Enoxaparin Sodium (Lovenox -) 40 mg SQ DAILY IDALIA Furosemide (Lasix Injection -) 40 mg IVPUSH DAILY IDALIA Lisinopril (Prinivil) 40 mg PO DAILY IDALIA Metoprolol Succinate (Toprol Xl -) 50 mg PO DAILY IDALIA Home Medications Medication Instructions Recorded Albuterol 0.083% Nebulizer Kristyn 1 neb NEB QID 02/25/19 [Ventolin 0.083% Nebulizer Soln -] Budesonide/Formeterol Fumarate 2 puff IH BID #1 inhaler 02/27/19 [SYMBICORT 80/4.5mcg -] Furosemide [Lasix -] 40 mg PO DAILY #90 tablet 06/22/19 Lisinopril [Prinivil] 40 mg PO DAILY 07/23/19 Metoprolol Succinate [Toprol XL -] 50 mg PO DAILY 07/23/19 ASSESSMENT/PLAN: 63 y/o F, w/ pmh of asthma, systolic CHF (06/20/19- EF 30-35%), mod-sev MR, non- ischemic cardiomyopathy, presents w/ sob and nonradiating, localized dull, parasternal chest pain of 2 days duration is admitted for CHF exacerbation. #CHF exacerbation- Acute on chronic Lasix 40 given IV CXR- congestive changes seen Echo (06/20/19) remarkable for EF 30-35%, severe global hypokinesis of LV, mod to sev MR, mod TR EKG showed NSR, LBBB, HR 66; unchanged from previous. Troponins are equivocal w/ normal CK As per Cardio- Daily weights, r/p BMP for renal fxn Outpt ICD placement is planned for Sunday as per pt Cont home meds: Lisinopril 40 QD, Toprol XL 50 QD #Asthma Albuterol nebs PRN. #Obesity BMI 35 weigh loss, exercise, and diet control- counselling #[id number]- Lovenox FEN PO hydration Recheck lytes in AM Sodium-controlled diet Dispo- monitor on Tele, r/p labs, one more day of lasix, if pt stable, d/c tomorrow Visit type - Emergency Visit Emergency Visit: Yes ED Registration Date: 07/23/19 Care time: The patient presented to the Emergency Department on the above date and was hospitalized for further evaluation of their emergent condition. - New Patient This patient is new to me today: Yes Date on this admission: 07/25/19 - Critical Care Critical Care patient: No - Discharge Referral Referred to [facility] Med P.C.: No ATTENDING PHYSICIAN STATEMENT I saw and evaluated the patient. I reviewed the resident's note and discussed the case with the resident. I agree with the resident's findings and plan as documented. SUBJECTIVE: OBJECTIVE: ASSESSMENT AND PLAN:
--- NOTE | 2019-07-24 16:57 | PN ---
Teaching Attending Note Name of Resident: Grzegorz Winchester ATTENDING PHYSICIAN STATEMENT I saw and evaluated the patient. I reviewed the resident's note and discussed the case with the resident. I agree with the resident's findings and plan as documented. SUBJECTIVE: Patient is feeling better with no acute distress. no fever or chills. Vital Signs Temperature 98.2 F 07/24/19 14:00 Pulse Rate 66 07/24/19 14:00 Respiratory Rate 18 07/24/19 14:00 Blood Pressure 107/55 L 07/24/19 14:00 O2 Sat by Pulse Oximetry (%) 98 07/24/19 10:12 GENERAL: The patient is awake, alert, and fully oriented, in no acute distress. HEAD: Normal with no signs of trauma. EYES: PERRL, extraocular movements intact, sclera anicteric, conjunctiva clear. ENT: Ears normal, oropharynx clear without exudates, moist mucous membranes. NECK: Trachea midline, full range of motion, supple. LUNGS:decreased Breath sounds BL , no wheezes, no crackles, no accessory muscle use. HEART: Regular rate and rhythm, S1, S2 without murmur, rub or gallop. ABDOMEN: Soft, nontender, nondistended, normoactive bowel sounds, no guarding, no rebound, no hepatosplenomegaly, no masses. EXTREMITIES: 2+ pulses, warm, well-perfused, no edema. NEUROLOGICAL: Cranial nerves II through XII grossly intact. Normal speech, gait not observed. PSYCH: Normal mood, normal affect. SKIN: Warm, dry, normal turgor, no rashes or lesions noted CBCD WBC 5.6 K/mm3 (4.0-10.0) 07/24/19 06:18 RBC 4.48 M/mm3 (3.60-5.2) 07/24/19 06:18 Hgb 11.4 GM/dL (10.7-15.3) 07/24/19 06:18 Hct 35.1 % (32.4-45.2) 07/24/19 06:18 MCV 78.3 fl (80-96) L 07/24/19 06:18 MCHC 32.5 g/dl (32.0-36.0) 07/24/19 06:18 RDW 16.2 % (11.6-15.6) H 07/24/19 06:18 Plt Count 198 K/MM3 (134-434) 07/24/19 06:18 MPV 8.9 fl (7.5-11.1) 07/24/19 06:18 CMP Sodium 138 mmol/L (136-145) 07/24/19 06:18 Potassium 4.1 mmol/L (3.5-5.1) 07/24/19 06:18 Chloride 102 mmol/L (98-107) 07/24/19 06:18 Carbon Dioxide 33 mmol/L (21-32) H 07/24/19 06:18 Anion Gap 4 MMOL/L (8-16) L 07/24/19 06:18 BUN 24.7 mg/dL (7-18) H 07/24/19 06:18 Creatinine 0.9 mg/dL (0.55-1.3) 07/24/19 06:18 Random Glucose 111 mg/dL (74-106) H 07/24/19 06:18 Calcium 9.0 mg/dL (8.5-10.1) 07/24/19 06:18 Total Bilirubin 0.4 mg/dL (0.2-1) 07/23/19 13:00 AST 14 U/L (15-37) L 07/23/19 13:00 ALT 19 U/L (13-61) 07/23/19 13:00 Alkaline Phosphatase 102 U/L (45-117) 07/23/19 13:00 Total Protein 7.4 g/dl (6.4-8.2) 07/23/19 13:00 Albumin 4.0 g/dl (3.4-5.0) 07/23/19 13:00 CARDIAC ENZYMES Creatine Kinase 149 U/L (26-192) 07/23/19 13:00 Troponin I 0.09 ng/ml (0.00-0.05) H 07/23/19 18:00 Current Medications Generic Name Dose Route Start Last Admin Trade Name Freq PRN Reason Stop Dose Admin Albuterol Sulfate 1 amp 07/24/19 13:25 Ventolin 0.083% Nebulizer Soln - NEB RQID PRN SHORTNESS OF BREATH Enoxaparin Sodium 40 mg 07/25/19 10:00 Lovenox - SQ DAILY IDALIA Furosemide 40 mg 07/25/19 10:00 Lasix Injection - IVPUSH DAILY IDALIA Lisinopril 40 mg 07/25/19 10:00 Prinivil PO DAILY IDALIA Metoprolol Succinate 50 mg 07/25/19 10:00 Toprol Xl - PO DAILY [facility] Home Medications Medication Instructions Recorded Albuterol 0.083% Nebulizer Kristyn 1 neb NEB QID 02/25/19 [Ventolin 0.083% Nebulizer Soln -] Budesonide/Formeterol Fumarate 2 puff IH BID #1 inhaler 02/27/19 [SYMBICORT 80/4.5mcg -] Furosemide [Lasix -] 40 mg PO DAILY #90 tablet 06/22/19 Lisinopril [Prinivil] 40 mg PO DAILY 07/23/19 Metoprolol Succinate [Toprol XL -] 50 mg PO DAILY 07/23/19 Laboratory Tests 07/23/19 07/23/19 07/23/19 13:00 13:00 18:00 Troponin I 0.10 H 0.09 H B-Natriuretic Peptide 1417.6 H echo (06/20/19) remarkable for EF 30-35%, severe global hypokinesis of LV, mod to sev MR, mod TR EKG showed NSR, LBBB, HR 66; unchanged from previous. ASSESSMENT AND PLAN: Patient is a 63F with pmhx of asthma, systolic CHF (06/20/19- EF 30-35%), mod- sev MR, non-ischemic cardiomyopathy presents in the ED for complaints of chest pain and sob. #Acute on Chronic Systolic CHF ; slight elevation of trops. , as per cardio to keep her on IV lasix one more day , Daily weights, I/Os, ekg, trop 0.10, unchanged from previous admissions. continue home meds: Lisinopril 40 QD, Toprol XL 50 QD #Hx of Asthma; stable. Albuterol nebs PRN. #Obesity with BMI 35: Diet/weight loss counseling #Dvt Px: Lovenox admit to tele obs possible dc in am
[2019-07-25 08:17] LABS: BASO % 0.5 % (0-2.0); EOS % 3.9 % (0-4.5); HEMATOCRIT 35.2 % (32.4-45.2); HEMOGLOBIN 11.5 GM/dL (10.7-15.3); LYMPH % 24.4 % (8-40); MCH 25.4 pg (25.7-33.7); MCHC 32.6 g/dl (32.0-36.0); MEAN PLT VOLUME 9.2 fl (7.5-11.1); MONO % 11.1 % (3.8-10.2); NEUT % 60.1 % (42.8-82.8); PLATELET COUNT 183 K/MM3 (134-434); RBC 4.51 M/mm3 (3.60-5.2); RDW 16.4 % (11.6-15.6); WHITE BLOOD COUNT 5.8 K/mm3 (4.0-10.0)
[2019-07-25 08:34] LABS: ALBUMIN 3.8 g/dl (3.4-5.0); BILIRUBIN,TOTAL 0.7 mg/dL (0.2-1); BLOOD UREA NITROGEN 35.7 mg/dL (7-18); POTASSIUM 4.1 mmol/L (3.5-5.1); TOT PROT 7.2 g/dl (6.4-8.2)
--- NOTE | 2019-07-25 08:58 | PN ---
Teaching Attending Note Name of Resident: Grzegorz Winchester ATTENDING PHYSICIAN STATEMENT I saw and evaluated the patient. I reviewed the resident's note and discussed the case with the resident. I agree with the resident's findings and plan as documented. SUBJECTIVE: Patient is feeling better with no acute distress. Vital Signs Temperature 98.5 F 07/25/19 08:00 Pulse Rate 60 07/25/19 08:00 Respiratory Rate 20 07/25/19 08:00 Blood Pressure 130/66 07/25/19 08:00 O2 Sat by Pulse Oximetry (%) 98 07/24/19 10:12 GENERAL: The patient is awake, alert, and fully oriented, in no acute distress. HEAD: Normal with no signs of trauma. EYES: PERRL, extraocular movements intact, sclera anicteric, conjunctiva clear. ENT: Ears normal, oropharynx clear without exudates, moist mucous membranes. NECK: Trachea midline, full range of motion, supple. LUNGS:decreased Breath sounds BL , no wheezes, no crackles, no accessory muscle use. HEART: Regular rate and rhythm, S1, S2 without murmur, rub or gallop. ABDOMEN: Soft, nontender, nondistended, normoactive bowel sounds, no guarding, no rebound, no hepatosplenomegaly, no masses. EXTREMITIES: 2+ pulses, warm, well-perfused, no edema. NEUROLOGICAL: Cranial nerves II through XII grossly intact. Normal speech, gait is stable . PSYCH: Normal mood, normal affect. SKIN: Warm, dry, normal turgor, no rashes or lesions noted CBCD WBC 5.8 K/mm3 (4.0-10.0) 07/25/19 07:30 RBC 4.51 M/mm3 (3.60-5.2) 07/25/19 07:30 Hgb 11.5 GM/dL (10.7-15.3) 07/25/19 07:30 Hct 35.2 % (32.4-45.2) 07/25/19 07:30 MCV 78.0 fl (80-96) L 07/25/19 07:30 MCHC 32.6 g/dl (32.0-36.0) 07/25/19 07:30 RDW 16.4 % (11.6-15.6) H 07/25/19 07:30 Plt Count 183 K/MM3 (134-434) 07/25/19 07:30 MPV 9.2 fl (7.5-11.1) 07/25/19 07:30 CMP Sodium 136 mmol/L (136-145) 07/25/19 07:30 Potassium 4.1 mmol/L (3.5-5.1) 07/25/19 07:30 Chloride 101 mmol/L (98-107) 07/25/19 07:30 Carbon Dioxide 29 mmol/L (21-32) 07/25/19 07:30 Anion Gap 6 MMOL/L (8-16) L 07/25/19 07:30 BUN 35.7 mg/dL (7-18) H 07/25/19 07:30 Creatinine 1.0 mg/dL (0.55-1.3) 07/25/19 07:30 Random Glucose 108 mg/dL (74-106) H 07/25/19 07:30 Calcium 9.0 mg/dL (8.5-10.1) 07/25/19 07:30 Total Bilirubin 0.7 mg/dL (0.2-1) 07/25/19 07:30 AST 14 U/L (15-37) L 07/25/19 07:30 ALT 21 U/L (13-61) 07/25/19 07:30 Alkaline Phosphatase 100 U/L (45-117) 07/25/19 07:30 Total Protein 7.2 g/dl (6.4-8.2) 07/25/19 07:30 Albumin 3.8 g/dl (3.4-5.0) 07/25/19 07:30 CARDIAC ENZYMES Creatine Kinase 149 U/L (26-192) 07/23/19 13:00 Troponin I 0.09 ng/ml (0.00-0.05) H 07/23/19 18:00 Current Medications Generic Name Dose Route Start Last Admin Trade Name Freq PRN Reason Stop Dose Admin Albuterol Sulfate 1 amp 07/24/19 13:25 Ventolin 0.083% Nebulizer Soln - NEB RQID PRN SHORTNESS OF BREATH Enoxaparin Sodium 40 mg 07/25/19 10:00 Lovenox - SQ DAILY IDALIA Furosemide 40 mg 07/25/19 10:00 Lasix Injection - IVPUSH DAILY [facility] Lisinopril 40 mg 07/25/19 10:00 Prinivil PO DAILY [facility] Metoprolol Succinate 50 mg 07/25/19 10:00 Toprol Xl - PO DAILY [facility] Home Medications Medication Instructions Recorded Albuterol 0.083% Nebulizer Kristyn 1 neb NEB QID 02/25/19 [Ventolin 0.083% Nebulizer Soln -] Budesonide/Formeterol Fumarate 2 puff IH BID #1 inhaler 02/27/19 [SYMBICORT 80/4.5mcg -] Furosemide [Lasix -] 40 mg PO DAILY #90 tablet 06/22/19 Lisinopril [Prinivil] 40 mg PO DAILY 07/23/19 Metoprolol Succinate [Toprol XL -] 50 mg PO DAILY 07/23/19 Laboratory Tests 07/23/19 07/23/19 07/23/19 13:00 13:00 18:00 Troponin I 0.10 H 0.09 H B-Natriuretic Peptide 1417.6 H echo (06/20/19) remarkable for EF 30-35%, severe global hypokinesis of LV, mod to sev MR, mod TR EKG showed NSR, LBBB, HR 66; unchanged from previous. ASSESSMENT AND PLAN: Patient is a 63F with pmhx of asthma, systolic CHF (06/20/19- EF 30-35%), mod- sev MR, non-ischemic cardiomyopathy presents in the ED for complaints of chest pain and sob. #Acute on Chronic Systolic CHF ; improved . will discharge the patient on oral lasix 40mg daily , discussed with the patient , since was taking at home as per basis. discussed with cardio. DR. Pierce . continue home meds: Lisinopril 40 QD , Toprol XL 50 QD, follow up with dr. pierce's office by next week. # Elevated trop 0.10, unchanged from previous admissions. #Hx of Asthma; stable. Albuterol nebs PRN. #Obesity with BMI 35: Diet/weight loss counseling dc patient home.
[2019-07-25] MEDS ORDERED: ENOXAPARIN NA (PORCINE) 40 MG/0.4 ML DISP.SYRIN SQ SCH (10:00)
[2019-07-25] MEDS ORDERED: LISINOPRIL 20 MG TABLET (FP) PO SCH (10:00)
[2019-07-25] MEDS ORDERED: FUROSEMIDE 40 MG/4 ML INJECTABLE VIAL IVPUSH SCH (10:00)
[2019-07-25 11:12] VITALS: BP 130/66; PULSE 60; TEMP 98.5
--- NOTE | 2019-07-25 14:52 | DS ---
Physical Exam: SUBJECTIVE: Patient seen and examined. Pt today remains asymptomatic, afebrile, without any further c/o or issues. Pt is breathing well, no longer is experiencing any chest pain. No overnight events. Denies f/c/n/v/d, sob, abdominal pain. OBJECTIVE: Vital Signs Period Temp Pulse Resp BP Sys/Gatica Pulse Ox Last 24 Hr 97.6 F-98.5 F 51-60 18-20 93-130/36-66 PHYSICAL EXAM GENERAL: The patient is awake, alert, and fully oriented, in no acute distress. EYES: PERRL, extraocular movements intact ENT: moist mucous membranes. NECK: full range of motion, supple. LUNGS: Breath sounds equal, clear to auscultation bilaterally, no wheezes, no crackles. Lung have improved significantly HEART: Regular rate and rhythm, S1, S2 without murmur, rub or gallop. ABDOMEN: Soft, nontender, nondistended, normoactive bowel sounds, no guarding, EXTREMITIES: 2+ pulses, warm, well-perfused, mild edema b/l LE NEUROLOGICAL: Cranial nerves II through XII grossly intact. PSYCH: Normal mood, normal affect. LABS Laboratory Results - last 24 hr CBC,CMP WBC 5.8 K/mm3 (4.0-10.0) 07/25/19 07:30 RBC 4.51 M/mm3 (3.60-5.2) 07/25/19 07:30 Hgb 11.5 GM/dL (10.7-15.3) 07/25/19 07:30 Hct 35.2 % (32.4-45.2) 07/25/19 07:30 MCV 78.0 fl (80-96) L 07/25/19 07:30 MCH 25.4 pg (25.7-33.7) L 07/25/19 07:30 MCHC 32.6 g/dl (32.0-36.0) 07/25/19 07:30 RDW 16.4 % (11.6-15.6) H 07/25/19 07:30 Plt Count 183 K/MM3 (134-434) 07/25/19 07:30 MPV 9.2 fl (7.5-11.1) 07/25/19 07:30 Absolute Neuts (auto) 3.5 K/mm3 (1.5-8.0) 07/25/19 07:30 Neutrophils % 60.1 % (42.8-82.8) 07/25/19 07:30 Lymphocytes % 24.4 % (8-40) 07/25/19 07:30 Monocytes % 11.1 % (3.8-10.2) H 07/25/19 07:30 Eosinophils % 3.9 % (0-4.5) 07/25/19 07:30 Basophils % 0.5 % (0-2.0) 07/25/19 07:30 Nucleated RBC % 0 % (0-0) 07/25/19 07:30 Platelet Estimate Adequate 07/23/19 13:00 Platelet Comment 07/23/19 13:00 Sodium 136 mmol/L (136-145) 07/25/19 07:30 Potassium 4.1 mmol/L (3.5-5.1) 07/25/19 07:30 Chloride 101 mmol/L (98-107) 07/25/19 07:30 Carbon Dioxide 29 mmol/L (21-32) 07/25/19 07:30 Anion Gap 6 MMOL/L (8-16) L 07/25/19 07:30 BUN 35.7 mg/dL (7-18) H 07/25/19 07:30 Creatinine 1.0 mg/dL (0.55-1.3) 07/25/19 07:30 Est GFR (CKD-EPI)AfAm 69.92 07/25/19 07:30 Est GFR (CKD-EPI)NonAf 60.33 07/25/19 07:30 Random Glucose 108 mg/dL (74-106) H 07/25/19 07:30 Calcium 9.0 mg/dL (8.5-10.1) 07/25/19 07:30 Phosphorus 5.0 mg/dL (2.5-4.9) H 07/24/19 06:18 Magnesium 2.2 mg/dL (1.8-2.4) 07/24/19 06:18 Total Bilirubin 0.7 mg/dL (0.2-1) 07/25/19 07:30 AST 14 U/L (15-37) L 07/25/19 07:30 ALT 21 U/L (13-61) 07/25/19 07:30 Alkaline Phosphatase 100 U/L (45-117) 07/25/19 07:30 Creatine Kinase 149 U/L (26-192) 07/23/19 13:00 Troponin I 0.09 ng/ml (0.00-0.05) H 07/23/19 18:00 B-Natriuretic Peptide 1417.6 pg/ml (5-125) H 07/23/19 13:00 Total Protein 7.2 g/dl (6.4-8.2) 07/25/19 07:30 Albumin 3.8 g/dl (3.4-5.0) 07/25/19 07:30 Home Medications Medication Instructions Recorded Albuterol 0.083% Nebulizer Kristyn 1 neb NEB QID 02/25/19 [Ventolin 0.083% Nebulizer Soln -] Budesonide/Formeterol Fumarate 2 puff IH BID #1 inhaler 02/27/19 [SYMBICORT 80/4.5mcg -] Lisinopril [Prinivil] 40 mg PO DAILY 07/23/19 Metoprolol Succinate [Toprol XL -] 50 mg PO DAILY 07/23/19 Furosemide [Lasix -] 40 mg PO DAILY #30 tablet 07/25/19 HOSPITAL COURSE: Date of Admission:07/23/19 63 y/o F, w/ pmh of asthma, systolic CHF (06/20/19- EF 30-35%), mod-sev MR, non- ischemic cardiomyopathy, presents w/ sob and nonradiating, localized dull, parasternal chest pain of 2 days duration is admitted for CHF exacerbation. Pt' s CXR showed congestive changes and was treated with lasix, and her symptoms improved on the same day. Pt was monitored overnight and she remained asymptomatic. She is scheduled for an ICD placement on Sunday with her hospice music therapy. Pt was discharged home on instructions for fluid restriction and diet control. #CHF exacerbation- Acute on chronic Lasix 40 given IV CXR- congestive changes seen Echo (06/20/19) remarkable for EF 30-35%, severe global hypokinesis of LV, mod to sev MR, mod TR EKG showed NSR, LBBB, HR 66; unchanged from previous. Troponins are equivocal w/ normal CK As per Cardio- Daily weights, r/p BMP for renal fxn Outpt ICD placement is planned for Sunday as per pt Cont home meds: Lisinopril 40 QD, Toprol XL 50 QD Date of Discharge: 07/25/19 Minutes to complete discharge: 35 Discharge Summary Problems reviewed: Yes Reason For Visit: CHF , CHEST PAIN Condition: Improved - Instructions Diet, Activity, Other Instructions: You were admitted to the hospital for exacerbation of your heart failure. While you were here we monitored your heart and gave you medications to improve your symptoms. It is very important to try and eat low salt diet and to not drink over 1.5 liters of fluid. Try to exercise to maintain good function of your heart. Please continue all your home medications as prescribed. Please make an appointment to follow up with the hospice music therapy to monitor your heart in one week. Make an appointment with your primary care physician within one week. Return to the Emergency Department if you have any nausea, vomiting, headache, shortness of breath, or dizziness. Referrals: Mark Jhaveri MD [Staff Physician] - 1 Week Becky Berrios MD [Primary Care Provider] - 1 Week Disposition: HOME - Home Medications Comprehensive Discharge Medication List: Ambulatory Orders Albuterol 0.083% Nebulizer Kristyn [Ventolin 0.083% Nebulizer Soln -] 1 neb NEB QID 02/25/19 Budesonide/Formeterol Fumarate [SYMBICORT 80/4.5mcg -] 2 puff IH BID #1 inhaler 02/27/19 Lisinopril [Prinivil] 40 mg PO DAILY 07/23/19 Metoprolol Succinate [Toprol XL -] 50 mg PO DAILY 07/23/19 Furosemide [Lasix -] 40 mg PO DAILY #30 tablet 07/25/19 This patient is new to me today: Yes Date on this admission: 07/25/19 Emergency Visit: Yes ED Registration Date: 07/23/19 Care time: The patient presented to the Emergency Department on the above date and was hospitalized for further evaluation of their emergent condition. Critical Care patient: No - Discharge Referral Referred to [facility] No ATTENDING PHYSICIAN STATEMENT I saw and evaluated the patient. I reviewed the resident's note and discussed the case with the resident. I agree with the resident's findings and plan as documented. SUBJECTIVE: OBJECTIVE: ASSESSMENT AND PLAN:
--- NOTE | 2019-07-29 11:21 | EKG ---
Test Reason : Blood Pressure : / mmHG Vent. Rate : 051 BPM Atrial Rate : 051 BPM P-R Int : 208 ms QRS Dur : 158 ms QT Int : 550 ms P-R-T Axes : 051 020 163 degrees QTc Int : 506 ms SINUS BRADYCARDIA LEFT BUNDLE BRANCH BLOCK ABNORMAL ECG WHEN COMPARED WITH ECG OF 23-JUL-2019 11:05, T WAVE INVERSION LESS EVIDENT IN INFERIOR LEADS QT HAS LENGTHENED Confirmed by MD Narayan, Abebe ([id number]) on 07/29/2019 11:20:58 AM Referred By: Confirmed By:Abebe Busch MD
== END 2019-07-25 11:44 | disposition home or self-care (01) ==
LOC: JER 11:01 → INTOOBSV 13:20 → JERBED 13:20 → J8W 07-24 12:57
PROVIDERS: ADMIT Internal Medicine; ATTEND Internal Medicine
PROC: 3E033GC Introduction of Other Therapeutic Substance into Peripheral Vein, Percutaneous Approach (ICD-10-PCS; principal; 2019-07-23)
PROC: 3E013GC Introduction of Other Therapeutic Substance into Subcutaneous Tissue, Percutaneous Approach (ICD-10-PCS; 2019-07-23)
DX: I11.0 Hypertensive heart disease with heart failure (principal); I50.23 Acute on chronic systolic (congestive) heart failure; R07.89 Other chest pain; F78 Other intellectual disabilities; I25.10 Atherosclerotic heart disease of native coronary artery without angina pectoris; J45.909 Unspecified asthma, uncomplicated; R01.1 Cardiac murmur, unspecified; I42.8 Other cardiomyopathies; R79.89 Other specified abnormal findings of blood chemistry; E66.9 Obesity, unspecified; Z68.35 Body mass index [BMI] 35.0-35.9, adult; Z98.61 Coronary angioplasty status; Z88.2 Allergy status to sulfonamides; Z86.79 Personal history of other diseases of the circulatory system; Z96.653 Presence of artificial knee joint, bilateral
CPT/HCPCS: 36415; 71045-TC-FY; 80048; 80053; 82550; 83735; 83880; 84100; 84484; 85025; 85027; 85610; 93005; 93010; 96372; 96374; 96376; 99285-25; G0378

== ENCOUNTER 2020-07-27 14:38 | Observation (INO) | payer OTHER ==
[2020-07-27 15:39] LABS: BASO % 0.6 % (0-2.0); EOS % 2.8 % (0-4.5); HEMATOCRIT 34.7 % (32.4-45.2); HEMOGLOBIN 10.9 GM/dL (10.7-15.3); LYMPH % 25.5 % (8-40); MCH 24.3 pg (25.7-33.7); MCHC 31.4 g/dl (32.0-36.0); MEAN CELL VOLUME 77.4 fl (80-96); MEAN PLT VOLUME 8.9 fl (7.5-11.1); MONO % 8.4 % (3.8-10.2); NEUT % 62.7 % (42.8-82.8); PLATELET COUNT 208 K/MM3 (134-434); RBC 4.49 M/mm3 (3.60-5.2); RDW 17.7 % (11.6-15.6); WHITE BLOOD COUNT 6.3 K/mm3 (4.0-10.0)
[2020-07-27 15:46] LABS: INR 1.01 (0.83-1.09); PROTHROMBIN TIME (PATIENT) 12.2 SEC (9.7-13.0)
[2020-07-27 16:16] LABS: CHLORIDE 103 mmol/L (98-107); POTASSIUM 4.2 mmol/L (3.5-5.1); SODIUM 140 mmol/L (136-145)
[2020-07-27 16:18] LABS: ALBUMIN 3.9 g/dl (3.4-5.0); ANION GAP 6 MMOL/L (8-16); BLOOD UREA NITROGEN 14.3 mg/dL (7-18); CALCIUM 9.1 mg/dL (8.5-10.1); CO2 31 mmol/L (21-32); GLUCOSE,RANDOM 104 mg/dL (74-106); MAGNESIUM 2.2 mg/dL (1.8-2.4)
[2020-07-27 16:21] LABS: SGPT/ALT 17 U/L (13-61)
[2020-07-27 16:22] LABS: SGOT/AST 12 U/L (15-37)
[2020-07-27 16:23] LABS: BILIRUBIN,TOTAL 0.3 mg/dL (0.2-1); TOT PROT 7.7 g/dl (6.4-8.2)
[2020-07-27 16:24] LABS: ALK PHOS 107 U/L (45-117)
[2020-07-27 16:27] LABS: N-TERMINAL BNP 288.8 pg/ml (5-125)
[2020-07-27 21:11] LABS: PH,URINE 5.5 (5.0-8.0); URINE APPEARANCE CLEAR; URINE BILIRUBIN NEGATIVE (NEGATIVE); URINE COLOR YELLOW; URINE GLUCOSE (UA) NEGATIVE (NEGATIVE); URINE KETONE NEGATIVE (NEGATIVE); URINE LEUK ESTERASE NEGATIVE (NEGATIVE); URINE NITRITE NEGATIVE (NEGATIVE); URINE PROTEIN NEGATIVE (NEGATIVE)
[2020-07-27] MEDS ORDERED: BUDESONIDE/FORMETEROL FUMARATE 80/4.5 mcg INHALER IH SCH (22:00)
[2020-07-27] MEDS ORDERED: ALBUTEROL SO4 0.083% IH SOL 2.5 MG/3 ML VIAL.NEB. NEB SCH (22:00)
[2020-07-27] MEDS ORDERED: CARVEDILOL 12.5 MG TABLET (FP) ONE (23:08)
[2020-07-27] MEDS: CARVEDILOL 25 MG TABLET (FP) PO SCH (23:13)
[2020-07-28 04:02] VITALS: BMI 37.4
[2020-07-28 06:17] VITALS: PULSE 63
[2020-07-28 07:30] LABS: BASO % 0.3 % (0-2.0); EOS % 2.3 % (0-4.5); HEMATOCRIT 34.5 % (32.4-45.2); LYMPH % 21.8 % (8-40); MCH 24.7 pg (25.7-33.7); MCHC 31.8 g/dl (32.0-36.0); MEAN CELL VOLUME 77.6 fl (80-96); MEAN PLT VOLUME 9.4 fl (7.5-11.1); MONO % 7.4 % (3.8-10.2); NEUT % 68.2 % (42.8-82.8); PLATELET COUNT 198 K/MM3 (134-434); RBC 4.44 M/mm3 (3.60-5.2); RDW 17.4 % (11.6-15.6); WHITE BLOOD COUNT 6.4 K/mm3 (4.0-10.0)
[2020-07-28 07:39] LABS: CALCIUM 9.2 mg/dL (8.5-10.1); CHLORIDE 103 mmol/L (98-107); POTASSIUM 4.1 mmol/L (3.5-5.1); SODIUM 139 mmol/L (136-145)
[2020-07-28 07:40] LABS: ALBUMIN 3.8 g/dl (3.4-5.0); ANION GAP 8 MMOL/L (8-16); BLOOD UREA NITROGEN 17.2 mg/dL (7-18); CO2 28 mmol/L (21-32); GLUCOSE,RANDOM 110 mg/dL (74-106); MAGNESIUM 2.2 mg/dL (1.8-2.4)
[2020-07-28 07:42] LABS: CHOLESTEROL 151 mg/dL (50-200)
[2020-07-28 07:43] LABS: CREATININE 0.7 mg/dL (0.55-1.3); PHOSPHOROUS 4.2 mg/dL (2.5-4.9); SGOT/AST 11 U/L (15-37); SGPT/ALT 16 U/L (13-61); TRIGLYCERIDES 73 mg/dL (0-150)
[2020-07-28 07:44] LABS: BILIRUBIN,TOTAL 0.4 mg/dL (0.2-1); LDL CHOLESTEROL (ONLY SJRH) 96 mg/dL (5-100); TOT PROT 7.5 g/dl (6.4-8.2)
[2020-07-28 07:45] LABS: ALK PHOS 109 U/L (45-117); HDL CHOLESTEROL 50 mg/dL (40-60)
[2020-07-28] MEDS ORDERED: SACUBITRIL/VALSARTAN 49 MG-51 MG TABLET PO SCH (10:00)
[2020-07-28] MEDS ORDERED: FUROSEMIDE 20 MG TABLET (FP) PO SCH (10:00)
[2020-07-28] MEDS ORDERED: ENOXAPARIN NA (PORCINE) 40 MG/0.4 ML DISP.SYRIN SQ SCH (10:00)
[2020-07-28] MEDS ORDERED: SPIRONOLACTONE 25 MG TABLET PO SCH (10:00)
[2020-07-28 11:06] VITALS: BP 140/70; TEMP 98.2
[2020-07-28] MEDS: CARVEDILOL 25 MG TABLET (FP) PO SCH (11:29)
== END 2020-07-28 18:22 | disposition home or self-care (01) ==
LOC: JER 14:38 → JERBED 18:06 → J4W 07-28 01:26
PROVIDERS: ATTEND Nurse Practitioner Family
PROC: 3E023GC Introduction of Other Therapeutic Substance into Muscle, Percutaneous Approach (ICD-10-PCS; principal; 2020-07-27)
DX: I11.0 Hypertensive heart disease with heart failure (principal); R73.03 Prediabetes; J45.909 Unspecified asthma, uncomplicated; Z68.37 Body mass index [BMI] 37.0-37.9, adult; I42.8 Other cardiomyopathies; Z95.0 Presence of cardiac pacemaker; R09.02 Hypoxemia; R06.89 Other abnormalities of breathing; F71 Moderate intellectual disabilities; I34.0 Nonrheumatic mitral (valve) insufficiency; E66.8 Other obesity; Z88.2 Allergy status to sulfonamides; R94.31 Abnormal electrocardiogram [ECG] [EKG]; I50.30 Unspecified diastolic (congestive) heart failure; Z88.1 Allergy status to other antibiotic agents; Z87.891 Personal history of nicotine dependence; M54.9 Dorsalgia, unspecified
CPT/HCPCS: 36415; 71046-TC-FY; 80053; 80061; 81003; 82550; 83036; 83721; 83735; 83880; 84100; 84439; 84443; 84484; 85025; 85610; 85730; 87086; 93005; 93010; 93306-TC; 96372; 99285-25; C9803; G0378; U0003

== ENCOUNTER 2020-09-13 14:48 | Emergency (ER) | payer OTHER ==
[2020-09-13 15:21] VITALS: BP 127/89; PULSE 69; TEMP 98.2; BMI 37.1
[2020-09-13] MEDS ORDERED: KETOROLAC TROMETHAMINE 60 MG/2 ML VIAL IM ONE (16:37)
[2020-09-13] MEDS ORDERED: KETOROLAC TROMETHAMINE 60 MG/2 ML VIAL ONE (16:52)
== END 2020-09-13 17:04 | disposition home or self-care (01) ==
LOC: JERFT 14:48
PROC: 3E0233Z Introduction of Anti-inflammatory into Muscle, Percutaneous Approach (ICD-10-PCS; principal; 2020-09-13)
DX: S29.011A Strain of muscle and tendon of front wall of thorax, initial encounter (principal)
CPT/HCPCS: 93005; 93010; 99284-25

== ENCOUNTER 2021-04-01 14:40 | Emergency (ER) | payer OTHER ==
[2021-04-01 15:04] VITALS: TEMP 98.2; BMI 35.5
[2021-04-01] MEDS ORDERED: predniSONE 20 MG TABLET (UD) PO ONE (16:35)
[2021-04-01] MEDS ORDERED: ALBUTEROL SO4 HFA INHALER IH PRN (16:36)
[2021-04-01] MEDS ORDERED: predniSONE 20 MG TABLET (UD) ONE (16:56)
[2021-04-01] MEDS ORDERED: ALBUTEROL SO4 HFA INHALER IH ONE (17:03)
[2021-04-01 17:49] VITALS: BP 118/68; PULSE 80
== END 2021-04-01 17:48 | disposition home or self-care (01) ==
LOC: JER 14:40
DX: J45.901 Unspecified asthma with (acute) exacerbation (principal)
CPT/HCPCS: 71046-TC-FY; 99284-25

== ENCOUNTER 2021-05-20 16:57 | Emergency (ER) | payer OTHER ==
[2021-05-20 17:34] VITALS: BP 93/50; PULSE 73; TEMP 98.3; BMI 35.5
[2021-05-20] MEDS ORDERED: ACETAMINOPHEN 500 MG TABLET (FP) PO ONE (18:20)
[2021-05-20] MEDS ORDERED: ACETAMINOPHEN 500 MG TABLET (FP) ONE (18:21)
[2021-05-20] MEDS ORDERED: DIPHTH,PERTUSS(ACELL),TET 0.5 ML DISP.SYRIN IM ONE ×2 (19:27→19:28)
== END 2021-05-20 20:25 | disposition home or self-care (01) ==
LOC: JERFT 16:57
PROC: 3E0234Z Introduction of Serum, Toxoid and Vaccine into Muscle, Percutaneous Approach (ICD-10-PCS; principal; 2021-05-20)
DX: M79.671 Pain in right foot (principal); M79.672 Pain in left foot; S61.215A Laceration without foreign body of left ring finger without damage to nail, initial encounter
CPT/HCPCS: 73630-TC-LT; 73630-TC-RT-FY; 90715; 99284-25

== ENCOUNTER 2021-06-09 09:23 | Emergency (ER) | payer OTHER ==
[2021-06-09 09:35] VITALS: TEMP 98.2; BMI 35.7
[2021-06-09] MEDS ORDERED: ALBUTEROL SO4 2.5/IPRATROPIUM 0.5 INH SOL 3 ML VIAL.NEB. NEB SCH (10:15)
[2021-06-09] MEDS ORDERED: ALBUTEROL SO4 2.5/IPRATROPIUM 0.5 INH SOL 3 ML VIAL.NEB. NEB ONE ×2 (10:16→10:18)
[2021-06-09 12:19] LABS: BASO % 0.6 % (0-2.0); EOS % 1.3 % (0-4.5); HEMOGLOBIN 9.4 GM/dL (10.7-15.3); LYMPH % 16.8 % (8-40); MCH 23.8 pg (25.7-33.7); MCHC 31.4 g/dl (32.0-36.0); MEAN CELL VOLUME 75.8 fl (80-96); MEAN PLT VOLUME 8.4 fl (7.5-11.1); MONO % 12.7 % (3.8-10.2); NEUT % 68.6 % (42.8-82.8); PLATELET COUNT 253 10^3/uL (134-434); RBC 3.96 M/mm3 (3.60-5.2); RDW 19.3 % (11.6-15.6); WHITE BLOOD COUNT 5.9 K/mm3 (4.0-10.0)
[2021-06-09 12:36] LABS: CHLORIDE 103 mmol/L (98-107); SODIUM 137 mmol/L (136-145)
[2021-06-09 12:39] LABS: ALBUMIN 3.4 g/dl (3.4-5.0); CALCIUM 8.9 mg/dL (8.5-10.1)
[2021-06-09 12:40] LABS: ANION GAP 8 MMOL/L (8-16); BLOOD UREA NITROGEN 8.4 mg/dL (7-18); CO2 26 mmol/L (21-32); GLUCOSE,RANDOM 91 mg/dL (74-106)
[2021-06-09 12:42] LABS: CREATININE 0.7 mg/dL (0.55-1.3)
[2021-06-09 12:43] LABS: SGOT/AST 9 U/L (15-37); SGPT/ALT 10 U/L (13-61)
[2021-06-09 12:44] LABS: BILIRUBIN,TOTAL 0.7 mg/dL (0.2-1); TOT PROT 7.6 g/dl (6.4-8.2)
[2021-06-09 12:45] LABS: ALK PHOS 73 U/L (45-117)
[2021-06-09 12:48] LABS: N-TERMINAL BNP 988.4 pg/ml (5-125)
[2021-06-09] MEDS ORDERED: AMOX TR/POT CLAV 875MG/125MG TABLETS (FP) PO ONE (13:02)
[2021-06-09] MEDS ORDERED: AZITHROMYCIN 250 MG TABLET PO ONE (13:03)
[2021-06-09] MEDS ORDERED: AMOX TR/POT CLAV 875MG/125MG TABLETS (FP) ONE (13:09)
[2021-06-09] MEDS ORDERED: AZITHROMYCIN 250 MG TABLET ONE (13:09)
[2021-06-09 13:19] VITALS: BP 138/74; PULSE 80
== END 2021-06-09 13:15 | disposition home or self-care (01) ==
LOC: JER 09:23
PROC: 3E0F7GC Introduction of Other Therapeutic Substance into Respiratory Tract, Via Natural or Artificial Opening (ICD-10-PCS; principal; 2021-06-09)
DX: J18.9 Pneumonia, unspecified organism (principal)
CPT/HCPCS: 36415; 71046-TC-FY; 80053; 83880; 84484; 85025; 87804; 93005; 93010; 99284-25; C9803; U0003; U0005

== ENCOUNTER 2021-06-25 09:17 | Inpatient (IN) | payer OTHER ==
[2021-06-25 09:39] VITALS: BMI 34.9
[2021-06-25 11:16] LABS: BASO % 0.8 % (0-2.0); EOS % 2.1 % (0-4.5); HEMATOCRIT 29.7 % (32.4-45.2); HEMOGLOBIN 9.5 GM/dL (10.7-15.3); LYMPH % 13.6 % (8-40); MCH 24.1 pg (25.7-33.7); MCHC 31.9 g/dl (32.0-36.0); MEAN CELL VOLUME 75.5 fl (80-96); MEAN PLT VOLUME 8.5 fl (7.5-11.1); NEUT % 72.5 % (42.8-82.8); PLATELET COUNT 308 10^3/uL (134-434); RBC 3.93 M/mm3 (3.60-5.2); RDW 19.2 % (11.6-15.6); WHITE BLOOD COUNT 5.5 K/mm3 (4.0-10.0)
[2021-06-25 11:26] LABS: INR 1.16 (0.83-1.09); PROTHROMBIN TIME (PATIENT) 14.1 SEC (9.7-13.0)
[2021-06-25 11:28] LABS: ACTIVATED PTT 30.2 SECONDS (25.2-36.5)
[2021-06-25 11:33] LABS: CHLORIDE 105 mmol/L (98-107); SODIUM 137 mmol/L (136-145)
[2021-06-25 11:35] LABS: CALCIUM 8.7 mg/dL (8.5-10.1)
[2021-06-25 11:36] LABS: ANION GAP 7 MMOL/L (8-16); CO2 26 mmol/L (21-32)
[2021-06-25 11:38] LABS: GLUCOSE,RANDOM 93 mg/dL (74-106)
[2021-06-25 11:39] LABS: CREATININE 0.7 mg/dL (0.55-1.3); SGOT/AST 22 U/L (15-37); SGPT/ALT 7 U/L (13-61)
[2021-06-25 11:40] LABS: BILIRUBIN,TOTAL 0.5 mg/dL (0.2-1)
[2021-06-25 11:41] LABS: TOT PROT 7.5 g/dl (6.4-8.2)
[2021-06-25 11:42] LABS: ALK PHOS 65 U/L (45-117)
[2021-06-25] MEDS ORDERED: ALBUTEROL SO4 0.5 % INH SOLN 2.5 MG/0.5 ML VIAL.NEB. NEB PRN (15:58)
[2021-06-25] MEDS: ALBUTEROL SO4 2.5/IPRATROPIUM 0.5 INH SOL 3 ML VIAL.NEB. NEB SCH (20:22)
[2021-06-25] MEDS ORDERED: PT OWN MED DRAWER 7, Y5N ONE (21:17)
[2021-06-25] MEDS: CARVEDILOL 12.5 MG TABLET (FP) PO SCH (21:22)
[2021-06-25] MEDS: SACUBITRIL/VALSARTAN 49 MG-51 MG TABLET PO SCH (22:24)
[2021-06-26] MEDS: LEVOTHYROXINE NA 25 MCG TABLET (FP) PO SCH (06:32)
[2021-06-26] MEDS: ALBUTEROL SO4 2.5/IPRATROPIUM 0.5 INH SOL 3 ML VIAL.NEB. NEB SCH ×3 (08:14→20:27)
[2021-06-26] MEDS: CARVEDILOL 12.5 MG TABLET (FP) PO SCH ×2 (09:14→21:48)
[2021-06-26] MEDS: FUROSEMIDE 20 MG TABLET (FP) PO SCH (09:14)
[2021-06-26] MEDS: SPIRONOLACTONE 25 MG TABLET PO SCH (09:14)
[2021-06-26] MEDS: SACUBITRIL/VALSARTAN 49 MG-51 MG TABLET PO SCH ×2 (09:14→21:49)
[2021-06-27] MEDS: LEVOTHYROXINE NA 25 MCG TABLET (FP) PO SCH (06:01)
[2021-06-27] MEDS: ALBUTEROL SO4 2.5/IPRATROPIUM 0.5 INH SOL 3 ML VIAL.NEB. NEB SCH ×3 (08:35→20:08)
[2021-06-27 08:50] LABS: BASO % 0.5 % (0-2.0); EOS % 3.3 % (0-4.5); HEMATOCRIT 29.2 % (32.4-45.2); HEMOGLOBIN 9.3 GM/dL (10.7-15.3); LYMPH % 15.8 % (8-40); MCH 23.7 pg (25.7-33.7); MCHC 31.9 g/dl (32.0-36.0); MEAN CELL VOLUME 74.4 fl (80-96); MONO % 13.8 % (3.8-10.2); NEUT % 66.6 % (42.8-82.8); PLATELET COUNT 281 10^3/uL (134-434); RBC 3.93 M/mm3 (3.60-5.2); RDW 19.3 % (11.6-15.6); WHITE BLOOD COUNT 4.7 K/mm3 (4.0-10.0)
[2021-06-27 09:11] LABS: ALBUMIN 2.9 g/dl (3.4-5.0); BLOOD UREA NITROGEN 7.4 mg/dL (7-18); CALCIUM 8.6 mg/dL (8.5-10.1); MAGNESIUM 2.2 mg/dL (1.8-2.4)
[2021-06-27 09:15] LABS: CREATININE 0.7 mg/dL (0.55-1.3); PHOSPHOROUS 4.2 mg/dL (2.5-4.9)
[2021-06-27 09:16] LABS: BILIRUBIN,TOTAL 0.5 mg/dL (0.2-1); TOT PROT 7.1 g/dl (6.4-8.2)
[2021-06-27] MEDS ORDERED: PT OWN MED DRAWER 7, Y5N ONE ×3 (09:40→20:57)
[2021-06-27] MEDS: SPIRONOLACTONE 25 MG TABLET PO SCH (09:52)
[2021-06-27] MEDS: FUROSEMIDE 20 MG TABLET (FP) PO SCH (09:52)
[2021-06-27] MEDS: CARVEDILOL 12.5 MG TABLET (FP) PO SCH ×2 (09:52→23:10)
[2021-06-27] MEDS: SACUBITRIL/VALSARTAN 49 MG-51 MG TABLET PO SCH ×2 (09:52→21:00)
[2021-06-27] MEDS: BUDESONIDE/FORMETEROL FUMARATE 80/4.5 mcg INHALER IH SCH ×2 (12:32→20:59)
[2021-06-27] MEDS ORDERED: LIDOCAINE 5% TOPICAL PATCH TP ONE (15:11)
[2021-06-27] MEDS: ASPIRIN COATED 81 MG TABLET.EC PO SCH (17:20)
[2021-06-27 17:57] LABS: BODY FLUID MESOTHELIAL 6 %; BODY FLUID MONOCYTE 19 %
[2021-06-27] MEDS: ACETAMINOPHEN 325 MG TABLET (FP) PO PRN (21:00)
[2021-06-27] MEDS ORDERED: LIDOCAINE PATCH REMOVAL MC SCH (22:00)
[2021-06-28] MEDS: LEVOTHYROXINE NA 25 MCG TABLET (FP) PO SCH (06:06)
[2021-06-28] MEDS: ACETAMINOPHEN 325 MG TABLET (FP) PO PRN ×2 (06:06→21:29)
[2021-06-28 06:31] LABS: BASO % 0.1 % (0-2.0); EOS % 3.6 % (0-4.5); HEMATOCRIT 28.8 % (32.4-45.2); HEMOGLOBIN 9.1 GM/dL (10.7-15.3); LYMPH % 14.8 % (8-40); MCH 23.9 pg (25.7-33.7); MCHC 31.7 g/dl (32.0-36.0); MEAN CELL VOLUME 75.4 fl (80-96); MEAN PLT VOLUME 8.4 fl (7.5-11.1); MONO % 11.3 % (3.8-10.2); NEUT % 70.2 % (42.8-82.8); PLATELET COUNT 265 10^3/uL (134-434); RBC 3.83 M/mm3 (3.60-5.2); WHITE BLOOD COUNT 5.2 K/mm3 (4.0-10.0)
[2021-06-28 06:50] LABS: CALCIUM 8.4 mg/dL (8.5-10.1)
[2021-06-28 06:51] LABS: ALBUMIN 2.7 g/dl (3.4-5.0); BLOOD UREA NITROGEN 9.5 mg/dL (7-18); MAGNESIUM 2.1 mg/dL (1.8-2.4)
[2021-06-28 06:54] LABS: CREATININE 0.7 mg/dL (0.55-1.3)
[2021-06-28 06:55] LABS: BILIRUBIN,TOTAL 0.4 mg/dL (0.2-1)
[2021-06-28 06:56] LABS: TOT PROT 6.8 g/dl (6.4-8.2)
[2021-06-28] MEDS: ALBUTEROL SO4 2.5/IPRATROPIUM 0.5 INH SOL 3 ML VIAL.NEB. NEB SCH ×3 (08:19→20:34)
[2021-06-28] MEDS: CARVEDILOL 12.5 MG TABLET (FP) PO SCH (10:16)
[2021-06-28] MEDS: FUROSEMIDE 20 MG TABLET (FP) PO SCH (10:16)
[2021-06-28] MEDS: SPIRONOLACTONE 25 MG TABLET PO SCH (10:16)
[2021-06-28] MEDS: SACUBITRIL/VALSARTAN 49 MG-51 MG TABLET PO SCH (10:16)
[2021-06-28] MEDS: BUDESONIDE/FORMETEROL FUMARATE 80/4.5 mcg INHALER IH SCH ×2 (10:24→21:30)
[2021-06-28] MEDS: ASPIRIN COATED 81 MG TABLET.EC PO SCH (10:25)
[2021-06-29] MEDS: LEVOTHYROXINE NA 25 MCG TABLET (FP) PO SCH (06:03)
[2021-06-29 07:25] LABS: BASO % 0.3 % (0-2.0); EOS % 5.7 % (0-4.5); HEMATOCRIT 28.4 % (32.4-45.2); HEMOGLOBIN 9.1 GM/dL (10.7-15.3); LYMPH % 16.7 % (8-40); MCH 23.6 pg (25.7-33.7); MEAN CELL VOLUME 73.8 fl (80-96); MEAN PLT VOLUME 8.3 fl (7.5-11.1); MONO % 11.8 % (3.8-10.2); NEUT % 65.5 % (42.8-82.8); PLATELET COUNT 255 10^3/uL (134-434); RBC 3.85 M/mm3 (3.60-5.2); RDW 19.2 % (11.6-15.6); WHITE BLOOD COUNT 5.9 K/mm3 (4.0-10.0)
[2021-06-29] MEDS: ALBUTEROL SO4 2.5/IPRATROPIUM 0.5 INH SOL 3 ML VIAL.NEB. NEB SCH ×3 (07:50→20:08)
[2021-06-29 08:08] LABS: CALCIUM 8.4 mg/dL (8.5-10.1)
[2021-06-29 08:09] LABS: ALBUMIN 2.7 g/dl (3.4-5.0); BLOOD UREA NITROGEN 9.3 mg/dL (7-18); CREATININE 0.6 mg/dL (0.55-1.3); MAGNESIUM 1.9 mg/dL (1.8-2.4)
[2021-06-29 08:10] LABS: BILIRUBIN,TOTAL 0.4 mg/dL (0.2-1)
[2021-06-29 08:13] LABS: TOT PROT 6.5 g/dl (6.4-8.2)
[2021-06-29] MEDS: ACETAMINOPHEN 325 MG TABLET (FP) PO PRN (09:03)
[2021-06-29] MEDS: BUDESONIDE/FORMETEROL FUMARATE 80/4.5 mcg INHALER IH SCH ×2 (09:04→21:17)
[2021-06-29] MEDS: ENOXAPARIN NA (PORCINE) 40 MG/0.4 ML DISP.SYRIN SQ SCH (09:04)
[2021-06-29] MEDS: ASPIRIN COATED 81 MG TABLET.EC PO SCH (09:04)
[2021-06-29] MEDS ORDERED: FAMOTIDINE 20 MG TABLET PO ONE (14:54)
[2021-06-29 15:08] LABS: BODY FLUID ALBUMIN 3.2 g/dL (Not Estab.)
[2021-06-29] MEDS ORDERED: MAGNESIUM CL 64 MG TABLET.SA PO ONE (15:15)
[2021-06-29] MEDS ORDERED: BISACODYL 5 MG TABLET.DR (FP) PO ONE (19:41)
[2021-06-29] MEDS ORDERED: DOCUSATE SODIUM 100 MG CAPSULE (FP) PO SCH (19:45)
[2021-06-29] MEDS ORDERED: PT OWN MED DRAWER 7, Y5N ONE (20:49)
[2021-06-29] MEDS: SACUBITRIL/VALSARTAN 49 MG-51 MG TABLET PO SCH (21:17)
[2021-06-29] MEDS: CARVEDILOL 12.5 MG TABLET (FP) PO SCH (21:17)
[2021-06-30] MEDS: LEVOTHYROXINE NA 25 MCG TABLET (FP) PO SCH (06:35)
[2021-06-30 06:36] LABS: BASO % 0.3 % (0-2.0); EOS % 2.8 % (0-4.5); HEMATOCRIT 27.9 % (32.4-45.2); LYMPH % 10.5 % (8-40); MCH 24.1 pg (25.7-33.7); MCHC 32.4 g/dl (32.0-36.0); MEAN CELL VOLUME 74.4 fl (80-96); MEAN PLT VOLUME 8.5 fl (7.5-11.1); MONO % 10.5 % (3.8-10.2); NEUT % 75.9 % (42.8-82.8); PLATELET COUNT 248 10^3/uL (134-434); RBC 3.76 M/mm3 (3.60-5.2); RDW 19.1 % (11.6-15.6); WHITE BLOOD COUNT 5.9 K/mm3 (4.0-10.0)
[2021-06-30 07:01] LABS: ALBUMIN 2.8 g/dl (3.4-5.0); BLOOD UREA NITROGEN 8.6 mg/dL (7-18); CALCIUM 8.4 mg/dL (8.5-10.1); MAGNESIUM 2.1 mg/dL (1.8-2.4)
[2021-06-30 07:04] LABS: CREATININE 0.6 mg/dL (0.55-1.3)
[2021-06-30 07:05] LABS: PHOSPHOROUS 4.3 mg/dL (2.5-4.9)
[2021-06-30 07:06] LABS: BILIRUBIN,TOTAL 0.4 mg/dL (0.2-1); TOT PROT 6.7 g/dl (6.4-8.2)
[2021-06-30] MEDS: ALBUTEROL SO4 2.5/IPRATROPIUM 0.5 INH SOL 3 ML VIAL.NEB. NEB SCH ×2 (08:08→14:15)
[2021-06-30] MEDS: CARVEDILOL 12.5 MG TABLET (FP) PO SCH (09:40)
[2021-06-30] MEDS: ENOXAPARIN NA (PORCINE) 40 MG/0.4 ML DISP.SYRIN SQ SCH (09:40)
[2021-06-30] MEDS: BUDESONIDE/FORMETEROL FUMARATE 80/4.5 mcg INHALER IH SCH (09:40)
[2021-06-30] MEDS: ASPIRIN COATED 81 MG TABLET.EC PO SCH (09:40)
[2021-06-30] MEDS ORDERED: PT OWN MED DRAWER 7, Y5N ONE (09:48)
[2021-06-30] MEDS: SACUBITRIL/VALSARTAN 49 MG-51 MG TABLET PO SCH (13:23)
[2021-06-30 14:09] VITALS: BP 106/63; PULSE 82; TEMP 97.9
== END 2021-06-30 16:29 | disposition home or self-care (01) | DRG 187 ==
LOC: JER 09:17 → JERBED 11:37 → J4S 17:10
PROVIDERS: ADMIT Internal Medicine; ATTEND Internal Medicine
PROC: 0W9B30Z Drainage of Left Pleural Cavity with Drainage Device, Percutaneous Approach (ICD-10-PCS; principal; 2021-06-27)
PROC: 0W9B30Z Drainage of Left Pleural Cavity with Drainage Device, Percutaneous Approach (ICD-10-PCS; 2021-06-27)
DX: J90 Pleural effusion, not elsewhere classified (principal); I42.8 Other cardiomyopathies; I50.22 Chronic systolic (congestive) heart failure; I31.3 Pericardial effusion (noninflammatory); J45.909 Unspecified asthma, uncomplicated; J84.10 Pulmonary fibrosis, unspecified; E07.9 Disorder of thyroid, unspecified; I11.0 Hypertensive heart disease with heart failure; E03.9 Hypothyroidism, unspecified; I25.10 Atherosclerotic heart disease of native coronary artery without angina pectoris; R06.02 Shortness of breath; I34.0 Nonrheumatic mitral (valve) insufficiency; E66.9 Obesity, unspecified; Z68.34 Body mass index [BMI] 34.0-34.9, adult
CPT/HCPCS: 32557; 36415; 71045-TC-FY; 71046-TC-FY; 71250-TC; 80053; 82042; 82150; 82550; 83615; 83735; 84100; 84157; 84478; 84484; 85025; 85610; 85730; 86480; 86850; 86900; 86901; 87070; 87075; 87102; 87116; 87205; 87206; 87210; 88108; 88305-TC; 88341-TC; 93005; 93010; 93306-TC; 94010; 94640; 99285-25; C9803; U0003; U0005